=== PATIENT | female | born 1940 | race Caucasian/White ===

== ENCOUNTER 2020-01-03 09:51 | Emergency (ER) | payer BC ==
[2020-01-03 10:00] VITALS: RESP 18; TEMP 98.1
[2020-01-03] MEDS ORDERED: SODIUM CHLORIDE 0.9% 1,000 ML IV STA (10:23)
--- NOTE | 2020-01-03 10:31 | ED ---
General Adult HPI - General Chief complaint: Weakness Stated complaint: weakness Time Seen by Provider: 01/03/20 10:09 Source: patient, family, RN notes reviewed Mode of arrival: wheelchair Limitations: no limitations - History of Present Illness Initial comments: Patient is a pleasant 79-year-old female presenting to the emergency department generalized weakness. Onset of symptoms was 3 or 4 days ago. Patient has decreased appetite however no nausea or vomiting. No constipation or diarrhea. There is a mild unsettling in her stomach however. No significant pain. No isolated area of weakness. No confusion. Patient is able to do her general activities however is very fatigued. No urinary symptoms. No chest pain or dyspnea. - Related Data Allergies Allergy/AdvReac Type Severity Reaction Status Date / Time Penicillins Allergy Unknown Verified 01/03/20 10:01 Review of Systems ROS Statement: Those systems with pertinent positive or pertinent negative responses have been documented in the HPI. ROS Other: All systems not noted in ROS Statement are negative. Constitutional: Denies: fever, chills Eyes: Denies: eye pain ENT: Denies: ear pain Respiratory: Denies: cough Cardiovascular: Denies: chest pain Endocrine: Reports: fatigue Gastrointestinal: Denies: nausea, vomiting, diarrhea, constipation Genitourinary: Denies: dysuria Musculoskeletal: Denies: back pain Skin: Denies: rash Neurological: Denies: weakness Past Medical History Past Medical History: Diabetes Mellitus, Hypertension, Myocardial Infarction (CT) Additional Past Medical History / Comment(s): 1 functioning kidney Past Surgical History: Appendectomy, Heart Catheterization With Stent, T onsillectomy, Tubal Ligation Smoking Status: Never smoker Past Alcohol Use History: None Reported Past Drug Use History: None Reported General Exam Limitations: no limitations General appearance: alert, in no apparent distress Head exam: Present: normocephalic Eye exam: Present: normal appearance, PERRL, EOMI ENT exam: Present: normal oropharynx Neck exam: Present: normal inspection. Absent: tenderness, meningismus Respiratory exam: Present: normal lung sounds bilaterally Cardiovascular Exam: Present: regular rate, normal rhythm GI/Abdominal exam: Present: soft. Absent: tenderness Extremities exam: Present: normal inspection. Absent: pedal edema, calf tenderness Neurological exam: Present: alert, oriented X3, CN II-XII intact. Absent: motor sensory deficit Psychiatric exam: Present: normal affect, normal mood Skin exam: Present: normal color Course Vital Signs 01/03/20 09:57 Temperature 98.1 F Pulse Rate 69 Respiratory 18 Rate Blood Pressure 158/79 O2 Sat by Pulse 96 Oximetry EKG Findings - EKG Comments: EKG Findings:: Normal sinus rhythm 72. VT 176. QRS 86. QT 432. QTC 473. Normal axis. Normal QRS. Nonspecific T waves. Medical Decision Making - Medical Decision Making Patient reevaluated and resting comfortably in bed. Patient has no additional complaints at this time. Abdomen remained soft and nontender. Patient states she is still able to do activities of daily living. Patient and family updated on results. Patient and family are comfortable with discharge home. Advised to follow-up in emergency Department is symptoms worsen. Advised to follow-up with primary care physician this week. - Lab Data Result diagrams: 01/03/20 10:31 01/03/20 10:31 Lab Results 01/03/20 01/03/20 01/03/20 Range/Units 10:23 10:31 10:31 WBC 8.2 (3.8-10.6) k/uL RBC 4.61 (3.80-5.40) m/uL Hgb 13.9 (11.4-16.0) gm/dL Hct 42.4 (34.0-46.0) % MCV 92.0 (80.0-100.0) fL MCH 30.3 (25.0-35.0) pg MCHC 32.9 (31.0-37.0) g/dL RDW 12.7 (11.5-15.5) % Plt Count 272 (150-450) k/uL Neutrophils % 65 % Lymphocytes % 26 % Monocytes % 5 % Eosinophils % 2 % Basophils % 1 % Neutrophils # 5.4 (1.3-7.7) k/uL Lymphocytes # 2.2 (1.0-4.8) k/uL Monocytes # 0.4 (0-1.0) k/uL Eosinophils # 0.1 (0-0.7) k/uL Basophils # 0.1 (0-0.2) k/uL PT (9.0-12.0) sec INR (<1.2) APTT (22.0-30.0) sec Sodium 137 (137-145) mmol/L Potassium 4.4 (3.5-5.1) mmol/L Chloride 104 (98-107) mmol/L Carbon Dioxide 21 L (22-30) mmol/L Anion Gap 12 mmol/L BUN 16 (7-17) mg/dL Creatinine 1.10 H (0.52-1.04) mg/dL Est GFR (CKD-EPI)AfAm 54 (>60 ml/min/1.73 sqM) Est GFR (CKD-EPI)NonAf 47 (>60 ml/min/1.73 sqM) Glucose 145 H (74-99) mg/dL Calcium 9.5 (8.4-10.2) mg/dL Magnesium 1.9 (1.6-2.3) mg/dL Total Bilirubin 1.1 (0.2-1.3) mg/dL AST 22 (14-36) U/L ALT 17 (4-34) U/L Alkaline Phosphatase 84 (38-126) U/L Troponin I (0.000-0.034) ng/mL Total Protein 7.4 (6.3-8.2) g/dL Albumin 4.1 (3.5-5.0) g/dL TSH 3.580 (0.465-4.680) mIU/L Free T4 1.58 (0.78-2.19) ng/dL Free T3 pg/mL 3.6 (2.8-5.3) pg/ml Urine Color Yellow Urine Appearance Cloudy H (Clear) Urine pH 5.5 (5.0-8.0) Ur Specific Proctor 1.018 (1.001-1.035) Urine Protein 1+ H (Negative) Urine Glucose (UA) Negative (Negative) Urine Ketones Negative (Negative) Urine Blood Trace H (Negative) Urine Nitrite Negative (Negative) Urine Bilirubin Negative (Negative) Urine Urobilinogen <2.0 (<2.0) mg/dL Ur Leukocyte Esterase Negative (Negative) Urine RBC <1 (0-5) /hpf Urine WBC 3 (0-5) /hpf Ur Squamous Epith Cells 6 H (0-4) /hpf Urine Bacteria Few H (None) /hpf Urine Mucus Rare H (None) /hpf 01/03/20 01/03/20 Range/Units 10:31 10:31 WBC (3.8-10.6) k/uL RBC (3.80-5.40) m/uL Hgb (11.4-16.0) gm/dL Hct (34.0-46.0) % MCV (80.0-100.0) fL MCH (25.0-35.0) pg MCHC (31.0-37.0) g/dL RDW (11.5-15.5) % Plt Count (150-450) k/uL Neutrophils % % Lymphocytes % % Monocytes % % Eosinophils % % Basophils % % Neutrophils # (1.3-7.7) k/uL Lymphocytes # (1.0-4.8) k/uL Monocytes # (0-1.0) k/uL Eosinophils # (0-0.7) k/uL Basophils # (0-0.2) k/uL PT 9.8 (9.0-12.0) sec INR 0.9 (<1.2) APTT 21.7 L (22.0-30.0) sec Sodium (137-145) mmol/L Potassium (3.5-5.1) mmol/L Chloride (98-107) mmol/L Carbon Dioxide (22-30) mmol/L Anion Gap mmol/L BUN (7-17) mg/dL Creatinine (0.52-1.04) mg/dL Est GFR (CKD-EPI)AfAm (>60 ml/min/1.73 sqM) Est GFR (CKD-EPI)NonAf (>60 ml/min/1.73 sqM) Glucose (74-99) mg/dL Calcium (8.4-10.2) mg/dL Magnesium (1.6-2.3) mg/dL Total Bilirubin (0.2-1.3) mg/dL AST (14-36) U/L ALT (4-34) U/L Alkaline Phosphatase (38-126) U/L Troponin I <0.012 (0.000-0.034) ng/mL Total Protein (6.3-8.2) g/dL Albumin (3.5-5.0) g/dL TSH (0.465-4.680) mIU/L Free T4 (0.78-2.19) ng/dL Free T3 pg/mL (2.8-5.3) pg/ml Urine Color Urine Appearance (Clear) Urine pH (5.0-8.0) Ur Specific Proctor (1.001-1.035) Urine Protein (Negative) Urine Glucose (UA) (Negative) Urine Ketones (Negative) Urine Blood (Negative) Urine Nitrite (Negative) Urine Bilirubin (Negative) Urine Urobilinogen (<2.0) mg/dL Ur Leukocyte Esterase (Negative) Urine RBC (0-5) /hpf Urine WBC (0-5) /hpf Ur Squamous Epith Cells (0-4) /hpf Urine Bacteria (None) /hpf Urine Mucus (None) /hpf - Radiology Data Radiology results: image reviewed (Chest x-ray shows some calcification) Disposition Clinical Impression: Fatigue Disposition: HOME SELF-CARE Condition: Stable Instructions (If sedation given, give patient instructions): Fatigue (ED) Additional Instructions: Please follow-up with primary care physician in the next couple days for recheck. Return for increased weakness, abdominal pain, confusion, fevers, worsening symptoms or other concerns. Is patient prescribed a controlled substance at d/c from ED?: No Referrals: Thomas Lima MD [Primary Care Provider] - 1-2 days Time of Disposition: 12:11
[2020-01-03 10:43] LABS: Basophils # (A) 0.1 k/uL (0-0.2); Basophils % (A) 1 %; Eosinophils # (A) 0.1 k/uL (0-0.7); Eosinophils % (A) 2 %; HCT 42.4 % (34.0-46.0); HGB 13.9 gm/dL (11.4-16.0); Lymphocytes # (A) 2.2 k/uL (1.0-4.8); Lymphocytes % (A) 26 %; MCH 30.3 pg (25.0-35.0); MCHC 32.9 g/dL (31.0-37.0); Mean Platelet Volume 8.9; Monocytes # (A) 0.4 k/uL (0-1.0); Monocytes % (A) 5 %; Neutrophils # (A) 5.4 k/uL (1.3-7.7); Neutrophils % (A) 65 %; Platelet Count 272 k/uL (150-450); RBC 4.61 m/uL (3.80-5.40); RDW 12.7 % (11.5-15.5); WBC 8.2 k/uL (3.8-10.6)
[2020-01-03 10:52] LABS: Albumin 4.1 g/dL (3.5-5.0); Calcium 9.5 mg/dL (8.4-10.2); Magnesium 1.9 mg/dL (1.6-2.3); Potassium 4.4 mmol/L (3.5-5.1); Total Bilirubin 1.1 mg/dL (0.2-1.3); Total Protein 7.4 g/dL (6.3-8.2)
--- NOTE | 2020-01-03 10:54 | XR ---
EXAMINATION TYPE: XR chest 2V DATE OF EXAM: 01/03/2020 COMPARISON: NONE HISTORY: Weakness TECHNIQUE: Frontal and lateral views of the chest are obtained. FINDINGS: Patient is rotated. Aorta is dense. There is calcification present over the paratracheal re gion on the left towards the left lung apex, left upper lobe. Coronary artery calcifications present. Arthropathy present at the, clavicular joints. There is no focal air space opacity, pleural effusion , or pneumothorax seen. The cardiac silhouette size is within normal limits. The osseous structure s are intact. IMPRESSION: Calcification thought likely to be vascular overlying the left upper lobe. Coronary cristian ry disease.
[2020-01-03 10:58] LABS: INR 0.9 (<1.2); Prothrombin Time 9.8 sec (9.0-12.0)
[2020-01-03 11:03] LABS: Appearance,Urine Cloudy (Clear); Bacteria,Urine Few /hpf; Bilirubin,Urine Negative (Negative); Blood,Urine Trace (Negative); Color,Urine Yellow; Glucose,Urine (UA) Negative (Negative); Ketones,Urine Negative (Negative); Leukocyte Esterase,Urine Negative (Negative); Mucus,Urine Rare /hpf; Nitrite,Urine Negative (Negative); PH, Urine 5.5 (5.0-8.0); Protein,Urine 1+ (Negative); RBC,Urine <1 /hpf (0-5); Specific Gravity,Urine 1.018 (1.001-1.035); Squamous Epithelial Cell,Urine 6 /hpf (0-4); Urobilinogen,Urine <2.0 mg/dL (<2.0); WBC,Urine 3 /hpf (0-5)
[2020-01-03 11:07] LABS: Partial Thromboplastin Time 21.7 sec (22.0-30.0); T4, Free (Free Thyroxine) 1.58 ng/dL (0.78-2.19)
[2020-01-03] MEDS ORDERED: SODIUM CHLORIDE 0.9% 500 ML 500 ML IV ONE (12:00)
[2020-01-03] MEDS ORDERED: SODIUM CHLORIDE 0.9% 500 ML 500 ML IV STA (12:04)
[2020-01-03 12:50] VITALS: BP 146/62; PULSE 60
== END 2020-01-03 12:49 | disposition home or self-care (01) ==
LOC: EC 09:51
DX: R53.83 Other fatigue (principal); R53.1 Weakness; R63.0 Anorexia; I25.2 Old myocardial infarction; Z88.0 Allergy status to penicillin; Z95.5 Presence of coronary angioplasty implant and graft; Z53.8 Procedure and treatment not carried out for other reasons
CPT/HCPCS: 36415; 71046; 80053; 81001; 83735; 84439; 84443; 84481; 84484; 85025; 85610; 85730; 93005; 96360; 99285

== ENCOUNTER 2021-04-01 20:10 | Emergency (ER) | payer BC ==
[2021-04-01 20:38] VITALS: TEMP 99.1
[2021-04-01] MEDS ORDERED: SODIUM CHLORIDE 0.9% 1,000 ML IV STA (21:23)
--- NOTE | 2021-04-01 21:24 | ED ---
Weakness HPI - General Chief complaint: Upper Respiratory Infection Stated complaint: not eating or drinking Time Seen by Provider: 04/01/21 21:21 Source: patient, family, RN notes reviewed, old records reviewed Mode of arrival: wheelchair Limitations: no limitations - History of Present Illness Initial comments: This is an 78-year-old female DF for evaluation she complains weakness and cough. Cough for the point where she can't touch her breath and difficulty sleeping. Patient feels anxious. She also complains of significant weakness but her main complaint is inability to sleep. She has a fevers no nausea vomiting or diarrhea decreased appetite diminished appetite activity level over the last 2-3 days patient has diabetes high blood pressure and does have positive coronavirus vaccine 2 MD Complaint: generalized weakness -: days(s) (3) Severity: moderate Severity scale (1-10): 4 Quality: aching Consistency: constant Improves with: none Worsens with: none Context: history of similar Associated Symptoms: nausea/vomiting, shortness of breath - Related Data Home Medications Medication Instructions Recorded Confirmed Aspirin EC [Ecotrin Low Dose] 81 mg PO DAILY 01/03/20 04/01/21 Atorvastatin [Lipitor] 20 mg PO HS 01/03/20 04/01/21 Cholecalciferol [Vitamin D3 (25 2,000 unit PO DAILY 01/03/20 04/01/21 Mcg = 1000 Iu)] Gabapentin [Neurontin] 300 mg PO HS 01/03/20 04/01/21 Glimepiride [Amaryl] 2 mg PO [id number] 01/03/20 04/01/21 amLODIPine BES/OLMESARTAN MED 1 tab PO DAILY 01/03/20 04/01/21 [amLODIPine BES/OLMESARTAN MED 10-40 mg] metFORMIN HCL [Glucophage] 500 mg PO DAILY 01/03/20 04/01/21 Allergies Allergy/AdvReac Type Severity Reaction Status Date / Time Penicillins Allergy Unknown Verified 01/03/20 12:32 Review of Systems ROS Statement: Those systems with pertinent positive or pertinent negative responses have been documented in the HPI. ROS Other: All systems not noted in ROS Statement are negative. Past Medical History Past Medical History: Diabetes Mellitus, Hypertension, Myocardial Infarction ([place]) Additional Past Medical History / Comment(s): 1 functioning kidney Past Surgical History: Appendectomy, Heart Catheterization With Stent, Tonsillectomy, Tubal Ligation Smoking Status: Former smoker Past Alcohol Use History: None Reported Past Drug Use History: None Reported General Exam Limitations: no limitations General appearance: alert, in no apparent distress Head exam: Present: atraumatic, normocephalic, normal inspection Eye exam: Present: normal appearance, PERRL, EOMI. Absent: scleral icterus, conjunctival injection, periorbital swelling ENT exam: Present: normal exam, mucous membranes moist Neck exam: Present: normal inspection. Absent: tenderness, meningismus, lymphadenopathy Respiratory exam: Present: normal lung sounds bilaterally. Absent: respiratory distress, wheezes, rales, rhonchi, stridor Cardiovascular Exam: Present: regular rate, normal rhythm, normal heart sounds. Absent: systolic murmur, diastolic murmur, rubs, gallop, clicks GI/Abdominal exam: Present: soft, normal bowel sounds. Absent: distended, tenderness, guarding, rebound, rigid Extremities exam: Present: normal inspection, full ROM, normal capillary refill. Absent: tenderness, pedal edema, joint swelling, calf tenderness Back exam: Present: normal inspection Neurological exam: Present: alert, oriented X3, CN II-XII intact Psychiatric exam: Present: normal affect, normal mood Skin exam: Present: warm, dry, intact, normal color. Absent: rash Course Vital Signs 04/01/21 04/01/21 04/01/21 20:32 21:26 23:05 Temperature 99.1 F 99.1 F Pulse Rate 62 65 65 Respiratory 20 18 18 Rate Blood Pressure 143/54 185/79 175/67 O2 Sat by Pulse 93 L 97 97 Oximetry 04/01/21 04/01/21 23:26 23:37 Temperature Pulse Rate 62 64 Respiratory 20 Rate Blood Pressure 171/65 O2 Sat by Pulse 100 Oximetry - Reevaluation(s) Reevaluation #1: 04/01/21 22:27 Medical records reviewed Reevaluation #2: 04/01/21 22:27 Symptoms improved EKG Findings - EKG Comments: EKG Findings:: EKG shows sinus rhythm 61, MT 164 QRS 118 QTC 487 Medical Decision Making - Medical Decision Making 78 female diminished appetite not eating or drinking well symptoms are improving here in the ER family feels comfortable with discharge home - Lab Data Result diagrams: 04/01/21 22:53 06/06/21 22:53 Lab Results 04/01/21 04/01/21 04/01/21 Range/Units 22:53 22:53 22:53 WBC 10.4 (3.8-10.6) k/uL RBC 4.35 (3.80-5.40) m/uL Hgb 13.7 (11.4-16.0) gm/dL Hct 39.5 (34.0-46.0) % MCV 90.8 (80.0-100.0) fL MCH 31.4 (25.0-35.0) pg MCHC 34.6 (31.0-37.0) g/dL RDW 12.8 (11.5-15.5) % Plt Count 203 (150-450) k/uL MPV 9.0 Neutrophils % 67 % Lymphocytes % 23 % Monocytes % 7 % Eosinophils % 1 % Basophils % 1 % Neutrophils # 6.9 (1.3-7.7) k/uL Lymphocytes # 2.3 (1.0-4.8) k/uL Monocytes # 0.7 (0-1.0) k/uL Eosinophils # 0.1 (0-0.7) k/uL Basophils # 0.1 (0-0.2) k/uL PT 9.9 (9.0-12.0) sec INR 0.9 (<1.2) APTT 22.3 (22.0-30.0) sec Sodium 137 (137-145) mmol/L Potassium 4.0 (3.5-5.1) mmol/L Chloride 103 (98-107) mmol/L Carbon Dioxide 24 (22-30) mmol/L Anion Gap 10 mmol/L BUN 21 H (7-17) mg/dL Creatinine 1.05 H (0.52-1.04) mg/dL Est GFR (CKD-EPI)AfAm 57 (>60 ml/min/1.73 sqM) Est GFR (CKD-EPI)NonAf 50 (>60 ml/min/1.73 sqM) Glucose 92 (74-99) mg/dL Plasma Lactic Acid João (0.7-2.0) mmol/L Calcium 8.9 (8.4-10.2) mg/dL Phosphorus 3.1 (2.5-4.5) mg/dL Magnesium 2.1 (1.6-2.3) mg/dL Total Bilirubin 0.5 (0.2-1.3) mg/dL AST 26 (14-36) U/L ALT 14 (4-34) U/L Alkaline Phosphatase 74 (38-126) U/L Creatine Kinase 145 H (30-135) U/L Troponin I (0.000-0.034) ng/mL NT-Pro-B Natriuret Pep pg/mL Total Protein 6.8 (6.3-8.2) g/dL Albumin 3.7 (3.5-5.0) g/dL Coronavirus (PCR) (Not Detectd) 04/01/21 04/01/21 04/01/21 Range/Units 22:53 22:53 22:53 WBC (3.8-10.6) k/uL RBC (3.80-5.40) m/uL Hgb (11.4-16.0) gm/dL Hct (34.0-46.0) % MCV (80.0-100.0) fL MCH (25.0-35.0) pg MCHC (31.0-37.0) g/dL RDW (11.5-15.5) % Plt Count (150-450) k/uL MPV Neutrophils % % Lymphocytes % % Monocytes % % Eosinophils % % Basophils % % Neutrophils # (1.3-7.7) k/uL Lymphocytes # (1.0-4.8) k/uL Monocytes # (0-1.0) k/uL Eosinophils # (0-0.7) k/uL Basophils # (0-0.2) k/uL PT (9.0-12.0) sec INR (<1.2) APTT (22.0-30.0) sec Sodium (137-145) mmol/L Potassium (3.5-5.1) mmol/L Chloride (98-107) mmol/L Carbon Dioxide (22-30) mmol/L Anion Gap mmol/L BUN (7-17) mg/dL Creatinine (0.52-1.04) mg/dL Est GFR (CKD-EPI)AfAm (>60 ml/min/1.73 sqM) Est GFR (CKD-EPI)NonAf (>60 ml/min/1.73 sqM) Glucose (74-99) mg/dL Plasma Lactic Acid João 2.0 (0.7-2.0) mmol/L Calcium (8.4-10.2) mg/dL Phosphorus (2.5-4.5) mg/dL Magnesium (1.6-2.3) mg/dL Total Bilirubin (0.2-1.3) mg/dL AST (14-36) U/L ALT (4-34) U/L Alkaline Phosphatase (38-126) U/L Creatine Kinase (30-135) U/L Troponin I <0.012 (0.000-0.034) ng/mL NT-Pro-B Natriuret Pep 1650 pg/mL Total Protein (6.3-8.2) g/dL Albumin (3.5-5.0) g/dL Coronavirus (PCR) (Not Detectd) 04/01/21 Range/Units 23:41 WBC (3.8-10.6) k/uL RBC (3.80-5.40) m/uL Hgb (11.4-16.0) gm/dL Hct (34.0-46.0) % MCV (80.0-100.0) fL MCH (25.0-35.0) pg MCHC (31.0-37.0) g/dL RDW (11.5-15.5) % Plt Count (150-450) k/uL MPV Neutrophils % % Lymphocytes % % Monocytes % % Eosinophils % % Basophils % % Neutrophils # (1.3-7.7) k/uL Lymphocytes # (1.0-4.8) k/uL Monocytes # (0-1.0) k/uL Eosinophils # (0-0.7) k/uL Basophils # (0-0.2) k/uL PT (9.0-12.0) sec INR (<1.2) APTT (22.0-30.0) sec Sodium (137-145) mmol/L Potassium (3.5-5.1) mmol/L Chloride (98-107) mmol/L Carbon Dioxide (22-30) mmol/L Anion Gap mmol/L BUN (7-17) mg/dL Creatinine (0.52-1.04) mg/dL Est GFR (CKD-EPI)AfAm (>60 ml/min/1.73 sqM) Est GFR (CKD-EPI)NonAf (>60 ml/min/1.73 sqM) Glucose (74-99) mg/dL Plasma Lactic Acid João (0.7-2.0) mmol/L Calcium (8.4-10.2) mg/dL Phosphorus (2.5-4.5) mg/dL Magnesium (1.6-2.3) mg/dL Total Bilirubin (0.2-1.3) mg/dL AST (14-36) U/L ALT (4-34) U/L Alkaline Phosphatase (38-126) U/L Creatine Kinase (30-135) U/L Troponin I (0.000-0.034) ng/mL NT-Pro-B Natriuret Pep pg/mL Total Protein (6.3-8.2) g/dL Albumin (3.5-5.0) g/dL Coronavirus (PCR) Not Detected (Not Detectd) - Radiology Data Radiology results: report reviewed (Chest x-rays negative for acute disease), image reviewed Disposition Clinical Impression: Weakness Disposition: HOME SELF-CARE Condition: Good Instructions (If sedation given, give patient instructions): Weakness (ED) Is patient prescribed a controlled substance at d/c from ED?: No Referrals: Thomas Lima MD [Primary Care Provider] - 1-2 days
--- NOTE | 2021-04-01 22:04 | XR ---
EXAMINATION TYPE: XR chest 2V DATE OF EXAM: 04/01/2021 COMPARISON: 01/03/2020 HISTORY: Weakness TECHNIQUE: FINDINGS: Heart and mediastinum are normal. Lungs are clear of infiltrate. There are chest leads. Bon y thorax is intact. Costophrenic angles are clear. IMPRESSION: No active cardiopulmonary disease. No change.
[2021-04-01] MEDS ORDERED: IPRATROPIUM-ALBUTEROL 3 ML NEB INHALATION STA (22:27)
[2021-04-01] MEDS ORDERED: SODIUM CHLORIDE 0.9% 500 ML 500 ML IV STA (22:27)
[2021-04-01] MEDS ORDERED: DIAZEPAM 5 MG/ML 2 ML INJ IVP STA (22:27)
[2021-04-01] MEDS ORDERED: DEXAMETHASONE SOD PHOSPHATE 10 MG/ML 1 ML VIAL IV STA (22:27)
[2021-04-01 23:14] LABS: Basophils # (A) 0.1 k/uL (0-0.2); Basophils % (A) 1 %; Eosinophils # (A) 0.1 k/uL (0-0.7); Eosinophils % (A) 1 %; HCT 39.5 % (34.0-46.0); HGB 13.7 gm/dL (11.4-16.0); Lymphocytes # (A) 2.3 k/uL (1.0-4.8); Lymphocytes % (A) 23 %; MCH 31.4 pg (25.0-35.0); MCHC 34.6 g/dL (31.0-37.0); MCV 90.8 fL (80.0-100.0); Monocytes # (A) 0.7 k/uL (0-1.0); Monocytes % (A) 7 %; Neutrophils # (A) 6.9 k/uL (1.3-7.7); Neutrophils % (A) 67 %; Platelet Count 203 k/uL (150-450); RBC 4.35 m/uL (3.80-5.40); RDW 12.8 % (11.5-15.5); WBC 10.4 k/uL (3.8-10.6)
[2021-04-01 23:31] LABS: Albumin 3.7 g/dL (3.5-5.0); Calcium 8.9 mg/dL (8.4-10.2); Magnesium 2.1 mg/dL (1.6-2.3); Phosphorus 3.1 mg/dL (2.5-4.5); Total Bilirubin 0.5 mg/dL (0.2-1.3); Total Protein 6.8 g/dL (6.3-8.2)
[2021-04-01 23:35] LABS: INR 0.9 (<1.2); Partial Thromboplastin Time 22.3 sec (22.0-30.0); Prothrombin Time 9.9 sec (9.0-12.0)
[2021-04-01 23:40] VITALS: BP 171/65; PULSE 64; RESP 20
== END 2021-04-02 00:15 | disposition home or self-care (01) ==
LOC: EC 20:10
DX: R53.1 Weakness (principal); E11.9 Type 2 diabetes mellitus without complications; I10 Essential (primary) hypertension; I25.2 Old myocardial infarction; Z90.89 Acquired absence of other organs; Z95.5 Presence of coronary angioplasty implant and graft; Z90.09 Acquired absence of other part of head and neck; Z98.51 Tubal ligation status; Z87.891 Personal history of nicotine dependence
CPT/HCPCS: 94640; 93005; 83880; 80053; 82550; 83605; 83735; 84100; 84484; 85025; 85610; 85730; 87635; 71046; 99285; 96374; 96375; 96361; J1100; J3360

== ENCOUNTER 2022-11-13 19:28 | Emergency (ER) | payer BC ==
--- NOTE | 2022-11-13 20:09 | ED ---
General Adult HPI - General Source: patient, family, RN notes reviewed, old records reviewed Mode of arrival: EMS Limitations: no limitations <Rogeilo Spangler - Last Filed: 11/13/22 21:08> <Yon Tirado - Last Filed: 11/13/22 23:10> - General Chief complaint: Syncope Stated complaint: Near Syncope Time Seen by Provider: 11/13/22 19:28 - History of Present Illness Initial comments: This is an 81-year-old female presents emergency department after having had a syncopal episode. Patient was at [facility] she wasn't feeling well little bit nauseated and then she passed out for approximately 30 seconds according to bystanders. Patient denies any fever chills per patient denies any chest pain palpitations difficulty breathing shortness of breath per patient denies any vomiting however she still nauseous patient patient denies any diarrhea. Patient denies any abdominal pain. Patient states she ate and drank as much as she normally did today. Patient states she still doesn't feel quite right but she can't really describe how she feels off. Patient denies any pain currently. (Rogelio Spangler) - Related Data Home Medications Medication Instructions Recorded Confirmed Aspirin EC [Ecotrin Low Dose] 81 mg PO DAILY 01/03/20 04/01/21 Atorvastatin [Lipitor] 20 mg PO HS 01/03/20 04/01/21 Cholecalciferol [Vitamin D3 (25 2,000 unit PO DAILY 01/03/20 04/01/21 Mcg = 1000 Iu)] Gabapentin [Neurontin] 300 mg PO HS 01/03/20 04/01/21 Glimepiride [Amaryl] 2 mg PO AC-BRKFST 01/03/20 04/01/21 amLODIPine BES/OLMESARTAN MED 1 tab PO DAILY 01/03/20 04/01/21 [amLODIPine BES/OLMESARTAN MED 10-40 mg] metFORMIN HCL [Glucophage] 500 mg PO DAILY 01/03/20 04/01/21 Previous Rx's Medication Instructions Recorded Sulfamethox-Tmp 800-160Mg [Bactrim 1 tab PO Q12HR 7 Days #14 tab 11/13/22 DS 800-160 mg] Allergies Allergy/AdvReac Type Severity Reaction Status Date / Time Penicillins Allergy Unknown Verified 01/03/20 12:32 Review of Systems ROS Other: All systems not noted in ROS Statement are negative. <Rogelio Spangler - Last Filed: 11/13/22 21:08> ROS Other: All systems not noted in ROS Statement are negative. <Yon Tirado - Last Filed: 11/13/22 23:10> ROS Statement: Those systems with pertinent positive or pertinent negative responses have been documented in the HPI. Past Medical History Past Medical History: Diabetes Mellitus, Hypertension, Myocardial Infarction (SD) Additional Past Medical History / Comment(s): 1 functioning kidney Past Surgical History: Appendectomy, Heart Catheterization With Stent, Tonsillectomy, Tubal Ligation Smoking Status: Former smoker Past Alcohol Use History: None Reported Past Drug Use History: None Reported <Rogelio Spangler - Last Filed: 11/13/22 21:08> General Exam Limitations: no limitations <Rogelio Spangler - Last Filed: 11/13/22 21:08> - General Exam Comments Initial Comments: GENERAL: Patient is well-developed and well-nourished. Patient is nontoxic and well- hydrated and is in mild distress. ENT: Neck is soft and supple. No significant lymphadenopathy is noted. Oropharynx is clear. Moist mucous membranes. Neck has full range of motion without eliciting any pain. EYES: The sclera were anicteric and conjunctiva were pink and moist. Extraocular movements were intact and pupils were equal round and reactive to light. Eyelids were unremarkable. PULMONARY: Unlabored respirations. Good breath sounds bilaterally. No audible rales rhonchi or wheezing was noted. CARDIOVASCULAR: There is a regular rate and rhythm without any murmurs gallops or rubs. ABDOMEN: Soft and nontender with normal bowel sounds. SKIN: Skin is clear with no lesions or rashes and otherwise unremarkable. NEUROLOGIC: Patient is alert and oriented x3. Cranial nerves II through XII are grossly intact. Motor and sensory are also intact. Normal speech, volume and content. Symmetrical smile. MUSCULOSKELETAL: Normal extremities with adequate strength and full range of motion. LYMPHATICS: No significant lymphadenopathy is noted PSYCHIATRIC: Normal psychiatric evaluation. (Rogelio Spangler) Course Vital Signs 11/13/22 11/13/22 19:39 19:59 Temperature 98 F Pulse Rate 66 60 Respiratory 16 16 Rate Blood Pressure 130/55 155/55 O2 Sat by Pulse 94 L 96 Oximetry Medical Decision Making - Lab Data Result diagrams: 11/13/22 19:49 11/13/22 19:49 <Rogelio Spangler - Last Filed: 11/13/22 21:08> - Lab Data Result diagrams: 11/13/22 19:49 11/13/22 19:49 <Yon Tirado - Last Filed: 11/13/22 23:10> - Medical Decision Making EKG was interpreted by myself. EKG shows sinus rhythm at 63 bpm NC interval is 183 QRS is 130 QT interval 500 QTC is 507 per patient's EKG shows no ST segment elevation or depression. Patient has a right bundle branch block Was pt. sent in by a medical professional or institution (, PA, PARTS CATALOGUER, urgent care, hospital, or detention...) When possible be specific @ -[No] Did you speak to anyone other than the patient for history (EMS, parent, family, police, friend...)? What history was obtained from this source @ -EMS and family gave the history since the patient was passed out and unable to remember passing out Did you review nursing and triage notes (agree or disagree)? Why? @ -[I reviewed and agree with nursing and triage notes] Were old charts reviewed (outside hosp., previous admission, EMS record, old EKG, old radiological studies, urgent care reports/EKG's, detention records)? Report findings @ -I compared to old EKGs and labs current labs and EKGs Differential Diagnosis (chest pain, altered mental status, abdominal pain women, abdominal pain men, vaginal bleeding, weakness, fever, dyspnea, syncope, headache, dizziness, GI bleed, back pain, seizure, CVA, palpatations, mental health)? @ -Differential Syncope: Valvular disease, hypertrophic cardiomyopathy, pulmonary embolism, tamponade, tachycardia, bradycardia, SD, hypovolemia, hemorrhage, dissection, anemia, intracranial hemorrhage, seizure, hypoglycemia, carbon monoxide poisoning, this is not meant to be an all-inclusive list. EKG interpreted by me (3pts min.). @ -[As above] X-rays interpreted by me (1pt min.). @ -Chest x-ray shows no acute abnormality. CT interpreted by me (1pt min.). @ -[None done] U/S interpreted by me (1pt. min.). @ -[None done] What testing was considered but not performed or refused? (CT, X-rays, U/S, labs)? Why? @ -[None] What meds were considered but not given or refused? Why? @ -[None] Did you discuss the management of the patient with other professionals (professionals i.e. , PA, PARTS CATALOGUER, lab, RT, psych nurse, social media project manager, cpr ambulance driver, teacher, environmental health officer, case consultant)? Give summary @ -[No] Was smoking cessation discussed for >3mins.? @ -[No] Was critical care preformed (if so, how long)? @ -[No] Were there social determinants of health that impacted care today? How? (Homelessness, low income, unemployed, alcoholism, drug addiction, transportation, low edu. Level, literacy, decrease access to med. care, fdc, rehab)? @ -[No] Was there de-escalation of care discussed even if they declined (Discuss DNR or withdrawal of care, Hospice)? DNR status @ -[No] What co-morbidities impacted this encounter? (DM, HTN, Smoking, COPD, CAD, Cancer, CVA, ARF, Chemo, Hep., AIDS, mental health diagnosis, sleep apnea, morbid obesity)? @ -[None] Was patient admitted / discharged? Hospital course, mention meds given and route, prescriptions, significant lab abnormalities, going to OR and other pertinent info. @ -Patient was orthostatic positive in the emergency department and received [address] Yon Tirado will be following up on this patient and taking over the care of 9 PM (Rogelio Spangler) Was patient admitted / discharged? Hospital course, mention meds given and route, prescriptions, significant lab abnormalities, going to OR and other pertinent info. @ -Patient was signed out to me pending results of urinalysis. Patient presents orthostatic positive for what appears to be a syncopal episode while she was [facility] a [facility]. She is feeling improved at this time. She states she cannot pee but will continue to try. Overall feels improved at this time. Laboratory studies and workup were unremarkable. Her, including just a slight leukocytosis of 11. Troponin undetectable. Covid, flu, RSV negative. Chest x- ray revealed no acute cardiopulmonary process. We are just awaiting the urinalysis. Patient was in agreement with waiting, and we'll continue to attempt. After long delay her finally able to send a urine sample. It is positive for UTI. Patient will be started on antibiotics, Bactrim twice a day and she'll receive a dose here in the department. I did the patient and her family members and they were in agreement with this plan. She'll be discharged home at this time. Strict return precautions were discussed. I will provide the patient with a prescription for Bactrim. I instructed the patient to follow up with their PCP in the next 1-3 days. I explained that the patient should return to the emergency department if they experience any worsening symptoms. Strict return precautions were discussed with the patient. The patient expressed understanding of these instructions. I answered all questions that the patient had. The patient was discharged home in good condition with their prescriptions and follow up information. Undiagnosed new problem with uncertain prognosis? @ -No Drug Therapy requiring intensive monitoring for toxicity (Heparin, Nitro, Insulin, Cardizem)? @ -No Were any procedures done? @ -No Diagnosis/symptom? @ -UTI Acute, or Chronic, or Acute on Chronic? @ -Acute Uncomplicated (without systemic symptoms) or Complicated (systemic symptoms)? @ -Complicated Side effects of treatment? @ -No Exacerbation, Progression, or Severe Exacerbation? @ -No Poses a threat to life or bodily function? How? (Chest pain, USA, SD, pneumonia, PE, COPD, DKA, ARF, appy, cholecystitis, CVA, Diverticulitis, Homicidal, Suicidal, threat to staff... and all critical care pts) @ -Yes if untreated can result in significant morbidity and mortality. Diagnosis/symptom? @ -Syncope Acute, or Chronic, or Acute on Chronic? @ -Acute Uncomplicated (without systemic symptoms) or Complicated (systemic symptoms)? @ -Uncomplicated Side effects of treatment? @ -none Exacerbation, Progression, or Severe Exacerbation] @ -no Poses a threat to life or bodily function? @ -no (Yon Tirado) - Lab Data Lab Results 11/13/22 11/13/22 11/13/22 Range/Units 19:49 19:49 19:49 WBC 11.0 H (3.8-10.6) k/uL RBC 4.10 (3.80-5.40) m/uL Hgb 12.6 (11.4-16.0) gm/dL Hct 38.4 (34.0-46.0) % MCV 93.5 (80.0-100.0) fL MCH 30.8 (25.0-35.0) pg MCHC 33.0 (31.0-37.0) g/dL RDW 13.1 (11.5-15.5) % Plt Count 221 (150-450) k/uL MPV 9.8 Neutrophils % 59 % Lymphocytes % 32 % Monocytes % 4 % Eosinophils % 3 % Basophils % 1 % Neutrophils # 6.4 (1.3-7.7) k/uL Lymphocytes # 3.5 (1.0-4.8) k/uL Monocytes # 0.5 (0-1.0) k/uL Eosinophils # 0.3 (0-0.7) k/uL Basophils # 0.1 (0-0.2) k/uL Sodium 138 (137-145) mmol/L Potassium 4.1 (3.5-5.1) mmol/L Chloride 108 H (98-107) mmol/L Carbon Dioxide 23 (22-30) mmol/L Anion Gap 7 mmol/L BUN 19 H (7-17) mg/dL Creatinine 0.93 (0.52-1.04) mg/dL Est GFR (CKD-EPI)AfAm 66 (>60 ml/min/1.73 sqM) Est GFR (CKD-EPI)NonAf 57 (>60 ml/min/1.73 sqM) Glucose 116 H (74-99) mg/dL Calcium 8.7 (8.4-10.2) mg/dL Magnesium 1.7 (1.6-2.3) mg/dL Total Bilirubin 0.7 (0.2-1.3) mg/dL AST 18 (14-36) U/L ALT 16 (4-34) U/L Alkaline Phosphatase 56 (38-126) U/L Troponin I <0.012 (0.000-0.034) ng/mL Total Protein 6.3 (6.3-8.2) g/dL Albumin 3.4 L (3.5-5.0) g/dL Urine Color Urine Appearance (Clear) Urine pH (5.0-8.0) Ur Specific [place] (1.001-1.035) Urine Protein (Negative) Urine Glucose (UA) (Negative) Urine Ketones (Negative) Urine Blood (Negative) Urine Nitrite (Negative) Urine Bilirubin (Negative) Urine Urobilinogen (<2.0) mg/dL Ur Leukocyte Esterase (Negative) Urine RBC (0-5) /hpf Urine WBC (0-5) /hpf Ur Squamous Epith Cells (0-4) /hpf Urine Bacteria (None) /hpf Hyaline Casts (0-2) /lpf Urine Mucus (None) /hpf Influenza Type A (PCR) (Not Detectd) Influenza Type B (PCR) (Not Detectd) RSV (PCR) (Not Detectd) SARS-CoV-2 (PCR) (Not Detectd) 11/13/22 11/13/22 Range/Units 19:49 22:09 WBC (3.8-10.6) k/uL RBC (3.80-5.40) m/uL Hgb (11.4-16.0) gm/dL Hct (34.0-46.0) % MCV (80.0-100.0) fL MCH (25.0-35.0) pg MCHC (31.0-37.0) g/dL RDW (11.5-15.5) % Plt Count (150-450) k/uL MPV Neutrophils % % Lymphocytes % % Monocytes % % Eosinophils % % Basophils % % Neutrophils # (1.3-7.7) k/uL Lymphocytes # (1.0-4.8) k/uL Monocytes # (0-1.0) k/uL Eosinophils # (0-0.7) k/uL Basophils # (0-0.2) k/uL Sodium (137-145) mmol/L Potassium (3.5-5.1) mmol/L Chloride (98-107) mmol/L Carbon Dioxide (22-30) mmol/L Anion Gap mmol/L BUN (7-17) mg/dL Creatinine (0.52-1.04) mg/dL Est GFR (CKD-EPI)AfAm (>60 ml/min/1.73 sqM) Est GFR (CKD-EPI)NonAf (>60 ml/min/1.73 sqM) Glucose (74-99) mg/dL Calcium (8.4-10.2) mg/dL Magnesium (1.6-2.3) mg/dL Total Bilirubin (0.2-1.3) mg/dL AST (14-36) U/L ALT (4-34) U/L Alkaline Phosphatase (38-126) U/L Troponin I (0.000-0.034) ng/mL Total Protein (6.3-8.2) g/dL Albumin (3.5-5.0) g/dL Urine Color Yellow Urine Appearance Cloudy H (Clear) Urine pH 5.0 (5.0-8.0) Ur Specific [place] 1.014 (1.001-1.035) Urine Protein Trace H (Negative) Urine Glucose (UA) Negative (Negative) Urine Ketones Negative (Negative) Urine Blood Negative (Negative) Urine Nitrite Positive H (Negative) Urine Bilirubin Negative (Negative) Urine Urobilinogen <2.0 (<2.0) mg/dL Ur Leukocyte Esterase Large H (Negative) Urine RBC 2 (0-5) /hpf Urine WBC 20 H (0-5) /hpf Ur Squamous Epith Cells 1 (0-4) /hpf Urine Bacteria Moderate H (None) /hpf Hyaline Casts 8 H (0-2) /lpf Urine Mucus Occasional H (None) /hpf Influenza Type A (PCR) Not Detected (Not Detectd) Influenza Type B (PCR) Not Detected (Not Detectd) RSV (PCR) Not Detected (Not Detectd) SARS-CoV-2 (PCR) Not Detected (Not Detectd) Disposition <Rogelio Spangler - Last Filed: 11/13/22 21:08> Is patient prescribed a controlled substance at d/c from ED?: No Time of Disposition: 22:50 <Yon Tirado - Last Filed: 11/13/22 23:10> Clinical Impression: Syncope, UTI (urinary tract infection) Disposition: HOME SELF-CARE Condition: Good Instructions (If sedation given, give patient instructions): Urinary Tract Infection in Women (ED) Prescriptions: Sulfamethox-Tmp 800-160Mg [Bactrim DS 800-160 mg] 1 tab PO Q12HR 7 Days #14 tab Referrals: Thomas Lima MD [Primary Care Provider] - 1-2 days
[2022-11-13 20:18] LABS: Basophils # (A) 0.1 k/uL (0-0.2); Basophils % (A) 1 %; Eosinophils # (A) 0.3 k/uL (0-0.7); Eosinophils % (A) 3 %; HCT 38.4 % (34.0-46.0); HGB 12.6 gm/dL (11.4-16.0); Lymphocytes # (A) 3.5 k/uL (1.0-4.8); Lymphocytes % (A) 32 %; MCH 30.8 pg (25.0-35.0); MCV 93.5 fL (80.0-100.0); Mean Platelet Volume 9.8; Monocytes # (A) 0.5 k/uL (0-1.0); Monocytes % (A) 4 %; Neutrophils # (A) 6.4 k/uL (1.3-7.7); Neutrophils % (A) 59 %; Platelet Count 221 k/uL (150-450); RDW 13.1 % (11.5-15.5)
[2022-11-13 20:28] LABS: Albumin 3.4 g/dL (3.5-5.0); Calcium 8.7 mg/dL (8.4-10.2); Magnesium 1.7 mg/dL (1.6-2.3); Potassium 4.1 mmol/L (3.5-5.1); Total Bilirubin 0.7 mg/dL (0.2-1.3); Total Protein 6.3 g/dL (6.3-8.2)
[2022-11-13] MEDS ORDERED: SODIUM CHLORIDE 0.9% 1,000 ML IV ONE (20:36)
--- NOTE | 2022-11-13 20:50 | XR ---
EXAMINATION TYPE: XR chest 2V DATE OF EXAM: 11/13/2022 8:46 PM COMPARISON: Chest radiographs from 04/01/2021 TECHNIQUE: XR chest 2V Frontal and lateral views of the chest. CLINICAL INDICATION:Female, 81 years old with history of Chest Pain; FINDINGS: Lungs/Pleura: There is no evidence of pleural effusion, focal consolidation, or pneumothorax. Hyperi nflation. Pulmonary vascularity: Unremarkable. Heart/mediastinum: Cardiomediastinal silhouette is unremarkable. Atherosclerotic calcifications are seen in the aorta. Musculoskeletal: No acute osseous pathology. IMPRESSION: 1. No acute cardiopulmonary disease/process. No significant change from prior examination. 2. COPD changes.
[2022-11-13 22:38] LABS: Appearance,Urine Cloudy (Clear); Bacteria,Urine Moderate /hpf; Bilirubin,Urine Negative (Negative); Blood,Urine Negative (Negative); Color,Urine Yellow; Glucose,Urine (UA) Negative (Negative); Hyaline Casts,Urine 8 /lpf (0-2); Ketones,Urine Negative (Negative); Leukocyte Esterase,Urine Large (Negative); Mucus,Urine Occasional /hpf; Nitrite,Urine Positive (Negative); Protein,Urine Trace (Negative); RBC,Urine 2 /hpf (0-5); Specific Gravity,Urine 1.014 (1.001-1.035); Squamous Epithelial Cell,Urine 1 /hpf (0-4); Urobilinogen,Urine <2.0 mg/dL (<2.0); WBC,Urine 20 /hpf (0-5)
[2022-11-13] MEDS ORDERED: SULFAMETHOX-TMP 800-160MG 1 EACH TAB PO STA ×2 (22:51→22:54)
[2022-11-13 23:46] VITALS: BP 132/87; PULSE 72; RESP 18; TEMP 98.2
== END 2022-11-13 23:46 | disposition home or self-care (01) ==
LOC: EC 19:28
DX: R55 Syncope and collapse (principal); N39.0 Urinary tract infection, site not specified; E11.9 Type 2 diabetes mellitus without complications; I10 Essential (primary) hypertension; I25.2 Old myocardial infarction; Z87.891 Personal history of nicotine dependence; Z88.0 Allergy status to penicillin; Z79.84 Long term (current) use of oral hypoglycemic drugs; Z79.899 Other long term (current) drug therapy; Z20.822 Contact with and (suspected) exposure to COVID-19; Z79.82 Long term (current) use of aspirin
CPT/HCPCS: 36415; 71046; 80053; 81001; 83735; 84484; 85025; 87077; 87086; 87186; 87636; 93005; 96360; 99285

== ENCOUNTER 2022-11-16 15:51 | Inpatient (IN) | payer BC ==
[2022-11-16] MEDS ORDERED: SODIUM CHLORIDE 0.9% 1,000 ML IV STA (16:05)
[2022-11-16] MEDS ORDERED: ONDANSETRON 4 MG/2 ML VIAL IVP STA (16:05)
[2022-11-16 16:11] LABS: Glucose,Whole Blood 55 mg/dL (70-110)
--- NOTE | 2022-11-16 16:12 | ED ---
Weakness HPI - General Chief complaint: Weakness Stated complaint: Weakness Time Seen by Provider: 11/16/22 15:59 Source: patient, family, EMS, RN notes reviewed Mode of arrival: EMS Limitations: no limitations - History of Present Illness Initial comments: This is an 81-year-old female who presents to the emergency department for weakness. States that this has been present for the last 3-4 days. She was evaluated here on 11/13 and diagnosed with UTI. She was given a prescription for Bactrim, however she feels like she has not gotten any better. States that she feels nauseous and queasy and has not been wanting to eat, subsequently causing her blood sugar to drop. She is a diabetic but does not use insulin. She has not had any medication changes recently. She had 2 falls today. This morning, she states that she woke up on the floor. She does not remember this fall and is unsure if she hit her head or sustained any injuries. Earlier this afternoon, when she was walking to the bathroom, she subsequently felt weak again, causing her to stumble and fall, landing on her bottom. She's not currently complaining of any pain. She takes a baby aspirin daily and is otherwise not on any blood thinners. Denies any chest pain or shortness of breath. Denies any fevers, chills, sore throat, cough, dyspnea, chest pain, palpitat ions, abdominal pain, vomiting, diarrhea, back pain, or headaches. MD Complaint: generalized weakness Onset/Timin -: days(s) - Related Data Home Medications Medication Instructions Recorded Confirmed Aspirin EC [Ecotrin Low Dose] 81 mg PO DAILY 01/03/20 11/16/22 Atorvastatin [Lipitor] 20 mg PO 01/03/20 11/16/22 Cholecalciferol [Vitamin D3 (25 50 mcg PO DAILY 01/03/20 11/16/22 Mcg = 1000 Iu)] Gabapentin [Neurontin] 300 mg PO 01/03/20 11/16/22 Glimepiride [Amaryl] 2 mg PO DAILY 01/03/20 11/16/22 metFORMIN HCL [Glucophage] 500 mg PO DAILY 01/03/20 11/16/22 Alendronate Sodium [Fosamax] 70 mg PO TU 11/16/22 11/16/22 Anastrozole [Arimidex] 1 mg PO DAILY 11/16/22 11/16/22 amLODIPine BESYLATE/BENAZEPRIL 1 cap PO DAILY 11/16/22 11/16/22 [amLODIPine BESYLATE/BENAZEPRIL 10-40 mg] hydrALAZINE HCL [Apresoline] 10 mg PO TID 11/16/22 11/16/22 hydroCHLOROthiazide [Hydrodiuril] 25 mg PO DAILY 11/16/22 11/16/22 Previous Rx's Medication Instructions Recorded Sulfamethox-Tmp 800-160Mg [Bactrim 1 tab PO Q12HR 7 Days #14 tab 11/13/22 DS 800-160 mg] Allergies Allergy/AdvReac Type Severity Reaction Status Date / Time Penicillins Allergy "Passes Verified 11/16/22 17:47 out" Review of Systems ROS Statement: Those systems with pertinent positive or pertinent negative responses have been documented in the HPI. ROS Other: All systems not noted in ROS Statement are negative. Past Medical History Past Medical History: Diabetes Mellitus, Hypertension, Myocardial Infarction (MA) Additional Past Medical History / Comment(s): 1 functioning kidney History of Any Multi-Drug Resistant Organisms: None Reported Past Surgical History: Appendectomy, Heart Catheterization With Stent, Tonsillectomy, Tubal Ligation Past Psychological History: No Psychological Hx Reported Smoking Status: Former smoker Past Alcohol Use History: None Reported Past Drug Use History: None Reported General Exam Limitations: no limitations General appearance: alert, in no apparent distress Head exam: Present: atraumatic, normocephalic, normal inspection Respiratory exam: Present: normal lung sounds bilaterally. Absent: respiratory distress, wheezes, rales, rhonchi, stridor Cardiovascular Exam: Present: regular rate, normal rhythm, normal heart sounds. Absent: systolic murmur, diastolic murmur, rubs, gallop, clicks GI/Abdominal exam: Present: soft, normal bowel sounds. Absent: distended, tenderness, guarding, rebound, rigid Neurological exam: Present: alert, oriented X3, CN II-XII intact Psychiatric exam: Present: normal affect, normal mood Skin exam: Present: warm, dry, intact, normal color. Absent: rash Course Vital Signs 11/16/22 11/16/22 11/16/22 15:52 19:00 20:17 Temperature 98.2 F Pulse Rate 75 77 74 Respiratory 18 16 Rate Blood Pressure 146/75 160/59 135/65 O2 Sat by Pulse 96 97 Oximetry Medical Decision Making - Medical Decision Making This is an 81-year-old female who presents to the emergency department for generalized weakness. Was pt. sent in by a medical professional or institution? @ -No Did you speak to anyone other than the patient for history? @ -EMS and family Did you review nursing and triage notes? @ -Agree, accurate with regards to the patient's symptoms. Were old charts reviewed? @ -Yes, urine culture from 11/13. Preliminary results show gram negative bacilli, however the bacteria and culture/sensitivity report are not back. CBC and CMP from 11/13 were also reviewed. Differential Diagnosis? @ -Differential Weakness: Hypoglycemia, shock, sepsis, hyponatremia, anemia, infection, MA, ETOH, adverse medicine reaction, overdose, stroke, this is not meant to be an all-inclusive list. EKG interpreted by me (3pts min.)? @ -Sinus rhythm. Ventricular rate 77 bpm, [place] interval 188 ms, QRS duration 126 ms, QTC 473 ms. X-rays interpreted by me (1pt min.)? @ -Chest x-ray obtained, my interpretation identifies no localized consolidations or infiltrates. X-ray of the lumbosacral spine obtained as well and my interpretation identifies no acute fractures. CT interpreted by me (1pt min.)? @ -Computed tomography scan of the brain and c-spine obtained. My interpretation identifies no evidence of an acute intracranial hemorrhage, skull fracture, or cervical spine fracture. What testing was considered but not performed? (CT, X-rays, U/S, labs)? Why? @ -None What meds were considered but not given? Why? @ -None Did you discuss the management of the patient with other professionals? @ -No Did you reconcile home meds? @ -No Was smoking cessation discussed for >3mins.? @ -No Was critical care preformed (if so, how long)? @ -No Were there social determinants of health that impacted care today? How? (Homelessness, low income, unemployed, alcoholism, drug addiction, transportation, low edu. Level, literacy, decrease access to med. care, nursing home, rehab)? @ -No Was there de-escalation of care discussed even if they declined? (Discuss DNR or withdrawal of care, Hospice)? @ -No What co-morbidities impacted this encounter? (DM, HTN, Smoking, COPD, CAD, Cancer, CVA, Hep., AIDS, mental health diagnosis, sleep apnea, morbid obesity)? @ -DM, HTN, obesity, CKD, hx of an MA. Was patient admitted / discharged? @ -Per EMS, her blood sugar was 62 and they subsequently gave her 15 mg of oral glucose. Recheck of blood sugar was found to be 55. She was subsequently given half of an ampule of dextrose. Repeat glucose was 99. Lab work reveals no evidence of leukocytosis, however she does have a lactic acid of 4.4. She was subsequently given a liter bolus of normal saline. Her kidney function has also worsened when compared with her lab work on 11/13. Given that she had a fall with unknown injury and possible loss of consciousness, computed tomography scan of the brain and c-spine was obtained. This revealed no acute findings. Additionally, x-ray of the chest and lumbosacral spine were obtained with no acute findings noted. She was given a dose of ceftriaxone with blood cultures obtained prior. Given the hypoglycemia, progressive weakness, SUSSY, falls, and elevated lactic acid, the patient was admitted to medicine for further management. I did hold her Amaryl and Metformin home medications due to the hypoglycemia. PT/OT consults placed as well. Undiagnosed new problem with uncertain prognosis? @ -Hypoglycemia, weakness Drug Therapy requiring intensive monitoring for toxicity (Heparin, Nitro, Insulin, Cardizem)? @ -None Were any procedures done? @ -None Diagnosis/symptom? @ -Hypoglycemia Acute, or Chronic, or Acute on Chronic? @ -Acute Uncomplicated (without systemic symptoms) or Complicated (systemic symptoms)? @ -Complicated Side effects of treatment? @ -None Exacerbation, Progression, or Severe Exacerbation] @ -Not applicable Poses a threat to life or bodily function? @ -Yes Diagnosis/symptom? @ -Weakness Acute, or Chronic, or Acute on Chronic? @ -Acute Uncomplicated (without systemic symptoms) or Complicated (systemic symptoms)? @ -Complicated Side effects of treatment? @ -None Exacerbation, Progression, or Severe Exacerbation] @ -Not applicable Poses a threat to life or bodily function? @ -Yes Diagnosis/symptom? @ -SUSSY Acute, or Chronic, or Acute on Chronic? @ -Acute Uncomplicated (without systemic symptoms) or Complicated (systemic symptoms)? @ -Complicated Side effects of treatment? @ -None Exacerbation, Progression, or Severe Exacerbation] @ -Exacerbation Poses a threat to life or bodily function? @ -Yes Diagnosis/symptom? @ -Frequent falls Acute, or Chronic, or Acute on Chronic? @ -Acute Uncomplicated (without systemic symptoms) or Complicated (systemic symptoms)? @ -Complicated Side effects of treatment? @ -None Exacerbation, Progression, or Severe Exacerbation] @ -Not applicable Poses a threat to life or bodily function? @ -Yes This case was discussed in detail with the attending ED physician, Dr. Ratliff. Presentation, findings, and treatment plan discussed in detail as well. - Lab Data Result diagrams: 11/16/22 16:14 11/16/22 16:14 Lab Results 11/16/22 11/16/22 11/16/22 Range/Units 16:09 16:14 16:14 WBC 9.2 (3.8-10.6) k/uL RBC 3.93 (3.80-5.40) m/uL Hgb 12.1 (11.4-16.0) gm/dL Hct 37.0 (34.0-46.0) % MCV 94.2 (80.0-100.0) fL MCH 30.9 (25.0-35.0) pg MCHC 32.8 (31.0-37.0) g/dL RDW 13.5 (11.5-15.5) % Plt Count 218 (150-450) k/uL MPV 9.6 Neutrophils % 80 % Lymphocytes % 12 % Monocytes % 5 % Eosinophils % 1 % Basophils % 1 % Neutrophils # 7.4 (1.3-7.7) k/uL Lymphocytes # 1.1 (1.0-4.8) k/uL Monocytes # 0.5 (0-1.0) k/uL Eosinophils # 0.1 (0-0.7) k/uL Basophils # 0.1 (0-0.2) k/uL PT 10.0 (9.0-12.0) sec INR 0.9 (<1.2) APTT 22.2 (22.0-30.0) sec Sodium (137-145) mmol/L Potassium (3.5-5.1) mmol/L Chloride (98-107) mmol/L Carbon Dioxide (22-30) mmol/L Anion Gap mmol/L BUN (7-17) mg/dL Creatinine (0.52-1.04) mg/dL Est GFR (CKD-EPI)AfAm (>60 ml/min/1.73 sqM) Est GFR (CKD-EPI)NonAf (>60 ml/min/1.73 sqM) Glucose (74-99) mg/dL POC Glucose (mg/dL) 55 L (70-110) mg/dL POC Glu Continuity Director ID Malgorzata Casey Lactic Ac Sepsis Rflx Plasma Lactic Acid João (0.7-2.0) mmol/L Calcium (8.4-10.2) mg/dL Magnesium (1.6-2.3) mg/dL Total Bilirubin (0.2-1.3) mg/dL AST (14-36) U/L ALT (4-34) U/L Alkaline Phosphatase (38-126) U/L Troponin I (0.000-0.034) ng/mL Total Protein (6.3-8.2) g/dL Albumin (3.5-5.0) g/dL Urine Color Urine Appearance (Clear) Urine pH (5.0-8.0) Ur Specific [place] (1.001-1.035) Urine Protein (Negative) Urine Glucose (UA) (Negative) Urine Ketones (Negative) Urine Blood (Negative) Urine Nitrite (Negative) Urine Bilirubin (Negative) Urine Urobilinogen (<2.0) mg/dL Ur Leukocyte Esterase (Negative) Urine WBC Clumps (None) /hpf Ur Squamous Epith Cells (0-4) /hpf Triple Phos Crystals (None) /hpf Urine Bacteria (None) /hpf Influenza Type A (PCR) (Not Detectd) Influenza Type B (PCR) (Not Detectd) RSV (PCR) (Not Detectd) SARS-CoV-2 (PCR) (Not Detectd) 11/16/22 11/16/22 11/16/22 Range/Units 16:14 16:14 16:14 WBC (3.8-10.6) k/uL RBC (3.80-5.40) m/uL Hgb (11.4-16.0) gm/dL Hct (34.0-46.0) % MCV (80.0-100.0) fL MCH (25.0-35.0) pg MCHC (31.0-37.0) g/dL RDW (11.5-15.5) % Plt Count (150-450) k/uL MPV Neutrophils % % Lymphocytes % % Monocytes % % Eosinophils % % Basophils % % Neutrophils # (1.3-7.7) k/uL Lymphocytes # (1.0-4.8) k/uL Monocytes # (0-1.0) k/uL Eosinophils # (0-0.7) k/uL Basophils # (0-0.2) k/uL PT (9.0-12.0) sec INR (<1.2) APTT (22.0-30.0) sec Sodium 135 L (137-145) mmol/L Potassium 4.1 (3.5-5.1) mmol/L Chloride 105 (98-107) mmol/L Carbon Dioxide 19 L (22-30) mmol/L Anion Gap 11 mmol/L BUN 14 (7-17) mg/dL Creatinine 1.11 H (0.52-1.04) mg/dL Est GFR (CKD-EPI)AfAm 53 (>60 ml/min/1.73 sqM) Est GFR (CKD-EPI)NonAf 46 (>60 ml/min/1.73 sqM) Glucose 56 L (74-99) mg/dL POC Glucose (mg/dL) (70-110) mg/dL POC Glu Continuity Director ID Lactic Ac Sepsis Rflx Plasma Lactic Acid João 4.4 H* (0.7-2.0) mmol/L Calcium 9.1 (8.4-10.2) mg/dL Magnesium 1.6 (1.6-2.3) mg/dL Total Bilirubin 0.6 (0.2-1.3) mg/dL AST 22 (14-36) U/L ALT 17 (4-34) U/L Alkaline Phosphatase 52 (38-126) U/L Troponin I <0.012 (0.000-0.034) ng/mL Total Protein 6.4 (6.3-8.2) g/dL Albumin 3.5 (3.5-5.0) g/dL Urine Color Urine Appearance (Clear) Urine pH (5.0-8.0) Ur Specific [place] (1.001-1.035) Urine Protein (Negative) Urine Glucose (UA) (Negative) Urine Ketones (Negative) Urine Blood (Negative) Urine Nitrite (Negative) Urine Bilirubin (Negative) Urine Urobilinogen (<2.0) mg/dL Ur Leukocyte Esterase (Negative) Urine WBC Clumps (None) /hpf Ur Squamous Epith Cells (0-4) /hpf Triple Phos Crystals (None) /hpf Urine Bacteria (None) /hpf Influenza Type A (PCR) (Not Detectd) Influenza Type B (PCR) (Not Detectd) RSV (PCR) (Not Detectd) SARS-CoV-2 (PCR) (Not Detectd) 11/16/22 11/16/22 11/16/22 Range/Units 16:25 16:25 17:07 WBC (3.8-10.6) k/uL RBC (3.80-5.40) m/uL Hgb (11.4-16.0) gm/dL Hct (34.0-46.0) % MCV (80.0-100.0) fL MCH (25.0-35.0) pg MCHC (31.0-37.0) g/dL RDW (11.5-15.5) % Plt Count (150-450) k/uL MPV Neutrophils % % Lymphocytes % % Monocytes % % Eosinophils % % Basophils % % Neutrophils # (1.3-7.7) k/uL Lymphocytes # (1.0-4.8) k/uL Monocytes # (0-1.0) k/uL Eosinophils # (0-0.7) k/uL Basophils # (0-0.2) k/uL PT (9.0-12.0) sec INR (<1.2) APTT (22.0-30.0) sec Sodium (137-145) mmol/L Potassium (3.5-5.1) mmol/L Chloride (98-107) mmol/L Carbon Dioxide (22-30) mmol/L Anion Gap mmol/L BUN (7-17) mg/dL Creatinine (0.52-1.04) mg/dL Est GFR (CKD-EPI)AfAm (>60 ml/min/1.73 sqM) Est GFR (CKD-EPI)NonAf (>60 ml/min/1.73 sqM) Glucose (74-99) mg/dL POC Glucose (mg/dL) (70-110) mg/dL POC Glu Continuity Director ID Lactic Ac Sepsis Rflx Y Plasma Lactic Acid João (0.7-2.0) mmol/L Calcium (8.4-10.2) mg/dL Magnesium (1.6-2.3) mg/dL Total Bilirubin (0.2-1.3) mg/dL AST (14-36) U/L ALT (4-34) U/L Alkaline Phosphatase (38-126) U/L Troponin I (0.000-0.034) ng/mL Total Protein (6.3-8.2) g/dL Albumin (3.5-5.0) g/dL Urine Color Yellow Urine Appearance Turbid H (Clear) Urine pH 5.5 (5.0-8.0) Ur Specific [place] 1.014 (1.001-1.035) Urine Protein Negative (Negative) Urine Glucose (UA) Negative (Negative) Urine Ketones Negative (Negative) Urine Blood Negative (Negative) Urine Nitrite Negative (Negative) Urine Bilirubin Negative (Negative) Urine Urobilinogen <2.0 (<2.0) mg/dL Ur Leukocyte Esterase Negative (Negative) Urine WBC Clumps Moderate H (None) /hpf Ur Squamous Epith Cells 1 (0-4) /hpf Triple Phos Crystals Many H (None) /hpf Urine Bacteria Rare H (None) /hpf Influenza Type A (PCR) Not Detected (Not Detectd) Influenza Type B (PCR) Not Detected (Not Detectd) RSV (PCR) Not Detected (Not Detectd) SARS-CoV-2 (PCR) Not Detected (Not Detectd) 11/16/22 Range/Units 17:29 WBC (3.8-10.6) k/uL RBC (3.80-5.40) m/uL Hgb (11.4-16.0) gm/dL Hct (34.0-46.0) % MCV (80.0-100.0) fL MCH (25.0-35.0) pg MCHC (31.0-37.0) g/dL RDW (11.5-15.5) % Plt Count (150-450) k/uL MPV Neutrophils % % Lymphocytes % % Monocytes % % Eosinophils % % Basophils % % Neutrophils # (1.3-7.7) k/uL Lymphocytes # (1.0-4.8) k/uL Monocytes # (0-1.0) k/uL Eosinophils # (0-0.7) k/uL Basophils # (0-0.2) k/uL PT (9.0-12.0) sec INR (<1.2) APTT (22.0-30.0) sec Sodium (137-145) mmol/L Potassium (3.5-5.1) mmol/L Chloride (98-107) mmol/L Carbon Dioxide (22-30) mmol/L Anion Gap mmol/L BUN (7-17) mg/dL Creatinine (0.52-1.04) mg/dL Est GFR (CKD-EPI)AfAm (>60 ml/min/1.73 sqM) Est GFR (CKD-EPI)NonAf (>60 ml/min/1.73 sqM) Glucose (74-99) mg/dL POC Glucose (mg/dL) 99 (70-110) mg/dL POC Glu Continuity Director ID Malgorzata Casey Lactic Ac Sepsis Rflx Plasma Lactic Acid João (0.7-2.0) mmol/L Calcium (8.4-10.2) mg/dL Magnesium (1.6-2.3) mg/dL Total Bilirubin (0.2-1.3) mg/dL AST (14-36) U/L ALT (4-34) U/L Alkaline Phosphatase (38-126) U/L Troponin I (0.000-0.034) ng/mL Total Protein (6.3-8.2) g/dL Albumin (3.5-5.0) g/dL Urine Color Urine Appearance (Clear) Urine pH (5.0-8.0) Ur Specific [place] (1.001-1.035) Urine Protein (Negative) Urine Glucose (UA) (Negative) Urine Ketones (Negative) Urine Blood (Negative) Urine Nitrite (Negative) Urine Bilirubin (Negative) Urine Urobilinogen (<2.0) mg/dL Ur Leukocyte Esterase (Negative) Urine WBC Clumps (None) /hpf Ur Squamous Epith Cells (0-4) /hpf Triple Phos Crystals (None) /hpf Urine Bacteria (None) /hpf Influenza Type A (PCR) (Not Detectd) Influenza Type B (PCR) (Not Detectd) RSV (PCR) (Not Detectd) SARS-CoV-2 (PCR) (Not Detectd) - Radiology Data Radiology results: report reviewed, image reviewed Disposition Clinical Impression: Weakness, Hypoglycemia, SUSSY (acute kidney injury), Frequent falls Disposition: ADMITTED IP TO THIS HOSP
[2022-11-16] MEDS ORDERED: DEXTROSE 50% SYRINGE 50 ML IVP STA (16:17)
[2022-11-16 16:46] LABS: Basophils # (A) 0.1 k/uL (0-0.2); Basophils % (A) 1 %; Eosinophils # (A) 0.1 k/uL (0-0.7); Eosinophils % (A) 1 %; HGB 12.1 gm/dL (11.4-16.0); Lymphocytes # (A) 1.1 k/uL (1.0-4.8); Lymphocytes % (A) 12 %; MCH 30.9 pg (25.0-35.0); MCHC 32.8 g/dL (31.0-37.0); MCV 94.2 fL (80.0-100.0); Mean Platelet Volume 9.6; Monocytes # (A) 0.5 k/uL (0-1.0); Monocytes % (A) 5 %; Neutrophils # (A) 7.4 k/uL (1.3-7.7); Neutrophils % (A) 80 %; Platelet Count 218 k/uL (150-450); RBC 3.93 m/uL (3.80-5.40); RDW 13.5 % (11.5-15.5); WBC 9.2 k/uL (3.8-10.6)
[2022-11-16 17:00] LABS: INR 0.9 (<1.2); Partial Thromboplastin Time 22.2 sec (22.0-30.0)
--- NOTE | 2022-11-16 17:03 | CT ---
EXAMINATION TYPE: CT brain kirit reddy DATE OF EXAM: 11/16/2022 COMPARISON: None HISTORY: weakness, fall CT DLP: 1300.3 mGycm Automated exposure control for dose reduction was used. Images obtained of the brain and cervical spine with no contrast. There is cerebral cortical atrophy. There is no mass effect or midline shift. No sign of intracranial hemorrhage. The calvarium is intact. No evidence of cerebral edema. The cervical vertebra have normal alignment. There is degenerative disc space narrowing at C4-5 and C 5-6 with spurring of the endplates. There is multilevel hypertrophic cervical facet arthropathy. Ther e is anterior and posterior osteophyte formation of the endplates at C4-5 and C5-6. No compression fr acture. No subluxation. IMPRESSION: Moderate spondylosis in the lower cervical spine. No fracture. Moderate facet arthropathy at C1-C2 level. Cerebral atrophy. No acute intracranial abnormality.
[2022-11-16 17:04] LABS: Albumin 3.5 g/dL (3.5-5.0); Calcium 9.1 mg/dL (8.4-10.2); Total Bilirubin 0.6 mg/dL (0.2-1.3); Total Protein 6.4 g/dL (6.3-8.2)
--- NOTE | 2022-11-16 17:05 | XR ---
EXAMINATION TYPE: XR chest 2V DATE OF EXAM: 11/16/2022 COMPARISON: 11/13/2022 HISTORY: Weakness TECHNIQUE: 2 views FINDINGS: Heart is normal. Lungs are clear. Diaphragm is normal. Bony thorax is intact. Thoracic aort a is atheromatous. IMPRESSION: No active cardiopulmonary disease. Normal heart. No change.
--- NOTE | 2022-11-16 17:06 | XR ---
EXAMINATION TYPE: XR lumbosacral spine min 4V DATE OF EXAM: 11/16/2022 COMPARISON: NONE HISTORY: Pain TECHNIQUE: 5 views FINDINGS: The lumbar vertebrae have fairly normal alignment. There is minor spurring of the endplates . No significant disc space narrowing. Sacroiliac joints are normal. No significant compression defor mity. Abdominal aorta is atheromatous. IMPRESSION: Mild spondylotic changes. No fracture.
[2022-11-16 17:08] LABS: Magnesium 1.6 mg/dL (1.6-2.3); Potassium 4.1 mmol/L (3.5-5.1)
[2022-11-16 17:31] LABS: Glucose,Whole Blood 99 mg/dL (70-110)
[2022-11-16 18:17] LABS: Appearance,Urine Turbid (Clear); Bacteria,Urine Rare /hpf; Bilirubin,Urine Negative (Negative); Blood,Urine Negative (Negative); Color,Urine Yellow; Glucose,Urine (UA) Negative (Negative); Ketones,Urine Negative (Negative); Leukocyte Esterase,Urine Negative (Negative); Nitrite,Urine Negative (Negative); PH, Urine 5.5 (5.0-8.0); Protein,Urine Negative (Negative); Specific Gravity,Urine 1.014 (1.001-1.035); Squamous Epithelial Cell,Urine 1 /hpf (0-4); Triple Phosphate Crystal,Urine Many /hpf; Urobilinogen,Urine <2.0 mg/dL (<2.0)
[2022-11-16] MEDS ORDERED: ACETAMINOPHEN TAB 325 MG TAB PO PRN (18:41)
[2022-11-16] MEDS ORDERED: HYDROcodone/APAP 5-325MG 1 EACH TAB PO PRN (18:41)
[2022-11-16] MEDS ORDERED: ONDANSETRON 4 MG/2 ML VIAL IVP PRN (18:41)
[2022-11-16] MEDS ORDERED: NALOXONE 0.4 MG/ML 1 ML VIAL IV PRN (18:41)
[2022-11-16] MEDS ORDERED: cefTRIAXone IN SWFI 1,000 MG/10 ML SYRINGE IVP STA (18:45)
[2022-11-16] MEDS: GABAPENTIN 300 MG CAP PO SCH (20:15)
[2022-11-16] MEDS: ATORVASTATIN 20 MG TAB PO SCH (20:15)
[2022-11-16] MEDS: SODIUM CHLORIDE 0.9% 1,000 ML IV SCH (20:32)
[2022-11-16] MEDS: hydrALAZINE HCL 10 MG TAB PO SCH (20:49)
[2022-11-17] MEDS: PANTOPRAZOLE 40 MG/10 ML VIAL IVP SCH ×3 (00:24→21:26)
[2022-11-17 06:03] LABS: Glucose,Whole Blood 60 mg/dL (70-110)
[2022-11-17 06:23] LABS: Glucose,Whole Blood 70 mg/dL (70-110)
[2022-11-17] MEDS ORDERED: PANTOPRAZOLE 40 MG/10 ML VIAL IV SCH (09:00)
[2022-11-17] MEDS: ASPIRIN 81 MG PO SCH (09:19)
[2022-11-17] MEDS: CHOLECALCIFEROL 25 MCG (1000 IU) TABLET PO SCH (09:19)
[2022-11-17] MEDS: amLODIPine 10 MG TAB PO SCH (09:20)
[2022-11-17] MEDS: lisinopriL 20 MG TAB PO SCH (09:20)
[2022-11-17] MEDS: ANASTROZOLE 1 MG TAB PO SCH (09:20)
[2022-11-17] MEDS: hydrALAZINE HCL 10 MG TAB PO SCH ×3 (09:20→20:29)
[2022-11-17] MEDS: hydroCHLOROthiazide 25 MG TAB PO SCH (09:20)
[2022-11-17 11:42] LABS: Glucose,Whole Blood 68 mg/dL (70-110)
--- NOTE | 2022-11-17 16:16 | P.HPIM ---
History of Present Illness H&P Date: 11/17/22 Chief Complaint: Weakness 81-year-old female with history of hypertension, diabetes mellitus, CAD, who presents to the emergency department for weakness. States that this has been present for the last 3-4 days. She was evaluated here on 11/13 and diagnosed with UTI. She was given a prescription for Bactrim, however she feels like she has not gotten any better. States that she feels nauseous and queasy and has not been wanting to eat, subsequently causing her blood sugar to drop. She is a diabetic but does not use insulin. She has not had any medication changes re cently. She had 2 falls today. This morning, she states that she woke up on the floor. She does not remember this fall and is unsure if she hit her head or sustained any injuries. Earlier this afternoon, when she was walking to the bathroom, she subsequently felt weak again, causing her to stumble and fall, landing on her bottom. She's not currently complaining of any pain. She takes a baby aspirin daily and is otherwise not on any blood thinners. Denies any chest pain or shortness of breath. EKG completed in ED reveals sinus rhythm with ventricular rate of [address] or T-wave changes Chest x-ray is negative for any consolidations or infiltrates; x-ray of LS-spine does not reveal any fractures CT of the brain and C-spine was completed which did not reveal any acute intracr anial hemorrhage or any signs of skull fractures or cervical spine fractures Per EMS, her blood sugar was 62 and they subsequently gave her 15 mg of oral glucose. Recheck of blood sugar was found to be 55. She was subsequently given half of an ampule of dextrose. Repeat glucose was 99. Lab work reveals no evidence of leukocytosis, however she does have a lactic acid of 4.4. She was subsequently given a liter bolus of normal saline. Her kidney function has also worsened when compared with her lab work on 11/13. Given that she had a fall with unknown injury and possible loss of consciousness, computed tomography scan of the brain and c-spine was obtained. This revealed no acute findings. Additionally, x-ray of the chest and lumbosacral spine were obtained with no acute findings noted. She was given a dose of ceftriaxone with blood cultures obtained prior. Given the hypoglycemia, progressive weakness, SUSSY, falls, and elevated lactic acid, the patient was admitted to medicine for further management. PT/OT consults placed as well. Review of Systems REVIEW OF SYSTEMS: CONSTITUTIONAL: No fever, no malaise, no fatigue. HEENT: No recent visual problems or hearing problems. Denied any sore throat. CARDIOVASCULAR: No chest pain, orthopnea, PND, no palpitations, no syncope. PULMONARY: No shortness of breath, no cough, no hemoptysis. GASTROINTESTINAL: No diarrhea, no nausea, no vomiting, no abdominal pain. NEUROLOGICAL: No headaches, no weakness, no numbness. HEMATOLOGICAL: Denies any bleeding or petechiae. GENITOURINARY: Denies any burning micturition, frequency, or urgency. MUSCULOSKELETAL/RHEUMATOLOGICAL: Denies any joint pain, swelling, or any muscle pain. ENDOCRINE: Denies any polyuria or polydipsia. The rest of the 14-point review of systems is negative. Past Medical History Past Medical History: Diabetes Mellitus, Hypertension, Myocardial Infarction ( [place]) Additional Past Medical History / Comment(s): 1 functioning kidney Last Myocardial Infarction Date:: 1989 History of Any Multi-Drug Resistant Organisms: None Reported Past Surgical History: Appendectomy, Heart Catheterization With Stent, Tonsillectomy, Tubal Ligation Past Anesthesia/Blood Transfusion Reactions: No Reported Reaction Date of Last Stent Placement:: 1989 Past Psychological History: No Psychological Hx Reported Smoking Status: Former smoker Past Alcohol Use History: None Reported Past Drug Use History: None Reported - Past Family History Mother Family Medical History: Diabetes Mellitus, Myocardial Infarction (MS) Father Family Medical History: Diabetes Mellitus, Myocardial Infarction (MS) Medications and Allergies Home Medications Medication Instructions Recorded Confirmed Type Aspirin EC [Ecotrin Low Dose] 81 mg PO DAILY 01/03/20 11/16/22 History Atorvastatin [Lipitor] 20 mg PO HS 01/03/20 11/16/22 History Cholecalciferol [Vitamin D3 (25 50 mcg PO DAILY 01/03/20 11/16/22 History Mcg = 1000 Iu)] Gabapentin [Neurontin] 300 mg PO HS 01/03/20 11/16/22 History Glimepiride [Amaryl] 2 mg PO DAILY 01/03/20 11/16/22 History metFORMIN HCL [Glucophage] 500 mg PO DAILY 01/03/20 11/16/22 History Sulfamethox-Tmp 800-160Mg [Bactrim 1 tab PO Q12HR 7 Days #14 tab 11/13/22 Rx DS 800-160 mg] Alendronate Sodium [Fosamax] 70 mg PO TU 11/16/22 11/16/22 History Anastrozole [Arimidex] 1 mg PO DAILY 11/16/22 11/16/22 History amLODIPine BESYLATE/BENAZEPRIL 1 cap PO DAILY 11/16/22 11/16/22 History [amLODIPine BESYLATE/BENAZEPRIL 10-40 mg] hydrALAZINE HCL [Apresoline] 10 mg PO TID 11/16/22 11/16/22 History hydroCHLOROthiazide [Hydrodiuril] 25 mg PO DAILY 11/16/22 11/16/22 History Allergies Allergy/AdvReac Type Severity Reaction Status Date / Time Penicillins Allergy "Passes Verified 11/16/22 17:47 out" Physical Exam Vitals: Vital Signs Temp Pulse Pulse Resp BP BP Pulse Ox 11/17/22 03:18 98 F 71 16 163/64 92 L 11/16/22 23:25 98.3 F 69 18 147/60 93 L 11/16/22 20:40 97.8 F 86 18 166/54 94 L 11/16/22 20:17 74 16 135/65 97 11/16/22 19:00 77 160/59 11/16/22 15:52 98.2 F 75 18 146/75 96 Intake and Output 11/16/22 11/17/22 11/17/22 22:59 06:59 14:59 Other: # Voids 1 1 Weight 78.018 kg PHYSICAL EXAMINATION: GENERAL: The patient is alert and oriented x3, not in any acute distress. Well developed, well nourished. HEENT: Pupils are round and equally reacting to light. EOMI. No scleral icterus. No conjunctival pallor. Normocephalic, atraumatic. No pharyngeal erythema. No thyromegaly. CARDIOVASCULAR: S1 and S2 present. No murmurs, rubs, or gallops. PULMONARY: Chest is clear to auscultation, no wheezing or crackles. ABDOMEN: Soft, nontender, nondistended, normoactive bowel sounds. No palpable organomegaly. MUSCULOSKELETAL: No joint swelling or deformity. EXTREMITIES: No cyanosis, clubbing, or pedal edema. NEUROLOGICAL: Gross neurological examination did not reveal any focal deficits. SKIN: No rashes. Results CBC & Chem 7: 11/16/22 16:14 11/16/22 16:14 Labs: Abnormal Lab Results - Last 24 Hours (Table) 11/16/22 11/16/22 11/16/22 Range/Units 16:09 16:14 16:14 Sodium 135 L (137-145) mmol/L Carbon Dioxide 19 L (22-30) mmol/L Creatinine 1.11 H (0.52-1.04) mg/dL Glucose 56 L (74-99) mg/dL POC Glucose (mg/dL) 55 L (70-110) mg/dL Plasma Lactic Acid João 4.4 H* (0.7-2.0) mmol/L Urine Appearance (Clear) Urine WBC Clumps (None) /hpf Triple Phos Crystals (None) /hpf Urine Bacteria (None) /hpf 11/16/22 11/16/22 11/16/22 Range/Units 16:25 19:40 23:04 Sodium (137-145) mmol/L Carbon Dioxide (22-30) mmol/L Creatinine (0.52-1.04) mg/dL Glucose (74-99) mg/dL POC Glucose (mg/dL) (70-110) mg/dL Plasma Lactic Acid João 3.7 H* 2.2 H* (0.7-2.0) mmol/L Urine Appearance Turbid H (Clear) Urine WBC Clumps Moderate H (None) /hpf Triple Phos Crystals Many H (None) /hpf Urine Bacteria Rare H (None) /hpf 11/17/22 Range/Units 06:02 Sodium (137-145) mmol/L Carbon Dioxide (22-30) mmol/L Creatinine (0.52-1.04) mg/dL Glucose (74-99) mg/dL POC Glucose (mg/dL) 60 L (70-110) mg/dL Plasma Lactic Acid Jooã (0.7-2.0) mmol/L Urine Appearance (Clear) Urine WBC Clumps (None) /hpf Triple Phos Crystals (None) /hpf Urine Bacteria (None) /hpf Thrombosis Risk Factor Assmnt - Choose All That Apply Any of the Below Risk Factors Present?: Yes Each Factor Represents 1 point: Medical pt on bed rest, Obesity (BMI >25) Other Risk Factors: No Each Risk Factor Represents 3 Points: Age 75 years or older Other congenital or acquired thrombophilia - If yes, enter type in comment: No Thrombosis Risk Factor Assessment Total Risk Factor Score: 5 Thrombosis Risk Factor Assessment Level: High Risk Assessment and Plan Assessment: 1. Severe persistent hypoglycemia - Patient was discussed with family at bedside; patient lives at home with son 2. Mild acute renal injury; patient has been placed on IV fluids in form of normal saline at a rate of 1 30 mL an hour; monitor strict GARTH's, daily weights, renal function and electrolytes; avoid nephrotoxins and hypotension; patient has been placed back on hydrochlorothiazide and lisinopril; we will plan to hold if renal function deteriorates 3. UTI; patient is placed on Rocephin 1 g IV daily; await blood and urine cultures with plans to adjust antibiotics as needed 4. Lactic acidosis; likely related to UTI although white blood count remains within normal limit; patient did receive IV fluids in ED and remains on maintenance IV fluids in form of normal saline at a rate of 1 30 mL an hour 5. Weakness/debility/falls; PT/OT is consulted; patient might benefit from short-term rehab 6. Hypertension; continue with home dose of amlodipine 10 mg daily, hydralazine 10 mg by mouth 3 times a day, lisinopril 40 mg daily and hydrochlorothiazide 25 mg daily 7. Hyperlipidemia; Lipitor 20 mg by mouth daily at bedtime 8. Gastro-esophageal reflux disease; Protonix 40 mg IV twice a day
[2022-11-17 16:55] LABS: Glucose,Whole Blood 98 mg/dL (70-110)
[2022-11-17] MEDS: SODIUM CHLORIDE 0.9% 1,000 ML IV SCH ×2 (17:35)
[2022-11-17 20:13] LABS: Glucose,Whole Blood 162 mg/dL (70-110)
[2022-11-17] MEDS: GABAPENTIN 300 MG CAP PO SCH (20:29)
[2022-11-17] MEDS: ATORVASTATIN 20 MG TAB PO SCH (20:30)
[2022-11-18] MEDS: SODIUM CHLORIDE 0.9% 1,000 ML IV SCH ×3 (00:59→19:01)
[2022-11-18 06:09] LABS: Glucose,Whole Blood 99 mg/dL (70-110)
[2022-11-18] MEDS: CHOLECALCIFEROL 25 MCG (1000 IU) TABLET PO SCH (09:06)
[2022-11-18] MEDS: ASPIRIN 81 MG PO SCH (09:06)
[2022-11-18] MEDS: hydroCHLOROthiazide 25 MG TAB PO SCH (09:06)
[2022-11-18] MEDS: hydrALAZINE HCL 10 MG TAB PO SCH ×3 (09:06→21:12)
[2022-11-18] MEDS: lisinopriL 20 MG TAB PO SCH (09:07)
[2022-11-18] MEDS: amLODIPine 10 MG TAB PO SCH (09:07)
[2022-11-18] MEDS: ANASTROZOLE 1 MG TAB PO SCH (09:07)
[2022-11-18] MEDS: PANTOPRAZOLE 40 MG/10 ML VIAL IVP SCH ×2 (09:07→21:12)
[2022-11-18] MEDS: metFORMIN 500 MG TAB PO SCH ×2 (09:09→17:30)
[2022-11-18 09:59] LABS: Potassium 3.9 mmol/L (3.5-5.1)
[2022-11-18 10:40] LABS: Basophils # (A) 0.1 k/uL (0-0.2); Basophils % (A) 2 %; Eosinophils # (A) 0.4 k/uL (0-0.7); Eosinophils % (A) 6 %; HCT 33.3 % (34.0-46.0); HGB 10.9 gm/dL (11.4-16.0); Lymphocytes # (A) 2.1 k/uL (1.0-4.8); Lymphocytes % (A) 33 %; MCH 31.3 pg (25.0-35.0); MCHC 32.7 g/dL (31.0-37.0); MCV 95.8 fL (80.0-100.0); Mean Platelet Volume 9.9; Monocytes # (A) 0.5 k/uL (0-1.0); Monocytes % (A) 8 %; Neutrophils # (A) 3.2 k/uL (1.3-7.7); Neutrophils % (A) 50 %; Platelet Count 162 k/uL (150-450); RBC 3.47 m/uL (3.80-5.40); RDW 13.3 % (11.5-15.5); WBC 6.4 k/uL (3.8-10.6)
--- NOTE | 2022-11-18 11:12 | P.PN ---
Subjective 81-year-old female with history of hypertension, diabetes mellitus, CAD, who presents to the emergency department for weakness. States that this has been present for the last 3-4 days. She was evaluated here on 11/13 and diagnosed with UTI. She was given a prescription for Bactrim, however she feels like she has not gotten any better. States that she feels nauseous and queasy and has not been wanting to eat, subsequently causing her blood sugar to drop. She is a diabetic but does not use insulin. She has not had any medication changes r ecently. She had 2 falls today. This morning, she states that she woke up on the floor. She does not remember this fall and is unsure if she hit her head or sustained any injuries. Earlier this afternoon, when she was walking to the bathroom, she subsequently felt weak again, causing her to stumble and fall, landing on her bottom. She's not currently complaining of any pain. She takes a baby aspirin daily and is otherwise not on any blood thinners. Denies any chest pain or shortness of breath. EKG completed in ED reveals sinus rhythm with ventricular rate of [address] or T-wave changes Chest x-ray is negative for any consolidations or infiltrates; x-ray of LS-spine does not reveal any fractures CT of the brain and C-spine was completed which did not reveal any acute intrac ranial hemorrhage or any signs of skull fractures or cervical spine fractures Per EMS, her blood sugar was 62 and they subsequently gave her 15 mg of oral glucose. Recheck of blood sugar was found to be 55. She was subsequently given half of an ampule of dextrose. Repeat glucose was 99. Lab work reveals no evidence of leukocytosis, however she does have a lactic acid of 4.4. She was subsequently given a liter bolus of normal saline. Her kidney function has also worsened when compared with her lab work on 11/13. Given that she had a fall with unknown injury and possible loss of consciousness, computed tomography scan of the brain and c-spine was obtained. This revealed no acute findings. Additionally, x-ray of the chest and lumbosacral spine were obtained with no acute findings noted. She was given a dose of ceftriaxone with blood cultures obtained prior. Given the hypoglycemia, progressive weakness, SUSSY, falls, and elevated lactic acid, the patient was admitted to medicine for further management. PT/OT consults placed as well. 11/18/2022 This is a pleasant 81 years old female who presents with fall secondary with hyperglycemia, present on admission, her Amaryl 2 mg on metformin 500 mg by mouth daily were held on admission and currently his sugar is improved and she started to eat therefore we put her on metformin to 250 mg twice daily. Also patient on ceftriaxone for possible UTI, no urine culture sent, we'll check repeat urinalysis however patient denies any urinary symptoms to me this morning, no suprapubic tenderness Janet her normal saline with 130 mL/h down to 50 mL/h. Possible discharge in 24-48 hours if she keeps improvement Objective - Vital Signs Vital signs: Vital Signs Temp 98.5 F 11/18/22 03:47 Pulse 59 L 11/18/22 03:47 Resp 16 11/18/22 03:47 BP 127/65 11/18/22 03:47 Pulse Ox 93 L 11/18/22 03:47 FiO2 Intake & Output 11/17/22 11/18/22 11/18/22 18:59 06:59 18:59 Intake Total 600 1560 180 Balance 600 1560 180 Intake: Intake, IV Titration 1560 Amount Sodium Chloride 0.9% 1, 1560 000 ml @ 50 mls/hr IV . [facility] Rx#:[id number] Oral 600 180 Other: Voiding Method Toilet # Voids 2 5 3 # Bowel Movements 0 - Exam GENERAL: The patient is alert and oriented x3, not in any acute distress. Well developed, well nourished. HEENT: Pupils are round and equally reacting to light. EOMI. No scleral icterus. No conjunctival pallor. Normocephalic, atraumatic. No pharyngeal erythema. No thyromegaly. CARDIOVASCULAR: S1 and S2 present. No murmurs, rubs, or gallops. PULMONARY: Chest is clear to auscultation, no wheezing or crackles. ABDOMEN: Soft, nontender, nondistended, normoactive bowel sounds. No palpable organomegaly. MUSCULOSKELETAL: No joint swelling or deformity. EXTREMITIES: No cyanosis, clubbing, or pedal edema. NEUROLOGICAL: Gross neurological examination did not reveal any focal deficits. SKIN: No rashes. no petechiae. - Labs CBC & Chem 7: 11/18/22 09:57 11/18/22 07:51 Labs: Abnormal Lab Results - Last 24 Hours (Table) 11/17/22 11/17/22 11/18/22 Range/Units 11:41 20:12 07:51 RBC (3.80-5.40) m/uL Hgb (11.4-16.0) gm/dL Hct (34.0-46.0) % Sodium 136 L (137-145) mmol/L Chloride 112 H (98-107) mmol/L POC Glucose (mg/dL) 68 L 162 H (70-110) mg/dL Calcium 8.0 L (8.4-10.2) mg/dL 11/18/22 Range/Units 09:57 RBC 3.47 L (3.80-5.40) m/uL Hgb 10.9 L (11.4-16.0) gm/dL Hct 33.3 L (34.0-46.0) % Sodium (137-145) mmol/L Chloride (98-107) mmol/L POC Glucose (mg/dL) (70-110) mg/dL Calcium (8.4-10.2) mg/dL Microbiology - Last 24 Hours (Table) 11/16/22 16:25 Blood Culture - Preliminary Blood No Growth after 24 hours 11/16/22 16:25 Blood Culture - Preliminary Blood No Growth after 24 hours Assessment and Plan Assessment: 1. Diabetes mellitus with hypoglycemia, present on admission - Discontinue Amaryl and lower the dose of metformin 500 mg and to 250 mg twice daily with close monitoring of glucose 2. Mild acute renal injury; resolved 3. UTI; patient is placed on Rocephin 1 g IV daily; await blood and urine cultures with plans to adjust antibiotics as needed. Currently The patient with no urinary symptoms 4. Lactic acidosis;resolved 5. Weakness/debility/falls; PT/OT is consulted 6. Hypertension; continue with home dose of amlodipine 10 mg daily, hydralazine 10 mg by mouth 3 times a day, lisinopril 40 mg daily and hydrochlorothiazide 25 mg daily 7. Hyperlipidemia; Lipitor 20 mg by mouth daily at bedtime 8. Gastro-esophageal reflux disease; Protonix 40 mg IV twice a day DVT prophylaxis: Heparin GI prophylaxis Pepcid PT/OT: Pending
[2022-11-18 11:38] LABS: Appearance,Urine Clear (Clear); Bilirubin,Urine Negative (Negative); Blood,Urine Negative (Negative); Color,Urine Light Yellow; Glucose,Urine (UA) Negative (Negative); Ketones,Urine Negative (Negative); Leukocyte Esterase,Urine Negative (Negative); Nitrite,Urine Negative (Negative); Protein,Urine Negative (Negative); Specific Gravity,Urine 1.009 (1.001-1.035); Urobilinogen,Urine <2.0 mg/dL (<2.0)
[2022-11-18 19:33] VITALS: RESP 16
[2022-11-18 20:04] LABS: Glucose,Whole Blood 157 mg/dL (70-110)
[2022-11-18] MEDS: ATORVASTATIN 20 MG TAB PO SCH (21:12)
[2022-11-18] MEDS: GABAPENTIN 300 MG CAP PO SCH (21:12)
[2022-11-18] MEDS: HEPARIN SODIUM,PORCINE/PF 5,000 UNIT/0.5 ML SYRINGE SQ SCH (21:13)
[2022-11-19 06:02] LABS: Glucose,Whole Blood 97 mg/dL (70-110)
[2022-11-19] MEDS: metFORMIN 500 MG TAB PO SCH (06:23)
[2022-11-19 07:45] VITALS: BP 166/63; PULSE 67; TEMP 97.7
[2022-11-19] MEDS: PANTOPRAZOLE 40 MG/10 ML VIAL IVP SCH (08:07)
[2022-11-19] MEDS: ASPIRIN 81 MG PO SCH (08:07)
[2022-11-19] MEDS: hydroCHLOROthiazide 25 MG TAB PO SCH (08:07)
[2022-11-19] MEDS: lisinopriL 20 MG TAB PO SCH (08:07)
[2022-11-19] MEDS: hydrALAZINE HCL 10 MG TAB PO SCH (08:08)
[2022-11-19] MEDS: CHOLECALCIFEROL 25 MCG (1000 IU) TABLET PO SCH (08:08)
[2022-11-19] MEDS: amLODIPine 10 MG TAB PO SCH (08:08)
[2022-11-19] MEDS: HEPARIN SODIUM,PORCINE/PF 5,000 UNIT/0.5 ML SYRINGE SQ SCH (08:08)
[2022-11-19] MEDS: ANASTROZOLE 1 MG TAB PO SCH (08:08)
[2022-11-19] MEDS ORDERED: NON FORMULARY DRUG (Alendronate Sodium [Fosamax] 70 MG Tablet) PO SCH (18:43)
--- NOTE | 2022-11-19 22:06 | P.DS ---
Providers Date of admission: 11/16/22 18:43 Attending physician: Jigna Rabago Primary care physician: Thomas Lima Hospital Course: Diagnoses: 1. Diabetes mellitus with hypoglycemia, present on admission - Discontinue Amaryl and lower the dose of metformin 500 mg and to 250 mg daily with close monitoring of glucose. Patient is cleared for discharge 2. Mild acute renal injury; resolved 3. UTI; adequately treated 4. Lactic acidosis;resolved 5. Weakness/debility/falls; improved 6. Hypertension; 7. Hyperlipidemia; 8. Gastro-esophageal reflux disease; Hospital course: This is a pleasant 81 years old female who presents with fall secondary with hyp erglycemia, present on admission, her Amaryl 2 mg on metformin 500 mg by mouth daily were held on admission and currently his sugar is improved and she started to eat therefore we put her on metformin to 250 mg daily, her sugar remains controlled, hemoglobin A1c 5.9. Patient today is back to baseline and she is willing to go home. She denies any specific symptoms. No chest pain or dyspnea. No abdominal or urinary complaints. No vomiting or diarrhea. She tolerates diet. She had UTI on admission that's been adequately treated, currently she does not have any urinary symptoms, repeat urine analysis is normal. Patient is afebrile with no leukocytosis and antibiotics can be safely discontinued. Patient informed to stop femoral and/or dose of metformin 250 by mouth daily and she agreeable. Also she was instructed to monitor her glucose, see discharge instructions. Patient verbalized understanding and acceptance Patient denies any other new symptoms. Problems and management plan were discussed with the patient and he verbalized understanding and acceptance Patient was found stable and can be discharged home in guarded prognosis however he needs follow-up as an outpatient. Patient was instructed to follow up with PCP Dr. Lima within one week and patient agrees Physical exam Gen: patient is a AAOx3, no distress CVS: S1-S2, RRR, no murmur Lungs: B/L CTA, no wheezing Abdomen: soft, no distention, no tenderness, positive bowel sounds Extremity: no leg edema or induration Time spent more than 35 minutes Plan - Discharge Summary Discharge Rx Participant: No New Discharge Prescriptions: Continue Gabapentin [Neurontin] 300 mg PO HS Cholecalciferol [Vitamin D3 (25 Mcg = 1000 Iu)] 50 mcg PO DAILY Atorvastatin [Lipitor] 20 mg PO HS Aspirin EC [Ecotrin Low Dose] 81 mg PO DAILY amLODIPine BESYLATE/BENAZEPRIL [amLODIPine BESYLATE/BENAZEPRIL 10-40 mg] 1 cap PO DAILY Anastrozole [Arimidex] 1 mg PO DAILY Alendronate Sodium [Fosamax] 70 mg PO TU hydrALAZINE HCL [Apresoline] 10 mg PO TID hydroCHLOROthiazide [Hydrodiuril] 25 mg PO DAILY Changed metFORMIN HCL [Glucophage] 250 mg PO DAILY #15 tab Discontinued Glimepiride [Amaryl] 2 mg PO DAILY Sulfamethox-Tmp 800-160Mg [Bactrim DS 800-160 mg] 1 tab PO Q12HR 7 Days #14 tab Discharge Medication List Aspirin EC [Ecotrin Low Dose] 81 mg PO DAILY 01/03/20 [History] Atorvastatin [Lipitor] 20 mg PO HS 01/03/20 [History] Cholecalciferol [Vitamin D3 (25 Mcg = 1000 Iu)] 50 mcg PO DAILY 01/03/20 [History] Gabapentin [Neurontin] 300 mg PO HS 01/03/20 [History] Alendronate Sodium [Fosamax] 70 mg PO TU 11/16/22 [History] Anastrozole [Arimidex] 1 mg PO DAILY 11/16/22 [History] amLODIPine BESYLATE/BENAZEPRIL [amLODIPine BESYLATE/BENAZEPRIL 10-40 mg] 1 cap PO DAILY 11/16/22 [History] hydrALAZINE HCL [Apresoline] 10 mg PO TID 11/16/22 [History] hydroCHLOROthiazide [Hydrodiuril] 25 mg PO DAILY 11/16/22 [History] metFORMIN HCL [Glucophage] 250 mg PO DAILY #15 tab 11/19/22 [Rx] Follow up Appointment(s)/Referral(s): Thomas Lima MD [Primary Care Provider] - 1-2 days Patient Instructions/Handouts: Metformin (By mouth), Heart Healthy Diet (DC), Hypoglycemia in a Person with Diabetes (DC), Fall Prevention for Older Adults (DC), Basic Carbohydrate Counting (DC), Weakness (DC), What to Do if Your Blood Sugar is Low (DC) Activity/Diet/Wound Care/Special Instructions: Heart healthy diet, low carbohydrate diet 1600 kcal per day activity is restricted until you see your doctor We recommend to check your glucose 4 times a day, before each meal and at bedtime, keep the results in a log book and bring it to your doctor on your appointment date; if he GLUCOSE less than 70 or more than 400 then call 911 and come to emergency room Discharge Disposition: HOME SELF-CARE
== END 2022-11-19 10:19 | disposition home or self-care (01) | DRG 638 ==
LOC: EC 15:51 → 3SCARD 18:43
PROVIDERS: ADMIT Hospitalist; ATTEND Hospitalist
DX: E11.649 Type 2 diabetes mellitus with hypoglycemia without coma (principal); E87.1 Hypo-osmolality and hyponatremia; E87.20 Acidosis, unspecified; N39.0 Urinary tract infection, site not specified; Z79.84 Long term (current) use of oral hypoglycemic drugs; E78.5 Hyperlipidemia, unspecified; I10 Essential (primary) hypertension; I25.10 Atherosclerotic heart disease of native coronary artery without angina pectoris; I25.2 Old myocardial infarction; K21.9 Gastro-esophageal reflux disease without esophagitis; R29.6 Repeated falls; N17.9 Acute kidney failure, unspecified; E66.9 Obesity, unspecified; Z68.30 Body mass index [BMI] 30.0-30.9, adult; R53.81 Other malaise; Z91.81 History of falling; Z79.811 Long term (current) use of aromatase inhibitors; Z79.82 Long term (current) use of aspirin; Z79.83 Long term (current) use of bisphosphonates; Z79.899 Other long term (current) drug therapy; Z82.49 Family history of ischemic heart disease and other diseases of the circulatory system; Z83.3 Family history of diabetes mellitus; Z87.891 Personal history of nicotine dependence; Z88.0 Allergy status to penicillin
CPT/HCPCS: 36415; 70450; 71046; 72110; 72125; 80048; 80053; 81001; 81003; 83036; 83605; 83735; 84145; 84484; 85025; 85610; 85730; 87040; 87636; 93005; 96361; 96374; 96375; 99285

== ENCOUNTER 2023-06-09 14:09 | Emergency (ER) | payer BC ==
[2023-06-09 14:25] VITALS: RESP 18
[2023-06-09] MEDS ORDERED: hydrALAZINE HCL 20 MG/ML 1 ML VIAL IVP STA ×2 (16:04→18:33)
--- NOTE | 2023-06-09 16:05 | ED ---
General Adult HPI - General Chief complaint: Recheck/Abnormal Lab/Rx Stated complaint: hypertension Source: patient, EMS, RN notes reviewed Mode of arrival: EMS Limitations: no limitations - History of Present Illness Initial comments: This is a pleasant 82-year-old female with a history of hypertension, previously was on triple therapy. Sounds like the patient had an illness and was seen at [facility] in the spring. At that point patient was pull off all of her medications because she had been running low on her blood pressure. Patient was sent home on no blood pressure medicines. Patient has had subsequent follow-ups with specialist and her blood pressure is been running high. Patient eventually admitted to her primary care appointment today. Systolic blood pressure was in excess of 220. Patient was sent here for evaluation. Patient is asymptomatic. No headache. No vision or hearing changes. No slurred speech. No neurologic deficits. No chest pain. No rebound urination. No abdominal pain. No headache, no fever or chills, no changes in vision or hearing, no sore throat or difficulty with speech, no neck pain, no chest pain or shortness of breath, no abdominal pain, no nausea or vomiting, no changes in urination or bowel movements, no numbness or tingling, no extremity pain, no skin rashes or lesions. Past medical, surgical, social, and family history reviewed. - Related Data Home Medications Medication Instructions Recorded Confirmed Aspirin EC [Ecotrin Low Dose] 81 mg PO DAILY 01/03/20 12/04/22 Atorvastatin [Lipitor] 20 mg PO HS 01/03/20 12/04/22 Cholecalciferol [Vitamin D3 (25 50 mcg PO DAILY 01/03/20 12/04/22 Mcg = 1000 Iu)] Gabapentin [Neurontin] 300 mg PO HS 01/03/20 12/04/22 Alendronate Sodium [Fosamax] 70 mg PO TU 11/16/22 12/04/22 Anastrozole [Arimidex] 1 mg PO DAILY 11/16/22 12/04/22 amLODIPine BESYLATE/BENAZEPRIL 1 cap PO DAILY 11/16/22 12/04/22 [amLODIPine BESYLATE/BENAZEPRIL 10-40 mg] hydrALAZINE HCL [Apresoline] 10 mg PO TID 11/16/22 12/04/22 hydroCHLOROthiazide [Hydrodiuril] 25 mg PO DAILY 11/16/22 12/04/22 Cyanocobalamin [Vitamin B-12] 500 mcg PO DAILY 12/04/22 12/04/22 metFORMIN HCL [Glucophage] 250 mg PO BID 12/04/22 12/04/22 Previous Rx's Medication Instructions Recorded Ondansetron Odt [Zofran ODT] 4 mg PO Q8HR PRN #10 tab 12/03/22 metroNIDAZOLE [Flagyl] 500 mg PO TID #21 tab 12/03/22 Acetaminophen Tab [Tylenol] 650 mg PO Q6HR PRN tab 12/05/22 Pantoprazole Sodium [Protonix] 40 mg PO 14 #14 tab 12/05/22 cefUROXime axetiL [Ceftin] 500 mg PO BID 7 Days #14 tab 12/05/22 hydrALAZINE HCL [Apresoline] 10 mg PO TID #45 tablet 06/09/23 hydroCHLOROthiazide 12.5 mg PO DAILY #15 cap 06/09/23 Allergies Allergy/AdvReac Type Severity Reaction Status Date / Time Penicillins Allergy "Passes Verified 06/09/23 14:25 out" Review of Systems ROS Statement: Those systems with pertinent positive or pertinent negative responses have been documented in the HPI. ROS Other: All systems not noted in ROS Statement are negative. Past Medical History Past Medical History: Diabetes Mellitus, Hypertension, Myocardial Infarction ([place]) Additional Past Medical History / Comment(s): 1 functioning kidney Last Myocardial Infarction Date:: 1989 History of Any Multi-Drug Resistant Organisms: None Reported Past Surgical History: Appendectomy, Heart Catheterization With Stent, Tonsillectomy, Tubal Ligation Past Anesthesia/Blood Transfusion Reactions: No Reported Reaction Date of Last Stent Placement:: 1989 Past Psychological History: No Psychological Hx Reported Smoking Status: Former smoker Past Alcohol Use History: None Reported Past Drug Use History: None Reported - Past Family History Mother Family Medical History: Diabetes Mellitus, Myocardial Infarction ([place]) Father Family Medical History: Diabetes Mellitus, Myocardial Infarction ([place]) General Exam - General Exam Comments Initial Comments: She does not appear to be ill or toxic. Cranial nerves II through XII grossly intact. Blood pressure is noted to be elevated with a systolic blood pressure in excess of 220. Alert and oriented 4. Limitations: no limitations General appearance: alert, in no apparent distress Head exam: Present: atraumatic, normocephalic, normal inspection Eye exam: Present: normal appearance, PERRL, EOMI. Absent: scleral icterus, conjunctival injection, periorbital swelling, periorbital tenderness ENT exam: Present: normal exam, normal oropharynx, mucous membranes moist, normal external ear exam Neck exam: Present: normal inspection. Absent: tenderness, meningismus, lymphadenopathy Respiratory exam: Present: normal lung sounds bilaterally. Absent: respiratory distress, wheezes, rales, rhonchi, stridor Cardiovascular Exam: Present: regular rate, normal rhythm, normal heart sounds. Absent: systolic murmur, diastolic murmur, rubs, gallop, clicks GI/Abdominal exam: Present: soft, normal bowel sounds. Absent: distended, tenderness, guarding, rebound, rigid Extremities exam: Present: normal inspection, full ROM, normal capillary refill. Absent: tenderness, pedal edema, joint swelling, calf tenderness Back exam: Present: normal inspection Neurological exam: Present: alert, oriented X3, CN II-XII intact Psychiatric exam: Present: normal affect, normal mood Skin exam: Present: warm, dry, intact, normal color. Absent: rash Course Vital Signs 06/09/23 06/09/23 06/09/23 14:23 15:25 16:59 Temperature 97.2 F L Pulse Rate 69 68 61 Respiratory 18 18 18 Rate Blood Pressure 220/71 229/79 217/72 O2 Sat by Pulse 99 Oximetry EKG Findings - EKG Comments: EKG Findings:: EKG independently interpreted by me at 1525 and reviewed by the ED attending physician reveals sinus rhythm with a rate of 65, nonspecific T- wave abnormalities, left axis deviation. RSR in V1 and V2. Minimally poor R- wave aggression. When compared to the previous study from 11/17/2022 there is no significant change. Patient's intervals are normal. Medical Decision Making - Medical Decision Making Was pt. sent in by a medical professional or institution? @ -Yes, sent in by primary care physician, Dr. Lima Did you speak to anyone other than the patient for history? @ -Family member, daughter Did you review nursing and triage notes? @ -Agree Were old charts reviewed? @ -Previous charts reviewed. Differential Diagnosis? @ -Differential diagnosis includes but not limited to: Uncontrolled hypertension, asymptomatic hypertension, accelerated hypertension, does not appear to be consistent with hypertensive emergency. No evidence of end organ damage. EKG interpreted by me (3pts min.)? @ -see interpretation, independently interpreted by me. X-rays interpreted by me (1pt min.)? @ -[none] CT interpreted by me (1pt min.)? @ -[none] U/S interpreted by me (1pt. min.)? @ -[none] What testing was considered but not performed? (CT, X-rays, U/S, labs)? Why? @Chest x-ray was considered, however, I did not feel this would change disposition or treatment of this patient. What meds were considered but not given? Why? @ -Amlodipine was considered. However after consideration this was held in favor of hydralazine. Did you discuss the management of the patient with other professionals? @ -The case was discussed in detail with ED attending physician. Presentation, findings, treatment plan discussed in detail. Did you reconcile home meds? @ -Reviewed Was smoking cessation discussed for >3mins.? @ -[none] Was critical care preformed (if so, how long)? @ -[none] Were there social determinants of health that impacted care today? How? (Homelessness, low income, unemployed, alcoholism, drug addiction, transportation, low edu. Level, literacy, decrease access to med. care, penitentiary, rehab)? @ -None noted Was there de-escalation of care discussed even if they declined? (Discuss DNR or withdrawal of care, Hospice)? @ -[Discuss DNR or withdrawal of care, Hospice?] What co-morbidities impacted this encounter? (DM, HTN, Smoking, COPD, CAD, Cancer, CVA, Hep., AIDS, mental health diagnosis, sleep apnea, morbid obesity)? @ -Hypertension Was patient admitted / discharged? @ -Discharge, stable Undiagnosed new problem with uncertain prognosis? @ -[none] Drug Therapy requiring intensive monitoring for toxicity (Heparin, Nitro, Insulin, Cardizem)? @ -[none] Were any procedures done? @ -[none] Diagnosis/symptom? @ -Uncontrolled chronic hypertension Acute, or Chronic, or Acute on Chronic? @ -Chronic Uncomplicated (without systemic symptoms) or Complicated (systemic symptoms)? @ -Uncomplicated, asymptomatic Side effects of treatment? @ -[none] Exacerbation, Progression, or Severe Exacerbation] @ -[no] Poses a threat to life or bodily function? @ -In the long-term could pose threat Patient given hydralazine 10 mg IV push. We'll likely need to restart the patient on blood pressure medication as she previously was on triple therapy. Patient previously was on hydrochlorothiazide, hydralazine, and amlodipine. We will restart the patient on hydralazine 10 mg 3 times a day and low-dose hydrochlorothiazide at 12.5 mg daily. We'll have the patient follow-up with the primary care physician within the next 1-2 days. Patient and family voiced understanding. Patient was told to return to the ER for any signs or symptoms worsen. Told to return immediately if any other problems arise. All questions answered. Treatment plan discussed. Patient in agreement Every effort has been made to ensure accuracy of this dictation. However, due to the limitations of electronic medical records and dictation devices, errors in charting still occur. - Lab Data Result diagrams: 06/09/23 16:50 06/09/23 16:50 Lab Results 06/09/23 06/09/23 06/09/23 Range/Units 16:50 16:50 16:50 WBC 8.7 (3.8-10.6) k/uL RBC 3.68 L (3.80-5.40) m/uL Hgb 12.1 (11.4-16.0) gm/dL Hct 36.0 (34.0-46.0) % MCV 97.9 (80.0-100.0) fL MCH 32.8 (25.0-35.0) pg MCHC 33.5 (31.0-37.0) g/dL RDW 12.7 (11.5-15.5) % Plt Count 140 L (150-450) k/uL MPV 9.8 Neutrophils % 67 % Lymphocytes % 26 % Monocytes % 4 % Eosinophils % 2 % Basophils % 1 % Neutrophils # 5.8 (1.3-7.7) k/uL Lymphocytes # 2.2 (1.0-4.8) k/uL Monocytes # 0.4 (0-1.0) k/uL Eosinophils # 0.2 (0-0.7) k/uL Basophils # 0.1 (0-0.2) k/uL Sodium (137-145) mmol/L Potassium (3.5-5.1) mmol/L Chloride (98-107) mmol/L Carbon Dioxide (22-30) mmol/L Anion Gap mmol/L BUN (7-17) mg/dL Creatinine (0.52-1.04) mg/dL Est GFR (CKD-EPI)AfAm (>60 ml/min/1.73 sqM) Est GFR (CKD-EPI)NonAf (>60 ml/min/1.73 sqM) Glucose (74-99) mg/dL Calcium (8.4-10.2) mg/dL Magnesium 1.8 (1.6-2.3) mg/dL Troponin I <0.012 (0.000-0.034) ng/mL 06/09/23 Range/Units 16:50 WBC (3.8-10.6) k/uL RBC (3.80-5.40) m/uL Hgb (11.4-16.0) gm/dL Hct (34.0-46.0) % MCV (80.0-100.0) fL MCH (25.0-35.0) pg MCHC (31.0-37.0) g/dL RDW (11.5-15.5) % Plt Count (150-450) k/uL MPV Neutrophils % % Lymphocytes % % Monocytes % % Eosinophils % % Basophils % % Neutrophils # (1.3-7.7) k/uL Lymphocytes # (1.0-4.8) k/uL Monocytes # (0-1.0) k/uL Eosinophils # (0-0.7) k/uL Basophils # (0-0.2) k/uL Sodium 137 (137-145) mmol/L Potassium 4.2 (3.5-5.1) mmol/L Chloride 106 (98-107) mmol/L Carbon Dioxide 23 (22-30) mmol/L Anion Gap 8 mmol/L BUN 20 H (7-17) mg/dL Creatinine 0.86 (0.52-1.04) mg/dL Est GFR (CKD-EPI)AfAm 72 (>60 ml/min/1.73 sqM) Est GFR (CKD-EPI)NonAf 63 (>60 ml/min/1.73 sqM) Glucose 157 H (74-99) mg/dL Calcium 8.7 (8.4-10.2) mg/dL Magnesium (1.6-2.3) mg/dL Troponin I (0.000-0.034) ng/mL Disposition Clinical Impression: Hypertension, poor control Disposition: HOME SELF-CARE Condition: Good Instructions (If sedation given, give patient instructions): Hypertension (ED) Additional Instructions: Call your regular physician tomorrow to schedule follow-up appointment within the next 1-2 days. Take the blood pressure medications as directed. Limit salt in your diet. Follow-up with your regular physician as directed. Return to the ER immediately if any symptoms worsen, new symptoms arise, or any other problems develop. Prescriptions: hydrALAZINE HCL [Apresoline] 10 mg PO TID #45 tablet hydroCHLOROthiazide 12.5 mg PO DAILY #15 cap Is patient prescribed a controlled substance at d/c from ED?: No When asked, does pt state using other controlled substances?: No Referrals: Thomas Lima MD [Primary Care Provider] - 1-2 days Time of Disposition: 18:36
[2023-06-09 17:14] LABS: Basophils # (A) 0.1 k/uL (0-0.2); Basophils % (A) 1 %; Eosinophils # (A) 0.2 k/uL (0-0.7); Eosinophils % (A) 2 %; HGB 12.1 gm/dL (11.4-16.0); Lymphocytes # (A) 2.2 k/uL (1.0-4.8); Lymphocytes % (A) 26 %; MCH 32.8 pg (25.0-35.0); MCHC 33.5 g/dL (31.0-37.0); MCV 97.9 fL (80.0-100.0); Mean Platelet Volume 9.8; Monocytes # (A) 0.4 k/uL (0-1.0); Monocytes % (A) 4 %; Neutrophils # (A) 5.8 k/uL (1.3-7.7); Neutrophils % (A) 67 %; Platelet Count 140 k/uL (150-450); RBC 3.68 m/uL (3.80-5.40); RDW 12.7 % (11.5-15.5); WBC 8.7 k/uL (3.8-10.6)
[2023-06-09 18:22] LABS: African American GFR (CKD) 72 (>60 ml/min/1.73 sqM); Anion Gap 8 mmol/L; Blood Urea Nitrogen 20 mg/dL (7-17); Calcium 8.7 mg/dL (8.4-10.2); Carbon Dioxide 23 mmol/L (22-30); Chloride 106 mmol/L (98-107); Glucose 157 mg/dL (74-99); Non-African American GFR(CKD) 63 (>60 ml/min/1.73 sqM); Potassium 4.2 mmol/L (3.5-5.1); Sodium 137 mmol/L (137-145)
[2023-06-09 19:52] VITALS: BP 178/62; PULSE 88; TEMP 98.4
== END 2023-06-09 20:02 | disposition home or self-care (01) ==
LOC: EC 14:09
DX: I10 Essential (primary) hypertension (principal); E11.9 Type 2 diabetes mellitus without complications; I25.2 Old myocardial infarction; Z87.891 Personal history of nicotine dependence; Z88.0 Allergy status to penicillin; Z79.82 Long term (current) use of aspirin; Z79.84 Long term (current) use of oral hypoglycemic drugs; Z79.899 Other long term (current) drug therapy
CPT/HCPCS: 36415; 93005; 80048; 83735; 84484; 85025; 99285; 96374; 96376; J0360

== ENCOUNTER 2023-09-08 15:29 | Emergency (ER) | payer BC ==
--- NOTE | 2023-09-08 17:12 | ED ---
General Adult HPI - General Chief complaint: Wound/Laceration Stated complaint: right big toe pain Time Seen by Provider: 09/08/23 16:10 Source: patient, RN notes reviewed Mode of arrival: wheelchair Limitations: no limitations - History of Present Illness Initial comments: 82-year-old female presents emergency department chief complaint of right first toe wound. She states that his been there for around 2 weeks. She was evaluated at urgent care on Friday and was started on antibiotics and topical treatment. She states the wound seems to be getting worse. She does report improvement in the pain. Denies fever, chills. Past medical history includes diabetes, hypertension. - Related Data Home Medications Medication Instructions Recorded Confirmed Aspirin EC [Ecotrin Low Dose] 81 mg PO DAILY 01/03/20 12/04/22 Atorvastatin [Lipitor] 20 mg PO HS 01/03/20 12/04/22 Cholecalciferol [Vitamin D3 (25 50 mcg PO DAILY 01/03/20 12/04/22 Mcg = 1000 Iu)] Gabapentin [Neurontin] 300 mg PO HS 01/03/20 12/04/22 Alendronate Sodium [Fosamax] 70 mg PO TU 11/16/22 12/04/22 Anastrozole [Arimidex] 1 mg PO DAILY 11/16/22 12/04/22 amLODIPine BESYLATE/BENAZEPRIL 1 cap PO DAILY 11/16/22 12/04/22 [amLODIPine BESYLATE/BENAZEPRIL 10-40 mg] hydrALAZINE HCL [Apresoline] 10 mg PO TID 11/16/22 12/04/22 hydroCHLOROthiazide [Hydrodiuril] 25 mg PO DAILY 11/16/22 12/04/22 Cyanocobalamin [Vitamin B-12] 500 mcg PO DAILY 12/04/22 12/04/22 metFORMIN HCL [Glucophage] 250 mg PO BID 12/04/22 12/04/22 Previous Rx's Medication Instructions Recorded Ondansetron Odt [Zofran ODT] 4 mg PO Q8HR PRN #10 tab 12/03/22 metroNIDAZOLE [Flagyl] 500 mg PO TID #21 tab 12/03/22 Acetaminophen Tab [Tylenol] 650 mg PO Q6HR PRN tab 12/05/22 Pantoprazole Sodium [Protonix] 40 mg PO 14 #14 tab 12/05/22 cefUROXime axetiL [Ceftin] 500 mg PO BID 7 Days #14 tab 12/05/22 hydrALAZINE HCL [Apresoline] 10 mg PO TID #45 tablet 06/09/23 hydroCHLOROthiazide 12.5 mg PO DAILY #15 cap 06/09/23 Allergies Allergy/AdvReac Type Severity Reaction Status Date / Time Penicillins Allergy "Passes Verified 09/08/23 15:52 out" Review of Systems ROS Statement: Those systems with pertinent positive or pertinent negative responses have been documented in the HPI. ROS Other: All systems not noted in ROS Statement are negative. Past Medical History Past Medical History: Diabetes Mellitus, Hypertension, Myocardial Infarction ([place]) Additional Past Medical History / Comment(s): 1 functioning kidney Last Myocardial Infarction Date:: 1989 History of Any Multi-Drug Resistant Organisms: None Reported Past Surgical History: Appendectomy, Heart Catheterization With Stent, Tonsillectomy, Tubal Ligation Past Anesthesia/Blood Transfusion Reactions: No Reported Reaction Date of Last Stent Placement:: 1989 Past Psychological History: No Psychological Hx Reported Smoking Status: Former smoker Past Alcohol Use History: None Reported Past Drug Use History: None Reported - Past Family History Mother Family Medical History: Diabetes Mellitus, Myocardial Infarction ([place]) Father Family Medical History: Diabetes Mellitus, Myocardial Infarction ([place]) General Exam Limitations: no limitations General appearance: alert, in no apparent distress Head exam: Present: atraumatic, normocephalic, normal inspection Eye exam: Present: normal appearance, PERRL, EOMI. Absent: scleral icterus, conjunctival injection, periorbital swelling Respiratory exam: Present: normal lung sounds bilaterally. Absent: respiratory distress, wheezes, rales, rhonchi, stridor Cardiovascular Exam: Present: regular rate, normal rhythm, normal heart sounds. Absent: systolic murmur, diastolic murmur, rubs, gallop, clicks GI/Abdominal exam: Present: soft, normal bowel sounds. Absent: distended, tenderness, guarding, rebound, rigid Extremities exam: Present: full ROM, tenderness (Right first toe), other (DP and PT pulses 1+, equal bilaterally) Neurological exam: Present: alert, oriented X3 Psychiatric exam: Present: normal affect, normal mood Skin exam: Present: warm, dry, normal color, other (Ulcer to right first toe, dorsal aspect). Absent: intact, rash Course Vital Signs 09/08/23 09/08/23 15:49 19:03 Temperature 98.3 F 98.9 F Pulse Rate 59 L 70 Respiratory 18 16 Rate Blood Pressure 112/69 115/71 O2 Sat by Pulse 97 97 Oximetry Medical Decision Making - Medical Decision Making Was pt. sent in by a medical professional or institution (, MARÍA, STUDENT MINISTRIES DIRECTOR, urgent care, hospital, or [facility]...) When possible be specific @ -No Did you speak to anyone other than the patient for history (EMS, parent, family, police, friend...)? What history was obtained from this source @ -No Did you review nursing and triage notes (agree or disagree)? Why? @ -I reviewed and agree with nursing and triage notes Were old charts reviewed (outside hosp., previous admission, EMS record, old EKG, old radiological studies, urgent care reports/EKG's, [facility] records)? Report findings @ -No old charts were reviewed Differential Diagnosis (chest pain, altered mental status, abdominal pain women, abdominal pain men, vaginal bleeding, weakness, fever, dyspnea, syncope, headache, dizziness, GI bleed, back pain, seizure, CVA, palpatations, mental health, musculoskeletal)? @ -Differential Musculoskeletal Muscular strain, contusion, ligament sprain, fracture, arthritis, septic arthritis, bursitis, cellulitis, muscle spasm, nerve compression, DVT, arterial occlusion, herpes zoster, electrolyte abnormality, tumor.... This is not meant to be in all inclusive list EKG interpreted by me (3pts min.). @ -None X-rays interpreted by me (1pt min.). @ -X-ray toes shows no evidence of acute fracture or osteomyelitis CT interpreted by me (1pt min.). @ -None done U/S interpreted by me (1pt. min.). @ -None done What testing was considered but not performed or refused? (CT, X-rays, U/S, labs)? Why? @ -None What meds were considered but not given or refused? Why? @ -None Did you discuss the management of the patient with other professionals (professionals i.e. MARÍA Freeman, STUDENT MINISTRIES DIRECTOR, lab, RT, psych nurse, social insurance analyst, rag sorter, teacher, sea air land officer, case resource manager)? Give summary @ -No Was smoking cessation discussed for >3mins.? @ -No Was critical care preformed (if so, how long)? @ -No Were there social determinants of health that impacted care today? How? (Homelessness, low income, unemployed, alcoholism, drug addiction, transportation, low edu. Level, literacy, decrease access to med. care, residential, rehab)? @ -No Was there de-escalation of care discussed even if they declined (Discuss DNR or withdrawal of care, Hospice)? DNR status @ -No What co-morbidities impacted this encounter? (DM, HTN, Smoking, COPD, CAD, Cancer, CVA, ARF, Chemo, Hep., AIDS, mental health diagnosis, sleep apnea, morbid obesity)? @ -None Was patient admitted / discharged? Hospital course, mention meds given and route, prescriptions, significant lab abnormalities, going to OR and other pertinent info. @ -Discharged. Patient presented to emergency department chief complaint of toe ulcer 2 weeks. Patient has been on antibiotics for this. She has an appointment with podiatry in around 2 weeks. Patient states that she feels that the toe pain is improving but the ulcer is not. This wound appears chronic and vascular in nature. There does not appear to be signs of acute infection including erythema, drainage. X-ray obtained shows no evidence of osteomyelitis. She'll be discharged home with wound care follow-up and podiatry appointment as scheduled. Patient agreeable and understanding. Patient stable at time of discharge. Case discussed with Dr. Swenson. Undiagnosed new problem with uncertain prognosis? @ -No Drug Therapy requiring intensive monitoring for toxicity (Heparin, Nitro, Insulin, Cardizem)? @ -No Were any procedures done? @ -No Diagnosis/symptom? @ -Ulcer first toe Acute, or Chronic, or Acute on Chronic? @ -Acute on chronic Uncomplicated (without systemic symptoms) or Complicated (systemic symptoms)? @ -Uncomplicated Side effects of treatment? @ -No Exacerbation, Progression, or Severe Exacerbation? @ -No Poses a threat to life or bodily function? How? (Chest pain, [place], [place], pneumonia, PE, COPD, DKA, ARF, appy, cholecystitis, CVA, Diverticulitis, Homicidal, Suicidal, threat to staff... and all critical care pts) @ -No Disposition Clinical Impression: Foot ulcer Disposition: HOME SELF-CARE Condition: Stable Instructions (If sedation given, give patient instructions): Chronic Wound Care (ED) Additional Instructions: Continue taking antibiotics as prescribed. Follow up with your primary care provider and wound care. Return to the emergency department for new or worsening symptoms. Is patient prescribed a controlled substance at d/c from ED?: No Referrals: Thomas Lima MD [Primary Care Provider] - 1-2 days [facility] [NON-STAFF] - 1-2 days Lázaro Preciado DO [Doctor of Osteopathic Medicine] - 1-2 days
--- NOTE | 2023-09-08 17:45 | XR ---
EXAMINATION TYPE: XR toes RT DATE OF EXAM: 09/08/2023 5:37 PM CLINICAL INDICATION:Female, 82 years old with history of ulcer; [facility] COMPARISON: None TECHNIQUE: XR toes RT examined in the AP, oblique, and lateral projections. FINDINGS: No evidence of any acute osseous pathology. No evidence of soft tissue swelling. Joints are preserve d. No evidence for osseous erosion. Soft tissue swelling around the great toe. IMPRESSION: Soft tissue swelling of the first digit without evidence of fracture or osteomyelitis.
[2023-09-08 19:08] VITALS: BP 115/71; PULSE 70; RESP 16; TEMP 98.9
== END 2023-09-08 19:14 | disposition home or self-care (01) ==
LOC: EC 15:29
DX: L97.519 Non-pressure chronic ulcer of other part of right foot with unspecified severity (principal); I10 Essential (primary) hypertension; I25.2 Old myocardial infarction; E11.621 Type 2 diabetes mellitus with foot ulcer; Z87.891 Personal history of nicotine dependence; Z88.0 Allergy status to penicillin; Z79.82 Long term (current) use of aspirin; Z79.84 Long term (current) use of oral hypoglycemic drugs; Z79.899 Other long term (current) drug therapy
CPT/HCPCS: 99283

== ENCOUNTER → 2023-09-24 | Outpatient (CLI) | payer BC ==
[2023-09-24 13:51] LABS: African American GFR (CKD) 49 (>60 ml/min/1.73 sqM); Blood Urea Nitrogen 27 mg/dL (7-17); Non-African American GFR(CKD) 43 (>60 ml/min/1.73 sqM)
== END | disposition home or self-care (01) ==
LOC: RADCTMAIN 12:46
PROVIDERS: ATTEND Surgery
DX: I77.1 Stricture of artery (principal); I70.92 Chronic total occlusion of artery of the extremities; Z53.09 Procedure and treatment not carried out because of other contraindication
CPT/HCPCS: 82565; 84520

== ENCOUNTER 2023-10-02 11:36 | Inpatient (IN) | payer BC ==
--- NOTE | 2023-10-02 11:58 | ED ---
Recheck HPI - General Source: patient, family, RN notes reviewed Mode of arrival: wheelchair Limitations: no limitations <Darío Rodriguez - Last Filed: 10/02/23 11:57> <Rogelio Spangler - Last Filed: 10/02/23 16:48> - General Chief Complaint: Recheck/Abnormal Lab/Rx Stated Complaint: High BP Time Seen by Provider: 10/02/23 11:57 - History of Present Illness Initial Comments: 82-year-old female presents emergency Department from wound care for evaluation of hypertension. Patient was sent down to [facility] from because her blood pressure was over 200 systolic. Patient denies any current symptoms. Patient does have a history of hypertension. (Darío Rodriguez) This is an 82-year-old female presents emergency department from the wound center. According to the physician upstairs Dr. castañeda wanted the patient admitted and have a consult for vascular surgery. He also wanted a CT angiogram of the extremities. Patient states she has no symptoms other than the foot wound she is not complaining of any chest pain difficulty breathing first breath per patient had no recent fever chills or cough. Patient has no abdominal pain is been no nausea vomiting. Patient denies headache patient denies numbness weakness. (Rogelio Spangler) - Related Data Home Medications Medication Instructions Recorded Confirmed Aspirin EC [Ecotrin Low Dose] 81 mg PO DAILY 01/03/20 12/04/22 Atorvastatin [Lipitor] 20 mg PO HS 01/03/20 12/04/22 Cholecalciferol [Vitamin D3 (25 50 mcg PO DAILY 01/03/20 12/04/22 Mcg = 1000 Iu)] Gabapentin [Neurontin] 300 mg PO HS 01/03/20 12/04/22 Alendronate Sodium [Fosamax] 70 mg PO TU 11/16/22 12/04/22 Anastrozole [Arimidex] 1 mg PO DAILY 11/16/22 12/04/22 amLODIPine BESYLATE/BENAZEPRIL 1 cap PO DAILY 11/16/22 12/04/22 [amLODIPine BESYLATE/BENAZEPRIL 10-40 mg] hydrALAZINE HCL [Apresoline] 10 mg PO TID 11/16/22 12/04/22 hydroCHLOROthiazide [Hydrodiuril] 25 mg PO DAILY 11/16/22 12/04/22 Cyanocobalamin [Vitamin B-12] 500 mcg PO DAILY 12/04/22 12/04/22 metFORMIN HCL [Glucophage] 250 mg PO BID 12/04/22 12/04/22 Previous Rx's Medication Instructions Recorded Ondansetron Odt [Zofran ODT] 4 mg PO Q8HR PRN #10 tab 12/03/22 metroNIDAZOLE [Flagyl] 500 mg PO TID #21 tab 12/03/22 Acetaminophen Tab [Tylenol] 650 mg PO Q6HR PRN tab 12/05/22 Pantoprazole Sodium [Protonix] 40 mg PO 14 #14 tab 12/05/22 cefUROXime axetiL [Ceftin] 500 mg PO BID 7 Days #14 tab 12/05/22 hydrALAZINE HCL [Apresoline] 10 mg PO TID #45 tablet 06/09/23 hydroCHLOROthiazide 12.5 mg PO DAILY #15 cap 06/09/23 Allergies Allergy/AdvReac Type Severity Reaction Status Date / Time Penicillins Allergy "Passes Verified 10/02/23 11:43 out" Review of Systems ROS Other: All systems not noted in ROS Statement are negative. <Darío Rodriguez - Last Filed: 10/02/23 11:57> ROS Other: All systems not noted in ROS Statement are negative. <Rogelio Spangler - Last Filed: 10/02/23 16:48> ROS Statement: Those systems with pertinent positive or pertinent negative responses have been documented in the HPI. Past Medical History Past Medical History: Diabetes Mellitus, Hypertension, Myocardial Infarction (OR) Additional Past Medical History / Comment(s): 1 functioning kidney Last Myocardial Infarction Date:: 1989 History of Any Multi-Drug Resistant Organisms: None Reported Past Surgical History: Appendectomy, Heart Catheterization With Stent, Tonsillectomy, Tubal Ligation Past Anesthesia/Blood Transfusion Reactions: No Reported Reaction Date of Last Stent Placement:: 1989 Past Psychological History: No Psychological Hx Reported Smoking Status: Former smoker Past Alcohol Use History: None Reported Past Drug Use History: None Reported - Past Family History Mother Family Medical History: Diabetes Mellitus, Myocardial Infarction (OR) Father Family Medical History: Diabetes Mellitus, Myocardial Infarction (OR) <Darío Rodriguez - Last Filed: 10/02/23 11:57> General Exam Limitations: no limitations <Darío Rodriguez - Last Filed: 10/02/23 11:57> <Rogelio Spangler - Last Filed: 10/02/23 16:48> - General Exam Comments Initial Comments: Visual Physical Exam Vital signs reviewed General: Well-appearing, nontoxic, no acute distress. Head: Normocephalic, atraumatic Eyes: PERRLA, EOMI ENT: Airway patent Chest: Nonlabored breathing Skin: No visual rash, normal skin tone Neuro: Alert and oriented 3 Musculoskeletal: No gross abnormalities (Darío Rodriguez) GENERAL: Patient is well-developed and well-nourished. Patient is nontoxic and well- hydrated and is in no acute distress. ENT: Neck is soft and supple. No significant lymphadenopathy is noted. Oropharynx is clear. Moist mucous membranes. Neck has full range of motion without eliciting any pain. EYES: The sclera were anicteric and conjunctiva were pink and moist. Extraocular movements were intact and pupils were equal round and reactive to light. Eyelids were unremarkable. PULMONARY: Unlabored respirations. Good breath sounds bilaterally. No audible rales rhonchi or wheezing was noted. CARDIOVASCULAR: There is a regular rate and rhythm without any murmurs gallops or rubs. ABDOMEN: Soft and nontender with normal bowel sounds. SKIN: Skin is clear with no lesions or rashes and otherwise unremarkable. NEUROLOGIC: Patient is alert and oriented x3. Cranial nerves II through XII are grossly intact. Motor and sensory are also intact. Normal speech, volume and content. Symmetrical smile. MUSCULOSKELETAL: Normal extremities with adequate strength and full range of motion. Patient's right big toe has an area of necrosis on the medial aspect in the bases very erythematous. Patient first toe is extremely tender LYMPHATICS: No significant lymphadenopathy is noted PSYCHIATRIC: Normal psychiatric evaluation. (Rogelio Spangler) Course Vital Signs 10/02/23 10/02/23 10/02/23 11:43 13:50 14:45 Temperature 98.4 F Pulse Rate 68 62 60 Respiratory 18 18 18 Rate Blood Pressure 179/65 180/64 155/51 O2 Sat by Pulse 98 97 96 Oximetry Medical Decision Making <Darío Rodriguez - Last Filed: 10/02/23 11:57> - Lab Data Result diagrams: 10/02/23 14:29 10/02/23 14:29 <Rogelio Spangler - Last Filed: 10/02/23 16:48> - Medical Decision Making I completed the quick note portion of this chart signed Darío Rodriguez PA-C (Darío Rodriguez) Was pt. sent in by a medical professional or institution (MARÍA Freeman, TOUR DRIVER, urgent care, hospital, or shelter...) When possible be specific @ -Dr. castañeda sent the patient into the emergency department Did you speak to anyone other than the patient for history (EMS, parent, family, police, friend...)? What history was obtained from this source @ -I spoke with Dr. Castañeda and he gave most of the history Did you review nursing and triage notes (agree or disagree)? Why? @ -Yes I reviewed nursing and triage notes Were old charts reviewed (outside hosp., previous admission, EMS record, old EKG, old radiological studies, urgent care reports/EKG's, shelter records)? Report findings @ -I reviewed prior labs prior charts on this patient Differential Diagnosis (chest pain, altered mental status, abdominal pain women, abdominal pain men, vaginal bleeding, weakness, fever, dyspnea, syncope, headache, dizziness, GI bleed, back pain, seizure, CVA, palpatations, mental health, musculoskeletal)? @ -Peripheral vascular disease, hypertension, and toes, this is not all inclusive list EKG interpreted by me (3pts min.). @ -As above X-rays interpreted by me (1pt min.). @ -X-ray of the foot shows no acute abnormality CT interpreted by me (1pt min.). @ -None done U/S interpreted by me (1pt. min.). @ -None done What testing was considered but not performed or refused? (CT, X-rays, U/S, labs)? Why? @ -None What meds were considered but not given or refused? Why? @ -None Did you discuss the management of the patient with other professionals (professionals i.e. MARÍA Freeman, TOUR DRIVER, lab, RT, psych nurse, social services manager, workforce investment act career manager, teacher, sanitation officer, rifle case repairer)? Give summary @ -I spoke with a prescription hospice agreed to admit the patient minute the patient I consulted vascular surgery Was smoking cessation discussed for >3mins.? @ -No Was critical care preformed (if so, how long)? @ -No Were there social determinants of health that impacted care today? How? (Homelessness, low income, unemployed, alcoholism, drug addiction, transportatio n, low edu. Level, literacy, decrease access to med. care, fpc, rehab)? @ -No Was there de-escalation of care discussed even if they declined (Discuss DNR or withdrawal of care, Hospice)? DNR status @ -No What co-morbidities impacted this encounter? (DM, HTN, Smoking, COPD, CAD, Cancer, CVA, ARF, Chemo, Hep., AIDS, mental health diagnosis, sleep apnea, morbid obesity)? @ -None Was patient admitted / discharged? Hospital course, mention meds given and route, prescriptions, significant lab abnormalities, going to OR and other pertinent info. @ -I spoke with the [facility] hospitalist and they agreed to admit the patient. I consulted vascular surgery. I got a CT of the extremities. Undiagnosed new problem with uncertain prognosis? @ -No Drug Therapy requiring intensive monitoring for toxicity (Heparin, Nitro, Insulin, Cardizem)? @ -No Were any procedures done? @ -No Diagnosis/symptom? @ -Hypertensive urgency Acute, or Chronic, or Acute on Chronic? @ -Acute Uncomplicated (without systemic symptoms) or Complicated (systemic symptoms)? @ -Uncomplicated Side effects of treatment? @ -No Exacerbation, Progression, or Severe Exacerbation? @ -No Poses a threat to life or bodily function? How? (Chest pain, USA, OR, pneumonia, PE, COPD, DKA, ARF, appy, cholecystitis, CVA, Diverticulitis, Homicidal, Suicidal, threat to staff... and all critical care pts) @ -No Diagnosis/symptom? @ -Necrotic toe Acute, or Chronic, or Acute on Chronic? @ -Acute Uncomplicated (without systemic symptoms) or Complicated (systemic symptoms)? @ -Complicated Side effects of treatment? @ -none Exacerbation, Progression, or Severe Exacerbation] @ -no Poses a threat to life or bodily function? @ -no Diagnosis/symptom? @ -Peripheral artery disease Acute, or Chronic, or Acute on Chronic? @ -Acute Uncomplicated (without systemic symptoms) or Complicated (systemic symptoms)? @ -Complicated Side effects of treatment? @ -none Exacerbation, Progression, or Severe Exacerbation] @ -no Poses a threat to life or bodily function? @ -no (Rogelio Spangler) - Lab Data Lab Results 10/02/23 10/02/23 10/02/23 Range/Units 13:45 14:29 14:29 WBC 11.9 H (3.8-10.6) k/uL RBC 3.39 L (3.80-5.40) m/uL Hgb 11.0 L (11.4-16.0) gm/dL Hct 32.7 L (34.0-46.0) % MCV 96.4 (80.0-100.0) fL MCH 32.5 (25.0-35.0) pg MCHC 33.7 (31.0-37.0) g/dL RDW 12.9 (11.5-15.5) % Plt Count 252 (150-450) k/uL MPV 8.6 Neutrophils % 74 % Lymphocytes % 21 % Monocytes % 3 % Eosinophils % 1 % Basophils % 1 % Neutrophils # 8.7 H (1.3-7.7) k/uL Lymphocytes # 2.4 (1.0-4.8) k/uL Monocytes # 0.4 (0-1.0) k/uL Eosinophils # 0.1 (0-0.7) k/uL Basophils # 0.1 (0-0.2) k/uL Sodium 138 (137-145) mmol/L Potassium 4.7 (3.5-5.1) mmol/L Chloride 102 (98-107) mmol/L Carbon Dioxide 22 (22-30) mmol/L Anion Gap 14 mmol/L BUN 25 H (7-17) mg/dL Creatinine 0.94 (0.52-1.04) mg/dL Est GFR (CKD-EPI)AfAm 65 (>60 ml/min/1.73 sqM) Est GFR (CKD-EPI)NonAf 56 (>60 ml/min/1.73 sqM) Glucose 154 H (74-99) mg/dL Plasma Lactic Acid João 1.6 (0.7-2.0) mmol/L Calcium 9.2 (8.4-10.2) mg/dL Total Bilirubin 0.7 (0.2-1.3) mg/dL AST 24 (14-36) U/L ALT 12 (4-34) U/L Alkaline Phosphatase 54 (38-126) U/L Total Protein 6.5 (6.3-8.2) g/dL Albumin 3.3 L (3.5-5.0) g/dL Disposition <Darío Rodriguez - Last Filed: 10/02/23 11:57> Time of Disposition: 16:48 <Rogelio Spangler - Last Filed: 10/02/23 16:48> Clinical Impression: Necrotic toes, Peripheral artery disease, Hypertensive urgency Disposition: ADMITTED IP TO THIS HOSP Referrals: Thomas Lima MD [Primary Care Provider] - 1-2 days
--- NOTE | 2023-10-02 14:00 | XR ---
EXAMINATION TYPE: XR foot complete RT DATE OF EXAM: 10/02/2023 COMPARISON: NONE HISTORY: Pain TECHNIQUE: Three views are submitted. FINDINGS: The osseous structures are intact. There is no acute fracture or dislocation. Severe osteopenia. T here is mild to moderate arthropathy first MTP. Vascular calcifications noted. Moderate sized plantar calcaneal spur. Hammertoe deformities noted. Soft tissue edema noted. IMPRESSION: 1. No diagnostic evidence of osteomyelitis.. 2. Diffuse osteopenia with the arthropathy first MTP joint. No erosive changes 3. Hammertoe deformities.
[2023-10-02] MEDS ORDERED: hydrALAZINE HCL 25 MG TAB PO STA ×2 (14:14→14:50)
[2023-10-02] MEDS ORDERED: hydroCHLOROthiazide 12.5 MG CAP PO ONE (14:30)
[2023-10-02 14:53] LABS: Basophils # (A) 0.1 k/uL (0-0.2); Basophils % (A) 1 %; Eosinophils # (A) 0.1 k/uL (0-0.7); Eosinophils % (A) 1 %; HCT 32.7 % (34.0-46.0); Lymphocytes # (A) 2.4 k/uL (1.0-4.8); Lymphocytes % (A) 21 %; MCH 32.5 pg (25.0-35.0); MCHC 33.7 g/dL (31.0-37.0); MCV 96.4 fL (80.0-100.0); Mean Platelet Volume 8.6; Monocytes # (A) 0.4 k/uL (0-1.0); Monocytes % (A) 3 %; Neutrophils # (A) 8.7 k/uL (1.3-7.7); Neutrophils % (A) 74 %; Platelet Count 252 k/uL (150-450); RBC 3.39 m/uL (3.80-5.40); RDW 12.9 % (11.5-15.5); WBC 11.9 k/uL (3.8-10.6)
[2023-10-02 15:04] LABS: ALT 12 U/L (4-34); African American GFR (CKD) 65 (>60 ml/min/1.73 sqM); Anion Gap 14 mmol/L; Blood Urea Nitrogen 25 mg/dL (7-17); Calcium 9.2 mg/dL (8.4-10.2); Carbon Dioxide 22 mmol/L (22-30); Chloride 102 mmol/L (98-107); Glucose 154 mg/dL (74-99); Non-African American GFR(CKD) 56 (>60 ml/min/1.73 sqM); Sodium 138 mmol/L (137-145); Total Bilirubin 0.7 mg/dL (0.2-1.3)
[2023-10-02 15:08] LABS: AST 24 U/L (14-36); Albumin 3.3 g/dL (3.5-5.0); Alkaline Phosphatase 54 U/L (38-126); Potassium 4.7 mmol/L (3.5-5.1); Total Protein 6.5 g/dL (6.3-8.2)
[2023-10-02] MEDS ORDERED: SODIUM CHLORIDE 0.9% 1,000 ML IV ONE (16:52)
[2023-10-02] MEDS ORDERED: ONDANSETRON 4 MG/2 ML VIAL IVP PRN (18:10)
[2023-10-02] MEDS ORDERED: NALOXONE 0.4 MG/ML 1 ML VIAL IV PRN (18:10)
[2023-10-02] MEDS ORDERED: DEXTROSE 50% SYRINGE 50 ML IVP PRN ×2 (18:12)
--- NOTE | 2023-10-02 18:16 | CT ---
EXAMINATION: CT angio lower extremity BILAT with contrast and with 3-D reconstruction renderings at a n independent workstation DATE OF EXAM: 10/02/2023 HISTORY: Necrotic toes, hypertension. TECHNIQUE: Departmental CTA protocol with automated exposure control for dose reduction. CT DLP: 1081.6 mGycm CONTRAST: 100 ml mL Isovue 370. COMPARISON: 12/03/2022 FINDINGS: Imaging obtained from the superior iliac crest to client is here the feet. ARTERIAL VASCULATURE Imaging was obtained from a level just cephalad to the JORGE origin. No visualized infrarenal abdominal aortic aneurysm, and the JORGE is patent. Aortoiliac inflow is patent bilaterally. RIGHT LOWER EXTREMITY Right common iliac shows a calcified short-segment stenosis which appears hemodynamically significant . Distally the common iliac is patent as is the right external and internal iliac arteries. Origin of the right SWEATBAND SEPARATOR shows calcified short-segment stenosis which appears hemodynamically significant. Dist al SWEATBAND SEPARATOR shows calcified short segment stenosis which appears hemodynamically significant. Profunda fem oral is patent. SFA and popliteal artery are patent but show multifocal significant appearing stenose s throughout their course. There is a 3 vessel runoff and opacification of the anterior tibial/dorsal is pedis and posterior tibial artery on into the foot. LEFT LOWER EXTREMITY Left common iliac, external and internal iliac are widely patent. Proximal SWEATBAND SEPARATOR shows calcified short segment stenosis which appears hemodynamically significant. Remainder the SWEATBAND SEPARATOR is patent as is the pro tonja femoral. The SFA and popliteal arteries are patent but show multifocal significant appearing st enoses throughout their course. There is a 3 vessel runoff, but the posterior tibial is not well opac ified throughout the leg and it is the peroneal which opacifies the popliteal artery just above the a nkle which then courses on into the foot. Anterior tibial artery opacifies on into the foot with dors amanda pedis patent. PELVIS STRUCTURES No acute soft tissue or skeletal process. SKELETAL STRUCTURES No aggressive lesion. Limitation: CTA imaging has limited sensitivity for focal visceral lesions, intraluminal filling defects, and sherrill ous pathology. IMPRESSION: CT angio lower extremity BILAT
[2023-10-02 20:39] LABS: Glucose,Whole Blood 128 mg/dL (70-110)
[2023-10-02] MEDS: INSULIN ASPART (NovoLOG) 100 UNIT/ML VIAL SQ SCH (20:40)
[2023-10-02] MEDS ORDERED: NON FORMULARY DRUG (Cefuroxime Axetil [Ceftin] 500 MG Tablet) PO SCH (21:00)
[2023-10-03] MEDS: ACETAMINOPHEN TAB 325 MG TAB PO PRN ×2 (00:39→17:11)
[2023-10-03] MEDS ORDERED: MORPHINE ORAL SOLN 10 MG/5 ML CUP PO PRN (06:14)
[2023-10-03 06:30] LABS: Glucose,Whole Blood 132 mg/dL (70-110)
[2023-10-03] MEDS: INSULIN ASPART (NovoLOG) 100 UNIT/ML VIAL SQ SCH ×4 (07:04→20:52)
[2023-10-03] MEDS ORDERED: hydrALAZINE HCL 20 MG/ML 1 ML VIAL IVP PRN (08:37)
[2023-10-03] MEDS ORDERED: PANTOPRAZOLE 40 MG TABLET PO SCH (09:00)
[2023-10-03] MEDS: ANASTROZOLE 1 MG TAB PO SCH (09:33)
[2023-10-03] MEDS: CLOPIDOGREL 75 MG TAB PO SCH (09:33)
[2023-10-03] MEDS: amLODIPine 2.5 MG TAB PO SCH (09:34)
[2023-10-03] MEDS: hydroCHLOROthiazide 12.5 MG CAP PO SCH (09:34)
[2023-10-03] MEDS: hydrALAZINE HCL 25 MG TAB PO SCH ×2 (09:34→20:59)
[2023-10-03] MEDS: PANTOPRAZOLE 40 MG TABLET PO SCH ×2 (09:34→20:59)
[2023-10-03] MEDS: PREGABALIN 50 MG CAP PO SCH ×2 (09:34→20:59)
[2023-10-03] MEDS: CYANOCOBALAMIN 500 MCG TAB PO SCH (09:34)
[2023-10-03] MEDS: CHOLECALCIFEROL 25 MCG (1000 IU) TABLET PO SCH (09:34)
[2023-10-03] MEDS: ENOXAPARIN 40 MG/0.4 ML SYRINGE SQ SCH (09:34)
[2023-10-03 11:25] LABS: Glucose,Whole Blood 153 mg/dL (70-110)
[2023-10-03 11:32] LABS: BUN/Creat Ratio 18.27 Ratio (12.00-20.00); Blood Urea Nitrogen 20.1 mg/dL (9.0-27.0); Calcium 9.1 mg/dL (8.7-10.3); Chloride 104 mmol/L (96-109); Glucose 126 mg/dL (70-110); Magnesium 1.9 mg/dL (1.5-2.4); Potassium 3.9 mmol/L (3.5-5.5); Sodium 140 mmol/L (135-145)
[2023-10-03 11:33] LABS: Eosinophils # (A) 0.31 X 10*3/uL (0.04-0.35); HCT 31.4 % (37.2-46.3); HGB 10.4 g/dL (12.0-15.0); Lymphocytes # (A) 3.56 X 10*3/uL (0.90-5.00); Lymphocytes % (A) 34.1 %; MCH 31.7 pg (27.0-32.0); MCHC 33.1 g/dL (32.0-37.0); MCV 95.7 FL (80.0-97.0); Mean Platelet Volume 11.4 FL (9.5-12.2); Monocytes # (A) 0.73 X 10*3/uL (0.20-1.00); NRBC Per 100 WBC 0 X 10*3/uL (0.00-0.01); Neutrophils # (A) 5.66 X 10*3/uL (1.80-7.70); Neutrophils % (A) 54.1 %; Platelet Count 272 X 10*3/uL (140-440); RBC 3.28 X 10*6/uL (4.10-5.20); RDW 13.1 % (11.5-14.5); WBC 10.44 X 10*3/uL (4.50-10.00)
--- NOTE | 2023-10-03 11:49 | P.HPIM ---
History of Present Illness H&P Date: 10/03/23 Chief Complaint: Wound wound healing, peripheral arterial disease * 82-year-old patient with past medical history significant for hypertension, diabetes mellitus, coronary artery disease, history of breast cancer status post radiation on oral treatment, presents to the emergency department sent in for Wound Center for evaluation of lower extremity and vascular surgery consu lt. * At the time of presentation in ED initial workup included CBC which showed WBC count of 11.9 hemoglobin 11 platelet count of 252, serum chemistry showed sodium 138 potassium 4.7B and 25 creatinine 0.94 blood glucose 154 * X-ray of right foot was obtained which was negative for osteomyelitis, diffuse osteopenia with Arthopathy was noted * CT angiography was requested by wound care clinic ordered which showed right common iliac calcified stenosis, calcification in the right BONE GRINDER, constipation and distal BONE GRINDER. Diffuse calcification was noted please see CT report for details * At the time of initial presentation patient was noted to be hypertensive in ED she was given 1 dose of hydralazine and a home dose of hydrochlorothiazide. Follow blood pressure improved * Patient does complain of wound healing of right foot with discomfort * Patient was admitted to medical floor with consultation from vascular surgery for further evaluation REVIEW OF SYSTEMS: Right foot pain and distal digit necrosis CONSTITUTIONAL: No fever, no malaise, no fatigue. HEENT: No recent visual problems or hearing problems. Denied any sore throat. CARDIOVASCULAR: No chest pain, orthopnea, PND, no palpitations, no syncope. PULMONARY: No shortness of breath, no cough, no hemoptysis. GASTROINTESTINAL: No diarrhea, no nausea, no vomiting, no abdominal pain. NEUROLOGICAL: No headaches, no weakness, no numbness. HEMATOLOGICAL: Denies any bleeding or petechiae. GENITOURINARY: Denies any burning micturition, frequency, or urgency. MUSCULOSKELETAL/RHEUMATOLOGICAL: Denies any joint pain, swelling, or any muscle pain. ENDOCRINE: Denies any polyuria or polydipsia. PHYSICAL EXAMINATION: GENERAL: The patient is alert and oriented x3, not in any acute distress. Well developed, well nourished. HEENT: Pupils are round and equally reacting to light. EOMI. CARDIOVASCULAR: S1 and S2 present. No murmurs, rubs, or gallops. PULMONARY: Chest is clear to auscultation, no wheezing or crackles. ABDOMEN: Soft, nontender, nondistended, normoactive bowel sounds. No palpable organomegaly. MUSCULOSKELETAL: Erythema noted EXTREMITIES: distal digit discoloration right foot NEUROLOGICAL: Gross neurological examination did not reveal any focal deficits. SKIN: Right lower extremity foot wound Past Medical History Past Medical History: Diabetes Mellitus, Hypertension, Myocardial Infarction (SD) Additional Past Medical History / Comment(s): 1 functioning kidney Last Myocardial Infarction Date:: 1989 History of Any Multi-Drug Resistant Organisms: None Reported Past Surgical History: Appendectomy, Heart Catheterization With Stent, T onsillectomy, Tubal Ligation Past Anesthesia/Blood Transfusion Reactions: No Reported Reaction Date of Last Stent Placement:: 1989 Past Psychological History: No Psychological Hx Reported Smoking Status: Former smoker Past Alcohol Use History: None Reported Past Drug Use History: None Reported - Past Family History Mother Family Medical History: Diabetes Mellitus, Myocardial Infarction (SD) Father Family Medical History: Diabetes Mellitus, Myocardial Infarction (SD) Medications and Allergies Home Medications Medication Instructions Recorded Confirmed Type Atorvastatin [Lipitor] 20 mg PO HS 01/03/20 10/02/23 History Alendronate Sodium [Fosamax] 70 mg PO MO 11/16/22 10/02/23 History Anastrozole [Arimidex] 1 mg PO DAILY 11/16/22 10/02/23 History Ondansetron Odt [Zofran ODT] 4 mg PO Q8HR PRN #10 tab 12/03/22 10/02/23 Rx Cyanocobalamin [Vitamin B-12] 500 mcg PO DAILY 12/04/22 10/02/23 History hydroCHLOROthiazide 12.5 mg PO DAILY #15 cap 06/09/23 10/02/23 Rx Cholecalciferol [Vitamin D3 (25 50 mcg PO DAILY 10/02/23 10/02/23 History Mcg = 1000 Iu)] Clopidogrel [Plavix] 75 mg PO DAILY 10/02/23 10/02/23 History Morphine Sulfate [Morphine Sulfate 5 mg PO Q6H PRN 10/02/23 10/02/23 History 10 MG/5 ML] Omeprazole 40 mg PO BID 10/02/23 10/02/23 History Pantoprazole Sodium [Protonix] 40 mg PO BID 10/02/23 10/02/23 History Pregabalin [Lyrica] 50 mg PO BID 10/02/23 10/02/23 History amLODIPine [Norvasc] 2.5 mg PO DAILY 10/02/23 10/02/23 History hydrALAZINE HCL [Apresoline] 25 mg PO BID 10/02/23 10/02/23 History polyethylene glycoL 3350 [Miralax] 17 gm PO DAILY PRN 10/02/23 10/02/23 History Allergies Allergy/AdvReac Type Severity Reaction Status Date / Time Penicillins Allergy "Passes Verified 10/02/23 18:14 out" Physical Exam Vitals: Vital Signs Temp Pulse Pulse Resp BP BP Pulse Ox 10/03/23 07:54 99.7 F H 68 16 178/71 98 10/03/23 06:00 55 L 16 154/52 96 10/03/23 02:00 53 L 16 157/58 92 L 10/02/23 23:30 60 18 179/51 95 10/02/23 19:00 62 18 154/68 96 10/02/23 14:45 60 18 155/51 96 10/02/23 13:50 62 18 180/64 97 10/02/23 11:43 98.4 F 68 18 179/65 98 Results CBC & Chem 7: 10/03/23 07:15 10/03/23 07:15 Labs: Abnormal Lab Results - Last 24 Hours (Table) 10/02/23 10/02/23 10/02/23 Range/Units 14:29 14:29 20:35 WBC 11.9 H (3.8-10.6) k/uL RBC 3.39 L (3.80-5.40) m/uL Hgb 11.0 L (11.4-16.0) gm/dL Hct 32.7 L (34.0-46.0) % Neutrophils # 8.7 H (1.3-7.7) k/uL BUN 25 H (7-17) mg/dL Glucose 154 H (74-99) mg/dL POC Glucose (mg/dL) 128 H (70-110) mg/dL Albumin 3.3 L (3.5-5.0) g/dL 10/03/23 Range/Units 06:28 WBC (3.8-10.6) k/uL RBC (3.80-5.40) m/uL Hgb (11.4-16.0) gm/dL Hct (34.0-46.0) % Neutrophils # (1.3-7.7) k/uL BUN (7-17) mg/dL Glucose (74-99) mg/dL POC Glucose (mg/dL) 132 H (70-110) mg/dL Albumin (3.5-5.0) g/dL Assessment and Plan Assessment: Assessment and plan * Peripheral arterial disease with right lower extremity wound * Right foot cellulitis * Hypertensive urgency * History of breast cancer status post treatment * Hyperlipidemia * Diabetes mellitus type 2, HbA1c 7. Aug * Neuropathic pain * In regards to peripheral arterial disease, patient had CT angiography lower extremity completed, vascular surgery consulted continue current medical management including Plavix, Lipitor, on Lovenox for DVT prophylaxis * In regards to right foot cellulitis continue IV Rocephin, infectious disease consulted * In regards to hypertension continue home regimen including hydrochlorothiazide, hydralazine, amlodipine. When necessary IV hydralazine ordered * In regards to history of breast cancer continue home regimen including anastrozole * In regards to diabetes mellitus, Accu-Cheks before meals at bedtime continue correctional insulin while inpatient, will need follow-up with PCP * In regards to neuropathic pain continue patient on Lyrica * CODE STATUS is full code Time with Patient: Greater than 30
[2023-10-03 16:40] LABS: Glucose,Whole Blood 240 mg/dL (70-110)
--- NOTE | 2023-10-03 18:44 | P.GSCN ---
History of Present Illness Consult date: 10/03/23 Reason for Consult: Peripheral arterial disease Requesting physician: Rogelio Spangler History of present illness: A pleasant 82-year-old female who presented to the emergency department as directed by wound care clinic. They wanted patient evaluated for dry gangrene of the right great toe. Her past medical history includes diabetes, peripheral artery disease, hypertension and coronary artery disease status post stenting. 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 Waite in the office. She was supposed to get a CT angiogram of the lower extremities with runoff however they were unable to get an IV. She had this done while she was here in the hospital. CTA shows bilateral stenosis with significant stenosis on the right common iliac and right common femoral artery with significant stenosis. She states she s pain in bilateral feet and with right great toe pain. She has a wound to her right great toe. Xray shows no evidence of osteomyelitis. She currently denies any shortness of breath, chest pain, abdominal pain, nausea or vomiting. Review of Systems - Constitutional Reports as per HPI Past Medical History Past Medical History: Diabetes Mellitus, Hypertension, Myocardial Infarction ([place]) Additional Past Medical History / Comment(s): 1 functioning kidney Last Myocardial Infarction Date:: 1989 History of Any Multi-Drug Resistant Organisms: None Reported Past Surgical History: Appendectomy, Heart Catheterization With Stent, Tonsillectomy, Tubal Ligation Past Anesthesia/Blood Transfusion Reactions: No Reported Reaction Date of Last Stent Placement:: 1989 Past Psychological History: No Psychological Hx Reported Smoking Status: Former smoker Past Alcohol Use History: None Reported Past Drug Use History: None Reported - Past Family History Mother Family Medical History: Diabetes Mellitus, Myocardial Infarction ([place]) Father Family Medical History: Diabetes Mellitus, Myocardial Infarction ([place]) Medications and Allergies Home Medications Medication Instructions Recorded Confirmed Type Atorvastatin [Lipitor] 20 mg PO HS 01/03/20 10/02/23 History Alendronate Sodium [Fosamax] 70 mg PO MO 11/16/22 10/02/23 History Anastrozole [Arimidex] 1 mg PO DAILY 11/16/22 10/02/23 History Ondansetron Odt [Zofran ODT] 4 mg PO Q8HR PRN #10 tab 12/03/22 10/02/23 Rx Cyanocobalamin [Vitamin B-12] 500 mcg PO DAILY 12/04/22 10/02/23 History hydroCHLOROthiazide 12.5 mg PO DAILY #15 cap 06/09/23 10/02/23 Rx Cholecalciferol [Vitamin D3 (25 50 mcg PO DAILY 10/02/23 10/02/23 History Mcg = 1000 Iu)] Clopidogrel [Plavix] 75 mg PO DAILY 10/02/23 10/02/23 History Morphine Sulfate [Morphine Sulfate 5 mg PO Q6H PRN 10/02/23 10/02/23 History 10 MG/5 ML] Omeprazole 40 mg PO BID 10/02/23 10/02/23 History Pantoprazole Sodium [Protonix] 40 mg PO BID 10/02/23 10/02/23 History Pregabalin [Lyrica] 50 mg PO BID 10/02/23 10/02/23 History amLODIPine [Norvasc] 2.5 mg PO DAILY 10/02/23 10/02/23 History hydrALAZINE HCL [Apresoline] 25 mg PO BID 10/02/23 10/02/23 History polyethylene glycoL 3350 [Miralax] 17 gm PO DAILY PRN 10/02/23 10/02/23 History Allergies Allergy/AdvReac Type Severity Reaction Status Date / Time Penicillins Allergy "Passes Verified 10/02/23 18:14 out" Surgical - Exam Vital Signs Temp Pulse Resp BP Pulse Ox 98.4 F 68 18 179/65 98 10/02/23 11:43 10/02/23 11:43 10/02/23 11:43 10/02/23 11:43 10/02/23 11:43 GENERAL: The patient is alert and oriented x3, not in any acute distress. Well developed, well nourished. HEENT: Pupils are round and equally reacting to light. EOMI. CARDIOVASCULAR: S1 and S2 present. No murmurs, rubs, or gallops. PULMONARY: Chest is clear to auscultation, no wheezing or crackles. ABDOMEN: Soft, nontender, nondistended, normoactive bowel sounds. No palpable organomegaly. MUSCULOSKELETAL: Erythema noted EXTREMITIES: distal digit discoloration right foot NEUROLOGICAL: Gross neurological examination did not reveal any focal deficits. SKIN: Right great toe with dry gangrene Results - Labs 10/03/23 07:15 10/03/23 07:15 Abnormal Lab Results - Last 24 Hours (Table) 10/02/23 10/02/23 10/02/23 Range/Units 14:29 14:29 20:35 WBC 11.9 H (3.8-10.6) k/uL RBC 3.39 L (3.80-5.40) m/uL Hgb 11.0 L (11.4-16.0) gm/dL Hct 32.7 L (34.0-46.0) % Neutrophils # 8.7 H (1.3-7.7) k/uL BUN 25 H (7-17) mg/dL Glucose 154 H (74-99) mg/dL POC Glucose (mg/dL) 128 H (70-110) mg/dL Albumin 3.3 L (3.5-5.0) g/dL 10/03/23 Range/Units 06:28 WBC (3.8-10.6) k/uL RBC (3.80-5.40) m/uL Hgb (11.4-16.0) gm/dL Hct (34.0-46.0) % Neutrophils # (1.3-7.7) k/uL BUN (7-17) mg/dL Glucose (74-99) mg/dL POC Glucose (mg/dL) 132 H (70-110) mg/dL Albumin (3.5-5.0) g/dL Diabetes panel 10/02/23 Range/Units 14:29 Sodium 138 (137-145) mmol/L Potassium 4.7 (3.5-5.1) mmol/L Chloride 102 (98-107) mmol/L Carbon Dioxide 22 (22-30) mmol/L BUN 25 H (7-17) mg/dL Creatinine 0.94 (0.52-1.04) mg/dL Glucose 154 H (74-99) mg/dL Calcium 9.2 (8.4-10.2) mg/dL AST 24 (14-36) U/L ALT 12 (4-34) U/L Alkaline Phosphatase 54 (38-126) U/L Total Protein 6.5 (6.3-8.2) g/dL Albumin 3.3 L (3.5-5.0) g/dL Calcium panel 10/02/23 Range/Units 14:29 Calcium 9.2 (8.4-10.2) mg/dL Albumin 3.3 L (3.5-5.0) g/dL Pituitary panel 10/02/23 Range/Units 14:29 Sodium 138 (137-145) mmol/L Potassium 4.7 (3.5-5.1) mmol/L Chloride 102 (98-107) mmol/L Carbon Dioxide 22 (22-30) mmol/L BUN 25 H (7-17) mg/dL Creatinine 0.94 (0.52-1.04) mg/dL Glucose 154 H (74-99) mg/dL Calcium 9.2 (8.4-10.2) mg/dL Adrenal panel 10/02/23 Range/Units 14:29 Sodium 138 (137-145) mmol/L Potassium 4.7 (3.5-5.1) mmol/L Chloride 102 (98-107) mmol/L Carbon Dioxide 22 (22-30) mmol/L BUN 25 H (7-17) mg/dL Creatinine 0.94 (0.52-1.04) mg/dL Glucose 154 H (74-99) mg/dL Calcium 9.2 (8.4-10.2) mg/dL Total Bilirubin 0.7 (0.2-1.3) mg/dL AST 24 (14-36) U/L ALT 12 (4-34) U/L Alkaline Phosphatase 54 (38-126) U/L Total Protein 6.5 (6.3-8.2) g/dL Albumin 3.3 L (3.5-5.0) g/dL Assessment and Plan Assessment: 1. Right great toe with dry gangrene 2. Peripheral artery disease 3. Diabetes 4. Coronary artery disease 5. Possible SMA ischemia status post revascularization Plan: Patient will likely need right femoral endarterectomy. There is no urgency to this. Timing to be determined and further recommendations forthcoming per vascular surgeon. The impression and plan of care has been dictated as directed. I performed a history and examination of this patient, discussed the same with the dictator. I agree with the dictator's note ,documented as a scribe. Any additional findings or plans will be noted.
[2023-10-03 20:27] LABS: Glucose,Whole Blood 120 mg/dL (70-110)
[2023-10-03] MEDS: ATORVASTATIN 20 MG TAB PO SCH (20:59)
--- NOTE | 2023-10-04 00:17 | P.CONS ---
History of Present Illness - Reason for Consult Consult date: 10/03/23 - History of Present Illness Patient is a 82-year-old female with a past medical history significant for diabetes mellitus hypertension [place] apparently did have a nonhealing wound with some discoloration to the right big toe patient mention her symptom has been getting worse over the last few weeks and apparently p atient did have previous SMA stenosis requiring revascularization patient was evaluated at the wound care center and concern for possible gangrene of the right big toe patient was advised to go to the hospital patient denies any history of any trauma has been complaining of pain to the right big toe during more of a throbbing in nature moderate intensity without any radiation with associated swelling and minimal redness did not have any open wound or any drainage denies high-grade fever or any chills, patient on presentation to the hospital did have a 1 low-grade fever this morning of 99.7 patient was not tachycardic or hypertensive white count mild elevated 11.9 with a left shift creatinine was normal liver exams are normal patient did have x-ray of the foot no diagnostic evidence of osteomyelitis diffuse osteopenia with orthopedic force MTP joint patient did have lower extremity CTA and is being managed by vascular surgery with concern for cellulitis patient was started on Rocephin infectious disease was consulted for further management of antibiotic therapy Past Medical History Past Medical History: Diabetes Mellitus, Hypertension, Myocardial Infarction ([place]) Additional Past Medical History / Comment(s): 1 functioning kidney Last Myocardial Infarction Date:: 1989 History of Any Multi-Drug Resistant Organisms: None Reported Past Surgical History: Appendectomy, Heart Catheterization With Stent, Tonsillectomy, Tubal Ligation Additional Past Surgical History / Comment(s): 2 stents 2007, peripheral stent- Visi-Pro Past Anesthesia/Blood Transfusion Reactions: No Reported Reaction Date of Last Stent Placement:: 1989 Past Psychological History: No Psychological Hx Reported Smoking Status: Former smoker Past Alcohol Use History: None Reported Past Drug Use History: None Reported - Past Family History Mother Family Medical History: Diabetes Mellitus, Myocardial Infarction ([place]) Father Family Medical History: Diabetes Mellitus, Myocardial Infarction ([place]) Medications and Allergies Home Medications Medication Instructions Recorded Confirmed Type Atorvastatin [Lipitor] 20 mg PO HS 01/03/20 10/02/23 History Alendronate Sodium [Fosamax] 70 mg PO MO 11/16/22 10/02/23 History Anastrozole [Arimidex] 1 mg PO DAILY 11/16/22 10/02/23 History Ondansetron Odt [Zofran ODT] 4 mg PO Q8HR PRN #10 tab 12/03/22 10/02/23 Rx Cyanocobalamin [Vitamin B-12] 500 mcg PO DAILY 12/04/22 10/02/23 History hydroCHLOROthiazide 12.5 mg PO DAILY #15 cap 06/09/23 10/02/23 Rx Cholecalciferol [Vitamin D3 (25 50 mcg PO DAILY 10/02/23 10/02/23 History Mcg = 1000 Iu)] Clopidogrel [Plavix] 75 mg PO DAILY 10/02/23 10/02/23 History Morphine Sulfate [Morphine Sulfate 5 mg PO Q6H PRN 10/02/23 10/02/23 History 10 MG/5 ML] Omeprazole 40 mg PO BID 10/02/23 10/02/23 History Pantoprazole Sodium [Protonix] 40 mg PO BID 10/02/23 10/02/23 History Pregabalin [Lyrica] 50 mg PO BID 10/02/23 10/02/23 History amLODIPine [Norvasc] 2.5 mg PO DAILY 10/02/23 10/02/23 History hydrALAZINE HCL [Apresoline] 25 mg PO BID 10/02/23 10/02/23 History polyethylene glycoL 3350 [Miralax] 17 gm PO DAILY PRN 10/02/23 10/02/23 History Allergies Allergy/AdvReac Type Severity Reaction Status Date / Time Penicillins Allergy "Passes Verified 10/02/23 18:14 out" Physical Exam Vitals: Vital Signs Temp Pulse Pulse Resp BP BP Pulse Ox 10/03/23 10:52 68 16 10/03/23 07:54 99.7 F H 68 16 178/71 98 10/03/23 06:00 55 L 16 154/52 96 10/03/23 02:00 53 L 16 157/58 92 L 10/02/23 23:30 60 18 179/51 95 10/02/23 19:00 62 18 154/68 96 10/02/23 14:45 60 18 155/51 96 10/02/23 13:50 62 18 180/64 97 Intake and Output 10/02/23 10/03/23 10/03/23 22:59 06:59 14:59 Other: Voiding Method Toilet Weight 68.039 kg Results CBC & Chem 7: 10/03/23 07:15 10/03/23 07:15 Labs: Abnormal Lab Results - Last 24 Hours (Table) 10/02/23 10/02/23 10/02/23 Range/Units 14:29 14:29 20:35 WBC 11.9 H (3.8-10.6) k/uL RBC 3.39 L (3.80-5.40) m/uL Hgb 11.0 L (11.4-16.0) gm/dL Hct 32.7 L (34.0-46.0) % Immature Gran # (0.00-0.04) X 10*3/uL Neutrophils # 8.7 H (1.3-7.7) k/uL Anion Gap (4.00-12.00) mmol/L BUN 25 H (7-17) mg/dL Est GFR (CKD-EPI) (>=60) Glucose 154 H (74-99) mg/dL POC Glucose (mg/dL) 128 H (70-110) mg/dL Hemoglobin A1c (<=6.0) % Albumin 3.3 L (3.5-5.0) g/dL 10/03/23 10/03/23 10/03/23 Range/Units 06:28 07:15 07:15 WBC 10.44 H (3.8-10.6) k/uL RBC 3.28 L (3.80-5.40) m/uL Hgb 10.4 L (11.4-16.0) gm/dL Hct 31.4 L (34.0-46.0) % Immature Gran # 0.08 H (0.00-0.04) X 10*3/uL Neutrophils # (1.3-7.7) k/uL Anion Gap (4.00-12.00) mmol/L BUN (7-17) mg/dL Est GFR (CKD-EPI) (>=60) Glucose (74-99) mg/dL POC Glucose (mg/dL) 132 H (70-110) mg/dL Hemoglobin A1c 8.0 H (<=6.0) % Albumin (3.5-5.0) g/dL 10/03/23 10/03/23 Range/Units 07:15 11:23 WBC (3.8-10.6) k/uL RBC (3.80-5.40) m/uL Hgb (11.4-16.0) gm/dL Hct (34.0-46.0) % Immature Gran # (0.00-0.04) X 10*3/uL Neutrophils # (1.3-7.7) k/uL Anion Gap 13.00 H (4.00-12.00) mmol/L BUN (7-17) mg/dL Est GFR (CKD-EPI) 50 L (>=60) Glucose 126 H (74-99) mg/dL POC Glucose (mg/dL) 153 H (70-110) mg/dL Hemoglobin A1c (<=6.0) % Albumin (3.5-5.0) g/dL Assessment and Plan Plan: 1patient presented to hospital with gangrene to the right big toe and did have mild erythema in addition to low-grade fever and mild elevated white count concern for possible component of secondary cellulitis likely from gram-positive skin moy 2-patient with a penicillin allergy that will limit the number of antibiotics safe to use 3-discontinue Rocephin 4-start the patient cefazolin 2 g every 8 hours We will follow on clinical condition and cultures to further adjust medication if needed Thank you for this consultation we will follow the patient along with you Dictation was produced using [employer] dictation software. please excuse any grammatical, word or spelling errors. Time with Patient: Greater than 30
[2023-10-04 05:53] LABS: Glucose,Whole Blood 144 mg/dL (70-110)
[2023-10-04] MEDS: INSULIN ASPART (NovoLOG) 100 UNIT/ML VIAL SQ SCH ×4 (06:32→20:53)
[2023-10-04] MEDS: PREGABALIN 50 MG CAP PO SCH ×2 (08:28→20:27)
[2023-10-04] MEDS: hydroCHLOROthiazide 12.5 MG CAP PO SCH (08:28)
[2023-10-04] MEDS: CLOPIDOGREL 75 MG TAB PO SCH (08:28)
[2023-10-04] MEDS: PANTOPRAZOLE 40 MG TABLET PO SCH ×2 (08:28→20:27)
[2023-10-04] MEDS: amLODIPine 2.5 MG TAB PO SCH (08:28)
[2023-10-04] MEDS: ANASTROZOLE 1 MG TAB PO SCH (08:28)
[2023-10-04] MEDS: CYANOCOBALAMIN 500 MCG TAB PO SCH (08:28)
[2023-10-04] MEDS: hydrALAZINE HCL 25 MG TAB PO SCH ×2 (08:28→20:27)
[2023-10-04] MEDS: CHOLECALCIFEROL 25 MCG (1000 IU) TABLET PO SCH (08:28)
[2023-10-04] MEDS: ENOXAPARIN 40 MG/0.4 ML SYRINGE SQ SCH (08:29)
[2023-10-04 09:16] LABS: BUN/Creat Ratio 18.58 Ratio (12.00-20.00); Blood Urea Nitrogen 22.3 mg/dL (9.0-27.0); C Reactive Protein <0.30 mg/dL (0.00-0.80); Carbon Dioxide 26.4 mmol/L (21.6-31.8); Chloride 106 mmol/L (96-109); Glucose 130 mg/dL (70-110); Potassium 4.1 mmol/L (3.5-5.5); Sodium 145 mmol/L (135-145)
[2023-10-04 10:19] LABS: HCT 28.3 % (37.2-46.3); HGB 9.1 g/dL (12.0-15.0); MCH 31.1 pg (27.0-32.0); MCHC 32.2 g/dL (32.0-37.0); MCV 96.6 FL (80.0-97.0); Mean Platelet Volume 11.3 FL (9.5-12.2); NRBC Per 100 WBC 0 X 10*3/uL (0.00-0.01); Platelet Count 225 X 10*3/uL (140-440); RBC 2.93 X 10*6/uL (4.10-5.20); RDW 13.2 % (11.5-14.5); WBC 7.69 X 10*3/uL (4.50-10.00)
[2023-10-04 11:29] LABS: Glucose,Whole Blood 269 mg/dL (70-110)
--- NOTE | 2023-10-04 13:01 | P.GSCN ---
History of Present Illness Consult date: 10/04/23 Reason for Consult: Right lower extremity arterial occlusive disease was secondary dry gangrenous changes of the right great toe. History of present illness: Patient is an 82-year-old female who I have seen in the office one time with a history of dry gangrenous changes of the right great toe. She was initially sent for CT angiogram over this was not able to be completed. She was seen in wound care and patient was admitted from wound care. She denies chills or fevers or any changes in her foot. There is no history of ischemic rest pain. She has a history of previous aortoiliac percutaneous intervention. This was done earlier this year at [facility]. Past Medical History Past Medical History: Diabetes Mellitus, Hypertension, Myocardial Infarction ([place]) Additional Past Medical History / Comment(s): 1 functioning kidney Last Myocardial Infarction Date:: 1989 History of Any Multi-Drug Resistant Organisms: None Reported Past Surgical History: Appendectomy, Heart Catheterization With Stent, Tonsillectomy, Tubal Ligation Additional Past Surgical History / Comment(s): 2 stents 2007, peripheral stent- Visi-Pro Past Anesthesia/Blood Transfusion Reactions: No Reported Reaction Date of Last Stent Placement:: 1989 Past Psychological History: No Psychological Hx Reported Smoking Status: Former smoker Past Alcohol Use History: None Reported Past Drug Use History: None Reported - Past Family History Mother Family Medical History: Diabetes Mellitus, Myocardial Infarction ([place]) Father Family Medical History: Diabetes Mellitus, Myocardial Infarction ([place]) Medications and Allergies Home Medications Medication Instructions Recorded Confirmed Type Atorvastatin [Lipitor] 20 mg PO HS 01/03/20 10/02/23 History Alendronate Sodium [Fosamax] 70 mg PO MO 11/16/22 10/02/23 History Anastrozole [Arimidex] 1 mg PO DAILY 11/16/22 10/02/23 History Ondansetron Odt [Zofran ODT] 4 mg PO Q8HR PRN #10 tab 12/03/22 10/02/23 Rx Cyanocobalamin [Vitamin B-12] 500 mcg PO DAILY 12/04/22 10/02/23 History hydroCHLOROthiazide 12.5 mg PO DAILY #15 cap 06/09/23 10/02/23 Rx Cholecalciferol [Vitamin D3 (25 50 mcg PO DAILY 10/02/23 10/02/23 History Mcg = 1000 Iu)] Clopidogrel [Plavix] 75 mg PO DAILY 10/02/23 10/02/23 History Morphine Sulfate [Morphine Sulfate 5 mg PO Q6H PRN 10/02/23 10/02/23 History 10 MG/5 ML] Omeprazole 40 mg PO BID 10/02/23 10/02/23 History Pantoprazole Sodium [Protonix] 40 mg PO BID 10/02/23 10/02/23 History Pregabalin [Lyrica] 50 mg PO BID 10/02/23 10/02/23 History amLODIPine [Norvasc] 2.5 mg PO DAILY 10/02/23 10/02/23 History hydrALAZINE HCL [Apresoline] 25 mg PO BID 10/02/23 10/02/23 History polyethylene glycoL 3350 [Miralax] 17 gm PO DAILY PRN 10/02/23 10/02/23 History Allergies Allergy/AdvReac Type Severity Reaction Status Date / Time Penicillins Allergy "Passes Verified 10/02/23 18:14 out" Surgical - Exam Osteopathic Statement: *. No significant issues noted on an osteopathic structural exam other than those noted in the History and Physical/Consult. Vital Signs Temp Pulse Resp BP Pulse Ox 98.4 F 68 18 179/65 98 10/02/23 11:43 10/02/23 11:43 10/02/23 11:43 10/02/23 11:43 10/02/23 11:43 Femoral pulses are intact bilaterally. Dry gangrenous changes are noted involv ing the right great toe, unchanged when compared to previous office examination. I reviewed with the patient the results of the CT angiography demonstrating bilateral common femoral stenosis. It appears the patient would benefit from a right common femoral thromboendarterectomy. However prior to any elective surgical revascularization I do request cardiac evaluation/clearance. Currently from a surgical standpoint patient is stable and plan for office follow-up for elective revascularization once cleared medically Results - Labs 10/04/23 06:37 10/04/23 06:37 Abnormal Lab Results - Last 24 Hours (Table) 10/03/23 10/03/23 10/04/23 Range/Units 16:39 20:26 05:52 RBC (4.10-5.20) X 10*6/uL Hgb (12.0-15.0) g/dL Hct (37.2-46.3) % Anion Gap (4.00-12.00) mmol/L Est GFR (CKD-EPI) (>=60) Glucose (70-110) mg/dL POC Glucose (mg/dL) 240 H 120 H 144 H (70-110) mg/dL 10/04/23 10/04/23 10/04/23 Range/Units 06:37 06:37 11:28 RBC 2.93 L (4.10-5.20) X 10*6/uL Hgb 9.1 L (12.0-15.0) g/dL Hct 28.3 L (37.2-46.3) % Anion Gap 12.60 H (4.00-12.00) mmol/L Est GFR (CKD-EPI) 45 L (>=60) Glucose 130 H (70-110) mg/dL POC Glucose (mg/dL) 269 H (70-110) mg/dL Microbiology - Last 24 Hours (Table) 10/02/23 13:45 Blood Culture - Preliminary Blood 10/02/23 13:45 Blood Culture - Preliminary Blood Diabetes panel 10/04/23 Range/Units 06:37 Sodium 145 (135-145) mmol/L Potassium 4.1 (3.5-5.5) mmol/L Chloride 106 (96-109) mmol/L Carbon Dioxide 26.4 (21.6-31.8) mmol/L BUN 22.3 (9.0-27.0) mg/dL Creatinine 1.2 (0.6-1.5) mg/dL Glucose 130 H (70-110) mg/dL Calcium 9.0 (8.7-10.3) mg/dL Calcium panel 10/04/23 Range/Units 06:37 Calcium 9.0 (8.7-10.3) mg/dL Pituitary panel 10/04/23 Range/Units 06:37 Sodium 145 (135-145) mmol/L Potassium 4.1 (3.5-5.5) mmol/L Chloride 106 (96-109) mmol/L Carbon Dioxide 26.4 (21.6-31.8) mmol/L BUN 22.3 (9.0-27.0) mg/dL Creatinine 1.2 (0.6-1.5) mg/dL Glucose 130 H (70-110) mg/dL Calcium 9.0 (8.7-10.3) mg/dL Adrenal panel 10/04/23 Range/Units 06:37 Sodium 145 (135-145) mmol/L Potassium 4.1 (3.5-5.5) mmol/L Chloride 106 (96-109) mmol/L Carbon Dioxide 26.4 (21.6-31.8) mmol/L BUN 22.3 (9.0-27.0) mg/dL Creatinine 1.2 (0.6-1.5) mg/dL Glucose 130 H (70-110) mg/dL Calcium 9.0 (8.7-10.3) mg/dL
[2023-10-04 16:29] LABS: Glucose,Whole Blood 114 mg/dL (70-110)
[2023-10-04] MEDS: traMADol 50 MG TAB PO PRN (20:26)
[2023-10-04] MEDS: ATORVASTATIN 20 MG TAB PO SCH (20:27)
[2023-10-04 20:45] LABS: Glucose,Whole Blood 207 mg/dL (70-110)
--- NOTE | 2023-10-05 05:36 | P.PN ---
Subjective 82-year-old patient with past medical history significant for hypertension, diabetes mellitus, coronary artery disease, history of breast cancer status post radiation on oral treatment, presents to the emergency department sent in for Wound Center for evaluation of lower extremity and vascular surgery consult. At the time of presentation in ED initial workup included CBC which showed WBC count of 11.9 hemoglobin 11 platelet count of 252, serum chemistry showed sodium 138 potassium 4.7B and 25 creatinine 0.94 blood glucose 154 X-ray of right foot was obtained which was negative for osteomyelitis, diffuse osteopenia with Arthopathy was noted CT angiography was requested by wound care clinic ordered which showed right common iliac calcified stenosis, calcification in the right PSYCHIATRY PHYSICIAN, constipation and distal PSYCHIATRY PHYSICIAN. Diffuse calcification was noted please see CT report for details At the time of initial presentation patient was noted to be hypertensive in ED she was given 1 dose of hydralazine and a home dose of hydrochlorothiazide. Follow blood pressure improved Patient does complain of wound healing of right foot with discomfort Patient was admitted to medical floor with consultation from vascular surgery for further evaluation 10/04/2023 Patient with dry gangrene of the right big toe with evidence of surrounding mild cellulitis. Pain control no other new complaints Currently covered with cefazolin Patient will require right femoral endarterectomy Cardiology clearance Objective - Vital Signs Vital signs: Vital Signs Temp 98.1 F 10/04/23 07:44 Pulse 54 L 10/04/23 07:44 Resp 16 10/04/23 07:44 BP 157/72 10/04/23 07:44 Pulse Ox 96 10/04/23 07:44 FiO2 Intake & Output 10/03/23 10/04/23 10/04/23 18:59 06:59 18:59 Intake Total 550 Balance 550 Weight 68.039 kg Intake: Oral 550 Other: Voiding Method Toilet Toilet Toilet # Voids 3 0 - Exam GENERAL: The patient is alert and oriented x3, not in any acute distress. Well developed, well nourished. HEENT: Pupils are round and equally reacting to light. EOMI. No scleral icterus. No conjunctival pallor. Normocephalic, atraumatic. No pharyngeal erythema. No thyromegaly. CARDIOVASCULAR: S1 and S2 present. No murmurs, rubs, or gallops. PULMONARY: Chest is clear to auscultation, no wheezing , no crackles. ABDOMEN: Soft, nontender, nondistended, normoactive bowel sounds. No palpable organomegaly. MUSCULOSKELETAL: No joint swelling or deformity. -EXTREMITIES: No cyanosis, clubbing, or pedal edema. Dry gangrene of the right big toe with mild surrounding cellulitis NEUROLOGICAL: Gross neurological examination did not reveal any focal deficits. SKIN: No rashes. no petechiae. - Labs CBC & Chem 7: 10/04/23 06:37 10/04/23 06:37 Labs: Abnormal Lab Results - Last 24 Hours (Table) 10/03/23 10/03/23 10/04/23 Range/Units 16:39 20:26 05:52 RBC (4.10-5.20) X 10*6/uL Hgb (12.0-15.0) g/dL Hct (37.2-46.3) % Anion Gap (4.00-12.00) mmol/L Est GFR (CKD-EPI) (>=60) Glucose (70-110) mg/dL POC Glucose (mg/dL) 240 H 120 H 144 H (70-110) mg/dL 10/04/23 10/04/23 10/04/23 Range/Units 06:37 06:37 11:28 RBC 2.93 L (4.10-5.20) X 10*6/uL Hgb 9.1 L (12.0-15.0) g/dL Hct 28.3 L (37.2-46.3) % Anion Gap 12.60 H (4.00-12.00) mmol/L Est GFR (CKD-EPI) 45 L (>=60) Glucose 130 H (70-110) mg/dL POC Glucose (mg/dL) 269 H (70-110) mg/dL Microbiology - Last 24 Hours (Table) 10/02/23 13:45 Blood Culture - Preliminary Blood 10/02/23 13:45 Blood Culture - Preliminary Blood Assessment and Plan Assessment: Peripheral arterial disease with right lower extremity wound Right foot cellulitis Hypertensive urgency History of breast cancer status post treatment Hyperlipidemia Diabetes mellitus type 2, HbA1c 7. Aug Neuropathic pain Plan: Continue with cefazolin Vascular surgery input is appreciated patient will require right femoral endarterectomy Discussed be done as an outpatient per vascular surgery team. However will require preop cardiology clearance Infectious disease team on the case Labs and medication were reviewed.. Continue same treatment. Continue with symptomatic treatment. Resume home medication. Monitor labs and vitals. DVT and GI prophylaxis. Further recommendations as per clinical course of the patient DVT prophylaxis: Subcutaneous Lovenox GI Prophylaxis: Ppi PT/OT: Pending Prognosis is guarded
[2023-10-05 06:09] LABS: Glucose,Whole Blood 125 mg/dL (70-110)
[2023-10-05] MEDS: INSULIN ASPART (NovoLOG) 100 UNIT/ML VIAL SQ SCH ×4 (06:15→20:22)
[2023-10-05] MEDS: hydroCHLOROthiazide 12.5 MG CAP PO SCH (07:52)
[2023-10-05] MEDS: CYANOCOBALAMIN 500 MCG TAB PO SCH (07:52)
[2023-10-05] MEDS: amLODIPine 2.5 MG TAB PO SCH (07:52)
[2023-10-05] MEDS: hydrALAZINE HCL 25 MG TAB PO SCH ×2 (07:52→20:22)
[2023-10-05] MEDS: PREGABALIN 50 MG CAP PO SCH ×2 (07:52→20:22)
[2023-10-05] MEDS: CHOLECALCIFEROL 25 MCG (1000 IU) TABLET PO SCH (07:52)
[2023-10-05] MEDS: CLOPIDOGREL 75 MG TAB PO SCH (07:52)
[2023-10-05] MEDS: ANASTROZOLE 1 MG TAB PO SCH (07:53)
[2023-10-05] MEDS: ENOXAPARIN 30 MG/0.3 ML SYRINGE SQ SCH (07:53)
[2023-10-05] MEDS: PANTOPRAZOLE 40 MG TABLET PO SCH ×2 (08:03→20:22)
[2023-10-05 11:05] LABS: Glucose,Whole Blood 140 mg/dL (70-110)
--- NOTE | 2023-10-05 14:12 | P.CRDCN ---
History of Present Illness Consult date: 10/05/23 Requesting physician: Petr E Sheet Reason for Consult (text): pre op evaluation Chief complaint: right foot infection, hypertension History of present illness: A pleasant 82-year-old female patient who is new to the area and recently started following in the office, was scheduled for stress testing earlier this year but had to cancel due to hospitalization. She is unsure who she follows wi th. 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 Chest has a history of diabetes, PAD, hypertension, hyperlipidemia, and SMA stenosis s/p revascularization. 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 She's been seen by Dr. Waite and CTA showed bilateral stenosis with significant stenosis of the right common femoral artery. We've been asked to see the patient in consultation for preoperative evaluation. She is being scheduled for right common femoral artery thromboendarterectomy. She denies any complaints of chest discomfort, shortness of breath, orthopnea, edema or PND. She has no dizziness and has had no syncope. This had no recent cardiac workup. Past Medical History Past Medical History: Diabetes Mellitus, Hypertension, Myocardial Infarction (NJ) Additional Past Medical History / Comment(s): 1 functioning kidney Last Myocardial Infarction Date:: 1989 History of Any Multi-Drug Resistant Organisms: None Reported Past Surgical History: Appendectomy, Heart Catheterization With Stent, Tonsi llectomy, Tubal Ligation Additional Past Surgical History / Comment(s): 2 stents 2007, peripheral stent- Visi-Pro Past Anesthesia/Blood Transfusion Reactions: No Reported Reaction Date of Last Stent Placement:: 1989 Past Psychological History: No Psychological Hx Reported Smoking Status: Former smoker Past Alcohol Use History: None Reported Past Drug Use History: None Reported - Past Family History Mother Family Medical History: Diabetes Mellitus, Myocardial Infarction (NJ) Father Family Medical History: Diabetes Mellitus, Myocardial Infarction (NJ) Medications and Allergies Home Medications Medication Instructions Recorded Confirmed Type Atorvastatin [Lipitor] 20 mg PO HS 01/03/20 10/02/23 History Alendronate Sodium [Fosamax] 70 mg PO MO 11/16/22 10/02/23 History Anastrozole [Arimidex] 1 mg PO DAILY 11/16/22 10/02/23 History Ondansetron Odt [Zofran ODT] 4 mg PO Q8HR PRN #10 tab 12/03/22 10/02/23 Rx Cyanocobalamin [Vitamin B-12] 500 mcg PO DAILY 12/04/22 10/02/23 History hydroCHLOROthiazide 12.5 mg PO DAILY #15 cap 06/09/23 10/02/23 Rx Cholecalciferol [Vitamin D3 (25 50 mcg PO DAILY 10/02/23 10/02/23 History Mcg = 1000 Iu)] Clopidogrel [Plavix] 75 mg PO DAILY 10/02/23 10/02/23 History Morphine Sulfate [Morphine Sulfate 5 mg PO Q6H PRN 10/02/23 10/02/23 History 10 MG/5 ML] Omeprazole 40 mg PO BID 10/02/23 10/02/23 History Pantoprazole Sodium [Protonix] 40 mg PO BID 10/02/23 10/02/23 History Pregabalin [Lyrica] 50 mg PO BID 10/02/23 10/02/23 History amLODIPine [Norvasc] 2.5 mg PO DAILY 10/02/23 10/02/23 History hydrALAZINE HCL [Apresoline] 25 mg PO BID 10/02/23 10/02/23 History polyethylene glycoL 3350 [Miralax] 17 gm PO DAILY PRN 10/02/23 10/02/23 History Allergies Allergy/AdvReac Type Severity Reaction Status Date / Time Penicillins Allergy "Passes Verified 10/02/23 18:14 out" Physical Exam Vitals: Vital Signs Temp Pulse Resp BP Pulse Ox 10/05/23 07:09 98.3 F 54 L 16 135/63 95 10/05/23 01:07 98.2 F 54 L 18 138/44 91 L 10/04/23 20:08 98 F 60 18 167/76 98 Intake and Output 10/04/23 10/05/23 10/05/23 22:59 06:59 14:59 Other: Voiding Method Toilet # Voids 5 3 # Bowel Movements 1 PHYSICAL EXAMINATION: This is a 82-year-old female in no apparent distress at the time of my examination. VITAL SIGNS: reviewed HEENT: Head is atraumatic, normocephalic. Pupils are equal, round. Sclerae anicteric. Conjunctivae are clear. Mucous membranes of the mouth are moist. Neck is supple. There is no elevated jugular venous pressure. No carotid bruit is h eard. CHEST EXAMINATION: Clear to auscultation bilaterally. No wheezes rales or rhonchi. Respirations even and nonlabored. HEART EXAMINATION: Heart regular, positive S1 and S2. No S3. No S4. Systolic murmur. ABDOMEN: Soft, nontender. Bowel sounds are heard. No organomegaly noted. EXTREMITIES: No evidence of peripheral edema and no calf tenderness noted. NEUROLOGIC EXAMINATION: Patient is awake, alert and oriented x3. Results 10/04/23 06:37 10/04/23 06:37 Current Medications Generic Name Dose Route Start Last Admin Trade Name Freq PRN Reason Stop Dose Admin Acetaminophen 650 mg 10/02/23 18:10 10/03/23 17:11 Acetaminophen Tab 325 Mg Tab PO 650 mg Q6HR PRN Administration Mild Pain or Fever > 100.5 Aminophylline 100 mg 10/06/23 06:00 Aminophylline 500 Mg/20 Ml Vial IV 10/06/23 12:00 ONCE PRN Patient Response Amlodipine Besylate 2.5 mg 10/03/23 09:00 10/05/23 07:52 Amlodipine 2.5 Mg Tab PO 2.5 mg DAILY TIM Administration Anastrozole 1 mg 10/03/23 09:00 10/05/23 07:53 Anastrozole 1 Mg Tab PO 1 mg DAILY TIM Administration Atorvastatin Calcium 40 mg 10/05/23 21:00 Atorvastatin 40 Mg Tab PO HS TIM Caffeine Citrate 60 mg 10/06/23 06:00 Caffeine Citrate 60 Mg/3 Ml Vial IV 10/06/23 12:00 ONCE PRN Patient Response Cholecalciferol 50 mcg 10/03/23 09:00 10/05/23 07:52 Cholecalciferol 25 Mcg (1000 Iu) Tablet PO 50 mcg DAILY TIM Administration Clopidogrel Bisulfate 75 mg 10/03/23 09:00 10/05/23 07:52 Clopidogrel 75 Mg Tab PO 75 mg DAILY TIM Administration Cyanocobalamin 500 mcg 10/03/23 09:00 12 07:52 Cyanocobalamin 500 Mcg Tab PO 500 mcg DAILY TIM Administration Dextrose/Water 25 ml 10/02/23 18:12 Dextrose 50% Syringe 50 Ml IVP PER PROTOCOL PRN Hypoglycemia Protocol Dextrose/Water 50 ml 10/02/23 18:12 Dextrose 50% Syringe 50 Ml IVP PER PROTOCOL PRN Hypoglycemia Protocol Enoxaparin Sodium 30 mg 10/05/23 09:00 10/05/23 07:53 Enoxaparin 30 Mg/0.3 Ml Syringe SQ 30 mg DAILY TIM Administration Hydralazine HCl 25 mg 10/03/23 09:00 10/05/23 07:52 Hydralazine Hcl 25 Mg Tab PO 25 mg BID TIM Administration Hydralazine HCl 10 mg 10/03/23 08:37 Hydralazine Hcl 20 Mg/Ml 1 Ml Vial IVP Q6HR PRN Blood Pressure - High Hydrochlorothiazide 12.5 mg 10/03/23 09:00 10/05/23 07:52 Hydrochlorothiazide 12.5 Mg Cap PO 12.5 mg DAILY TIM Administration Cefazolin Sodium 2 gm/ Sodium 50 mls @ 100 mls/hr 10/04/23 21:00 10/05/23 07:52 Chloride IVPB 100 mls/hr Q12HR TIM Administration Protocol Insulin Aspart 0 unit 10/02/23 21:00 10/05/23 12:02 Insulin Aspart (Novolog) 100 Unit/Ml Vial SQ Not Given ACHS TIM Protocol Morphine Sulfate 5 mg 10/03/23 06:14 Morphine Oral Soln 10 Mg/5 Ml Cup PO Q6H PRN Pain Naloxone HCl 0.2 mg 10/02/23 18:10 Naloxone 0.4 Mg/Ml 1 Ml Vial IV Q2M PRN Opioid Reversal Ondansetron HCl 4 mg 10/02/23 18:10 Ondansetron 4 Mg/2 Ml Vial IVP Q8HR PRN Nausea And Vomiting Pantoprazole Sodium 40 mg 10/03/23 09:00 10/05/23 08:03 Pantoprazole 40 Mg Tablet PO 40 mg BID TIM Administration Pregabalin 50 mg 10/03/23 09:00 10/05/23 07:52 Pregabalin 50 Mg Cap PO 50 mg BID TIM Administration Regadenoson 0.4 mg 10/06/23 06:00 Regadenoson 0.4 Mg/5 Ml Syringe IV 10/06/23 12:00 ONCE PRN Per Protocol Tramadol HCl 50 mg 10/02/23 18:10 10/04/23 20:26 Tramadol 50 Mg Tab PO 50 mg Q6H PRN Administration Moderate Pain (Scale 4 to 6) Intake and Output 10/04/23 10/05/23 10/05/23 22:59 06:59 14:59 Other: Voiding Method Toilet # Voids 5 3 # Bowel Movements 1 10/04/23 06:37 10/04/23 06:37 Assessment and Plan Assessment: 1 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 Preciado 3 CAD with prior NJ and stenting 4 hypertension 5 hyperlipidemia 6 diabetes mellitus Plan: From cardiology's perspective patient has had no recent cardiac workup. We will schedule the patient to undergo Lexiscan Cardiolite as well as an echocardiogram to be done tomorrow. Further recommendations depending on the results. SPRAY GUN SIZER note has been reviewed, I agree with a documented findings and plan of care. Patient was seen and examined.
[2023-10-05 16:08] LABS: Glucose,Whole Blood 199 mg/dL (70-110)
[2023-10-05 19:23] LABS: Glucose,Whole Blood 204 mg/dL (70-110)
[2023-10-05] MEDS ORDERED: ATORVASTATIN 40 MG TAB PO SCH (21:00)
--- NOTE | 2023-10-05 23:27 | P.PN ---
Subjective 82-year-old patient with past medical history significant for hypertension, diabetes mellitus, coronary artery disease, history of breast cancer status post radiation on oral treatment, presents to the emergency department sent in for Wound Center for evaluation of lower extremity and vascular surgery consult. At the time of presentation in ED initial workup included CBC which showed WBC count of 11.9 hemoglobin 11 platelet count of 252, serum chemistry showed sodium 138 potassium 4.7B and 25 creatinine 0.94 blood glucose 154 X-ray of right foot was obtained which was negative for osteomyelitis, diffuse osteopenia with Arthopathy was noted CT angiography was requested by wound care clinic ordered which showed right common iliac calcified stenosis, calcification in the right WELDER EXPLOSION, constipation and distal WELDER EXPLOSION. Diffuse calcification was noted please see CT report for details At the time of initial presentation patient was noted to be hypertensive in ED she was given 1 dose of hydralazine and a home dose of hydrochlorothiazide. Follow blood pressure improved Patient does complain of wound healing of right foot with discomfort Patient was admitted to medical floor with consultation from vascular surgery for further evaluation 10/04/2023 Patient with dry gangrene of the right big toe with evidence of surrounding mild cellulitis. Pain control no other new complaints Currently covered with cefazolin Patient will require right femoral endarterectomy Cardiology clearance 10/05/2023 Patient infection when the great toe is improving while she is on antibiotic with cefazolin Vascular surgery team are planning for a right common femoral thromboendarterectomy. Chicken Catcher we'll do stress test and echocardiogram as part of preop evaluation prior to discharge Also we'll check CBC tomorrow. Objective - Vital Signs Vital signs: Vital Signs Temp 98.6 F 10/05/23 19:19 Pulse 57 L 10/05/23 19:19 Resp 18 10/05/23 19:19 BP 128/69 10/05/23 19:19 Pulse Ox 94 L 10/05/23 19:19 FiO2 Intake & Output 10/05/23 10/05/23 10/06/23 06:59 18:59 06:59 Other: Voiding Method Toilet # Voids 3 3 - Exam GENERAL: The patient is alert and oriented x3, not in any acute distress. Well developed, well nourished. HEENT: Pupils are round and equally reacting to light. EOMI. No scleral icterus. No conjunctival pallor. Normocephalic, atraumatic. No pharyngeal erythema. No thyromegaly. CARDIOVASCULAR: S1 and S2 present. No murmurs, rubs, or gallops. PULMONARY: Chest is clear to auscultation, no wheezing , no crackles. ABDOMEN: Soft, nontender, nondistended, normoactive bowel sounds. No palpable organomegaly. MUSCULOSKELETAL: No joint swelling or deformity. -EXTREMITIES: No cyanosis, clubbing, or pedal edema. Dry gangrene of the right big toe with mild surrounding cellulitis NEUROLOGICAL: Gross neurological examination did not reveal any focal deficits. SKIN: No rashes. no petechiae. - Labs CBC & Chem 7: 10/04/23 06:37 10/04/23 06:37 Labs: Abnormal Lab Results - Last 24 Hours (Table) 10/05/23 10/05/23 10/05/23 Range/Units 06:08 11:04 16:06 POC Glucose (mg/dL) 125 H 140 H 199 H (70-110) mg/dL 10/05/23 Range/Units 19:21 POC Glucose (mg/dL) 204 H (70-110) mg/dL Microbiology - Last 24 Hours (Table) 10/02/23 13:45 Blood Culture - Preliminary Blood 10/02/23 13:45 Blood Culture - Preliminary Blood Assessment and Plan Assessment: Peripheral arterial disease with right lower extremity wound. Will require a right common femoral thromboendarterectomy. As an outpatient. Will require preoperative evaluation Right foot cellulitis Hypertensive urgency History of breast cancer status post treatment Hyperlipidemia Diabetes mellitus type 2, HbA1c 7. Aug Neuropathic pain Plan: Stress test in the morning Patient is at some risk for going for surgery however there is no also contraindicated Continue with cefazolin Vascular surgery input is appreciated patient will require right femoral endarterectomy Discussed be done as an outpatient per vascular surgery team. However will require preop cardiology clearance Infectious disease team on the case Labs and medication were reviewed.. Continue same treatment. Continue with symptomatic treatment. Resume home medication. Monitor labs and vitals. DVT and GI prophylaxis. Further recommendations as per clinical course of the patient DVT prophylaxis: Subcutaneous Lovenox GI Prophylaxis: Ppi PT/OT: Pending Prognosis is guarded
--- NOTE | 2023-10-05 23:31 | P.PN ---
Subjective 82-year-old patient with past medical history significant for hypertension, diabetes mellitus, coronary artery disease, history of breast cancer status post radiation on oral treatment, presents to the emergency department sent in for Wound Center for evaluation of lower extremity and vascular surgery consult. At the time of presentation in ED initial workup included CBC which showed WBC count of 11.9 hemoglobin 11 platelet count of 252, serum chemistry showed sodium 138 potassium 4.7B and 25 creatinine 0.94 blood glucose 154 X-ray of right foot was obtained which was negative for osteomyelitis, diffuse osteopenia with Arthopathy was noted CT angiography was requested by wound care clinic ordered which showed right common iliac calcified stenosis, calcification in the right VP RESEARCH, constipation and distal VP RESEARCH. Diffuse calcification was noted please see CT report for details At the time of initial presentation patient was noted to be hypertensive in ED she was given 1 dose of hydralazine and a home dose of hydrochlorothiazide. Follow blood pressure improved Patient does complain of wound healing of right foot with discomfort Patient was admitted to medical floor with consultation from vascular surgery for further evaluation 10/04/2023 Patient with dry gangrene of the right big toe with evidence of surrounding mild cellulitis. Pain control no other new complaints Currently covered with cefazolin Patient will require right femoral endarterectomy Cardiology clearance 10/05/2023 Patient infection when the great toe is improving while she is on antibiotic with cefazolin Vascular surgery team are planning for a right common femoral thromboendarterectomy. Supervisor Porcelain Department we'll do stress test and echocardiogram as part of preop evaluation prior to discharge Also we'll check CBC tomorrow. Review of systems CONSTITUTIONAL: No fever, no malaise, no fatigue. HEENT: No recent visual problems or hearing problems. Denied any sore throat. CARDIOVASCULAR: No orthopnea, PND, no palpitations, no syncope. PULMONARY: No shortness of breath, no cough, no hemoptysis. Active Medications Generic Name Dose Route Start Last Admin Trade Name Freq PRN Reason Stop Dose Admin Acetaminophen 650 mg 10/02/23 18:10 10/03/23 17:11 Acetaminophen Tab 325 Mg Tab PO 650 mg Q6HR PRN Administration Mild Pain or Fever > 100.5 Aminophylline 100 mg 10/06/23 06:00 Aminophylline 500 Mg/20 Ml Vial IV 10/06/23 12:00 ONCE PRN Patient Response Amlodipine Besylate 2.5 mg 10/03/23 09:00 10/05/23 07:52 Amlodipine 2.5 Mg Tab PO 2.5 mg DAILY TIM Administration Anastrozole 1 mg 10/03/23 09:00 10/05/23 07:53 Anastrozole 1 Mg Tab PO 1 mg DAILY TIM Administration Atorvastatin Calcium 40 mg 10/05/23 21:00 10/05/23 20:22 Atorvastatin 40 Mg Tab PO 40 mg HS TIM Administration Caffeine Citrate 60 mg 10/06/23 06:00 Caffeine Citrate 60 Mg/3 Ml Vial IV 10/06/23 12:00 ONCE PRN Patient Response Cholecalciferol 50 mcg 10/03/23 09:00 10/05/23 07:52 Cholecalciferol 25 Mcg (1000 Iu) Tablet PO 50 mcg DAILY TIM Administration Clopidogrel Bisulfate 75 mg 10/03/23 09:00 10/05/23 07:52 Clopidogrel 75 Mg Tab PO 75 mg DAILY TIM Administration Cyanocobalamin 500 mcg 10/03/23 09:00 10/05/23 07:52 Cyanocobalamin 500 Mcg Tab PO 500 mcg DAILY TIM Administration Dextrose/Water 25 ml 10/02/23 18:12 Dextrose 50% Syringe 50 Ml IVP PER PROTOCOL PRN Hypoglycemia Protocol Dextrose/Water 50 ml 10/02/23 18:12 Dextrose 50% Syringe 50 Ml IVP PER PROTOCOL PRN Hypoglycemia Protocol Enoxaparin Sodium 30 mg 10/05/23 09:00 10/05/23 07:53 Enoxaparin 30 Mg/0.3 Ml Syringe SQ 30 mg DAILY TIM Administration Hydralazine HCl 25 mg 10/03/23 09:00 10/05/23 20:22 Hydralazine Hcl 25 Mg Tab PO 25 mg BID TIM Administration Hydralazine HCl 10 mg 10/03/23 08:37 Hydralazine Hcl 20 Mg/Ml 1 Ml Vial IVP Q6HR PRN Blood Pressure - High Hydrochlorothiazide 12.5 mg 10/03/23 09:00 10/05/23 07:52 Hydrochlorothiazide 12.5 Mg Cap PO 12.5 mg DAILY TIM Administration Cefazolin Sodium 2 gm/ Sodium 50 mls @ 100 mls/hr 10/04/23 21:00 10/05/23 20:22 Chloride IVPB 100 mls/hr Q12HR TIM Administration Protocol Insulin Aspart 0 unit 10/02/23 21:00 10/05/23 20:22 Insulin Aspart (Novolog) 100 Unit/Ml Vial SQ 6 unit ACHS TIM Administration Protocol Morphine Sulfate 5 mg 10/03/23 06:14 Morphine Oral Soln 10 Mg/5 Ml Cup PO Q6H PRN Pain Naloxone HCl 0.2 mg 10/02/23 18:10 Naloxone 0.4 Mg/Ml 1 Ml Vial IV Q2M PRN Opioid Reversal Ondansetron HCl 4 mg 10/02/23 18:10 Ondansetron 4 Mg/2 Ml Vial IVP Q8HR PRN Nausea And Vomiting Pantoprazole Sodium 40 mg 10/03/23 09:00 10/05/23 20:22 Pantoprazole 40 Mg Tablet PO 40 mg BID TIM Administration Pregabalin 50 mg 10/03/23 09:00 10/05/23 20:22 Pregabalin 50 Mg Cap PO 50 mg BID TIM Administration Regadenoson 0.4 mg 10/06/23 06:00 Regadenoson 0.4 Mg/5 Ml Syringe IV 10/06/23 12:00 ONCE PRN Per Protocol Tramadol HCl 50 mg 10/02/23 18:10 10/04/23 20:26 Tramadol 50 Mg Tab PO 50 mg Q6H PRN Administration Moderate Pain (Scale 4 to 6) Objective - Vital Signs Vital signs: Vital Signs Temp 97.9 F 10/05/23 14:03 Pulse 64 10/05/23 14:03 Resp 16 10/05/23 14:03 BP 161/67 10/05/23 14:03 Pulse Ox 93 L 10/05/23 14:03 FiO2 Intake & Output 10/05/23 10/05/23 10/06/23 06:59 18:59 06:59 Other: Voiding Method Toilet # Voids 3 3 - Exam GENERAL: The patient is alert and oriented x3, not in any acute distress. Well developed, well nourished. HEENT: Pupils are round and equally reacting to light. EOMI. No scleral icterus. No conjunctival pallor. Normocephalic, atraumatic. No pharyngeal erythema. No thyromegaly. CARDIOVASCULAR: S1 and S2 present. No murmurs, rubs, or gallops. PULMONARY: Chest is clear to auscultation, no wheezing , no crackles. ABDOMEN: Soft, nontender, nondistended, normoactive bowel sounds. No palpable organomegaly. MUSCULOSKELETAL: No joint swelling or deformity. -EXTREMITIES: No cyanosis, clubbing, or pedal edema. Dry gangrene of the right big toe with mild surrounding cellulitis NEUROLOGICAL: Gross neurological examination did not reveal any focal deficits. SKIN: No rashes. no petechiae. - Labs CBC & Chem 7: 10/04/23 06:37 10/04/23 06:37 Labs: Abnormal Lab Results - Last 24 Hours (Table) 10/04/23 10/05/23 10/05/23 Range/Units 20:44 06:08 11:04 POC Glucose (mg/dL) 207 H 125 H 140 H (70-110) mg/dL 10/05/23 10/05/23 Range/Units 16:06 19:21 POC Glucose (mg/dL) 199 H 204 H (70-110) mg/dL Microbiology - Last 24 Hours (Table) 10/02/23 13:45 Blood Culture - Preliminary Blood 10/02/23 13:45 Blood Culture - Preliminary Blood Assessment and Plan Assessment: Peripheral arterial disease with right lower extremity wound. Will require a right common femoral thromboendarterectomy. As an outpatient. Will require preoperative evaluation Right foot cellulitis Hypertensive urgency History of breast cancer status post treatment Hyperlipidemia Diabetes mellitus type 2, HbA1c 7. Aug Neuropathic pain Plan: Stress test in the morning Patient is at some risk for going for surgery however there is no also contraindicated Continue with cefazolin Vascular surgery input is appreciated patient will require right femoral endarterectomy Discussed be done as an outpatient per vascular surgery team. However will require preop cardiology clearance Infectious disease team on the case Labs and medication were reviewed.. Continue same treatment. Continue with symptomatic treatment. Resume home medication. Monitor labs and vitals. DVT and GI prophylaxis. Further recommendations as per clinical course of the patie nt DVT prophylaxis: Subcutaneous Lovenox GI Prophylaxis: Ppi PT/OT: Pending Prognosis is guarded
[2023-10-06] MEDS: traMADol 50 MG TAB PO PRN ×2 (01:06→13:16)
[2023-10-06] MEDS ORDERED: CAFFEINE CITRATE 60 MG/3 ML VIAL IV PRN (06:00)
[2023-10-06] MEDS ORDERED: AMINOPHYLLINE 500 MG/20 ML VIAL IV PRN (06:00)
[2023-10-06 06:01] LABS: Glucose,Whole Blood 137 mg/dL (70-110)
[2023-10-06] MEDS: INSULIN ASPART (NovoLOG) 100 UNIT/ML VIAL SQ SCH ×3 (06:06→17:19)
[2023-10-06] MEDS ORDERED: NON FORMULARY DRUG (Alendronate Sodium [Fosamax] 70 MG Tablet) PO SCH (06:14)
[2023-10-06] MEDS ORDERED: REGADENOSON 0.4 MG/5 ML SYRINGE IV PRN (07:00)
--- NOTE | 2023-10-06 09:22 | P.PN ---
Subjective Progress Note Date: 10/06/23 Principal diagnosis: Peripheral arterial disease, on dry gangrene right great toe Patient seen and examined as a follow-up. She is to undergo Lexiscan stress test and echocardiogram today as part of her cardiac workup for cardiac clearance. She denies any acute changes through the night. No fevers, chills, body aches, abdominal pain, nausea or vomiting. Objective - Vital Signs Vital signs: Vital Signs Temp 98.3 F 10/06/23 07:12 Pulse 55 L 10/06/23 07:12 Resp 19 10/06/23 07:12 BP 145/68 10/06/23 07:12 Pulse Ox 93 L 10/06/23 07:12 FiO2 Intake & Output 10/05/23 10/06/23 10/06/23 18:59 06:59 18:59 Other: Voiding Method Toilet # Voids 3 3 - Exam General appearance: The patient is alert, oriented, appears in no acute distress. HET: Head is normocephalic and atraumatic. Pupils are equal and reactive. Neck: Supple. Abdomen: Soft, nondistended. Extremities: Great toe dry gangrene. Neurological: No focal deficits. Strength and sensation are grossly intact. - Labs CBC & Chem 7: 10/04/23 06:37 10/04/23 06:37 Labs: Abnormal Lab Results - Last 24 Hours (Table) 10/05/23 10/05/23 10/05/23 Range/Units 11:04 16:06 19:21 POC Glucose (mg/dL) 140 H 199 H 204 H (70-110) mg/dL 10/06/23 Range/Units 06:00 POC Glucose (mg/dL) 137 H (70-110) mg/dL Microbiology - Last 24 Hours (Table) 10/02/23 13:45 Blood Culture - Preliminary Blood 10/02/23 13:45 Blood Culture - Preliminary Blood Assessment and Plan Assessment: 1. Right great toe with dry gangrene 2. Peripheral artery disease 3. Diabetes 4. Coronary artery disease Plan: Cardiology following patient for cardiac workup and cardiac clearance for right common femoral thromboendarterectomy which is planned for outpatient at this time. Await further recommendations from cardiology. She is otherwise cleared for discharge from vascular surgery and will need to follow up with Dr. Preciado in one to two weeks. The impression and plan of care has been dictated as directed. I performed a history and examination of this patient, discussed the same with the dictator. I agree with the dictator's note ,documented as a scribe. Any additional findings or plans will be noted.
[2023-10-06] MEDS: hydrALAZINE HCL 25 MG TAB PO SCH (09:39)
[2023-10-06] MEDS: amLODIPine 2.5 MG TAB PO SCH (09:39)
--- NOTE | 2023-10-06 11:11 | P.PN ---
Subjective Progress Note Date: 10/06/23 Chief complaint: right foot infection, hypertension History of present illness: A pleasant 82-year-old female patient who is new to the area and recently s tarted following in the office, was scheduled for stress testing earlier this year but had to cancel due to hospitalization. She is unsure who she follows with. She has a history of an WV in 1989 and subsequently underwent stenting in the early 1999. Chest has a history of diabetes, PAD, hypertension, hyperlipidemia, and SMA stenosis s/p revascularization. 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 She's been seen by Dr. Waite and CTA showed bilateral stenosis with significant stenosis of the right common femoral artery. We've been asked to see the patient in consultation for preoperative evaluation. She is being scheduled for right common femoral artery thromboendarterectomy. She denies any complaints of chest discomfort, shortness of breath, orthopnea, edema or PND. She has no dizziness and has had no syncope. This had no recent cardiac workup. 10/06 Patient is seen today in follow-up on the [facility] floor. She is scheduled for Lexiscan Cardiolite stress test and echocardiogram today. Patient denies having any chest pain. Thromboendarterectomy is tentatively scheduled for outpatient. Blood pressure 145/68, heart rate 55, pulse ox 93% on room air. PHYSICAL EXAMINATION: This is a 82-year-old female in no apparent distress at the time of my examination. VITAL SIGNS: reviewed HEENT: Head is atraumatic, normocephalic. Pupils are equal, round. Sclerae anicteric. Conjunctivae are clear. CHEST EXAMINATION: Clear to auscultation bilaterally. No wheezes rales or r honchi. Respirations even and nonlabored. HEART EXAMINATION: Heart regular, positive S1 and S2. No S3. No S4. Systolic murmur. EXTREMITIES: No evidence of peripheral edema and no calf tenderness noted. NEUROLOGIC EXAMINATION: Patient is awake, alert and oriented x3. 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 Preciado CAD with prior WV and stenting Hypertension Hyperlipidemia Diabetes mellitus Plan: Patient to undergo Lexiscan Cardiolite today 2-D echocardiogram ordered for today Follow up on results. PROJECT MANAGEMENT SPECIALIST note has been reviewed, I agree with a documented findings and plan of care. Patient was seen and examined. Objective - Vital Signs Vital signs: Vital Signs Temp 98.3 F 10/06/23 07:12 Pulse 55 L 10/06/23 07:12 Resp 19 10/06/23 07:12 BP 145/68 10/06/23 07:12 Pulse Ox 93 L 10/06/23 07:12 FiO2 Intake & Output 10/05/23 10/06/23 10/06/23 18:59 06:59 18:59 Other: Voiding Method Toilet # Voids 3 3 - Labs CBC & Chem 7: 10/04/23 06:37 10/04/23 06:37 Labs: Abnormal Lab Results - Last 24 Hours (Table) 10/05/23 10/05/23 10/05/23 Range/Units 11:04 16:06 19:21 POC Glucose (mg/dL) 140 H 199 H 204 H (70-110) mg/dL 10/06/23 Range/Units 06:00 POC Glucose (mg/dL) 137 H (70-110) mg/dL Microbiology - Last 24 Hours (Table) 10/02/23 13:45 Blood Culture - Preliminary Blood 10/02/23 13:45 Blood Culture - Preliminary Blood
[2023-10-06 13:13] LABS: Glucose,Whole Blood 146 mg/dL (70-110)
[2023-10-06] MEDS: hydroCHLOROthiazide 12.5 MG CAP PO SCH (13:13)
[2023-10-06] MEDS: PREGABALIN 50 MG CAP PO SCH (13:13)
[2023-10-06] MEDS: CYANOCOBALAMIN 500 MCG TAB PO SCH (13:14)
[2023-10-06] MEDS: ANASTROZOLE 1 MG TAB PO SCH (13:14)
[2023-10-06] MEDS: CLOPIDOGREL 75 MG TAB PO SCH (13:14)
[2023-10-06] MEDS: PANTOPRAZOLE 40 MG TABLET PO SCH (13:14)
[2023-10-06] MEDS: CHOLECALCIFEROL 25 MCG (1000 IU) TABLET PO SCH (13:14)
[2023-10-06] MEDS: ENOXAPARIN 30 MG/0.3 ML SYRINGE SQ SCH (13:15)
--- NOTE | 2023-10-06 13:17 | NM ---
EXAMINATION TYPE: NM stress lexiscan cardiolite DATE OF EXAM: 10/06/2023 COMPARISON: NONE CLINICAL INDICATION: Female, 82 years old with history of CAD, pre-op; TECHNIQUE: After the intravenous administration of 10.17 mCi Tc 99m Sestamibi - Cardiolite resting S PECT images acquired 75 minutes post injection. The patient received 0.4mg Lexiscan, 25.1 mCi Tc 99m Sestamibi - Stress images obtained [address] injection FINDINGS: Review of stress and rest SPECT images demonstrates no distinct perfusion abnormality. Gated analysi s shows normal wall motion with an estimated left ventricular ejection fraction of 60 %. IMPRESSION: No scintigraphic evidence for reversible ischemia.
[2023-10-06 15:17] VITALS: BP 169/71; PULSE 90; RESP 17; TEMP 97.4
--- NOTE | 2023-10-06 15:49 | CA ---
Lexiscan Nuclear Stress Test Report Name: Sirisha Rodriguez Exam Date: 10/06/2023 11:30 Exam Location: [place] Stress Ht (in): 63 Wt (lb): 150 BSA: 1.71 Ordering Phys: Dagmar Lynne NPC Referring Phys: DAGMAR LYNNE,, Technologist: Doyle Lawson Age: 82 Gender: F : 1940 Procedure CPT: Indications: Reflex order-Stress test ICD-10 Codes: Patient History: HTN, DM, CHOL, FAMILY HX, LA, CATH Medications: SEE CHART Meds past 24 hrs: Pretest Chest Pain: STRESS TEST Lexiscan Protocol Exercise Duration (min:sec): 02:[address] Depressions (mm): Angina Score: Muñoz Score: Resting HR (bpm): 62 Peak HR (bpm): 85 Resting BP (mmHg): 187 / 53 Peak BP (mmHg): 150 / 48 MPHR: 136 Target HR: 116 % MPHR: 63 METS: 1.0 Total Dose: Peak Dose: Atropine: Double Product: 10311 BP Response: Stress Termination: END OF DOSAGE Stress Symptoms: No reported symptoms with Lexiscan infusion. Stress Summary: ECG ANALYSIS Resting ECG: Resting EKG shows sinus rhythm with right bundle branch, heart rate 62 bpm Stress ECG: No significant ST-T wave changes diagnostic for ischemia by ST segment analysis. There were occasional PVCs. No sustained arrhythmia CONCLUSIONS Nonischemic ECG response to Lexiscan infusion Overall normal ECG portion of Lexiscan stress test Please refer to the nuclear portion of the imaging for complete interpretation of the study Dr Sukhwinder Garzon (Electronically Signed) Final Date: 06 October 2023 15:48
--- NOTE | 2023-10-06 15:52 | CA ---
Transthoracic Echo Report Name: Sirisha Rodriguez Age: 82 Gender: F : 1940 Exam Date: 10/06/2023 10:00 Exam Location: [place] Echo Ht (in): 63 Wt (lb): 150 Ordering Physician: Dagmar Candelario Attending/Referring Phys: [id number], [employer] Lock Technician Gabrielle Collins RDCS Procedure CPT: Indications: pre-op, cad Cardiac Hx: Technical Quality: Fair Contrast 1: Total Dose (mL): Contrast 2: Total Dose (mL): MEASUREMENTS (Male / Female) Normal Values 2D ECHO LV Diastolic Diameter PLAX 3.9 cm 4.2 - 5.9 / 3.9 - 5.3 cm LV Systolic Diameter PLAX 2.6 cm IVS Diastolic Thickness 1.5 cm 0.6 - 1.0 / 0.6 - 0.9 cm LVPW Diastolic Thickness 1.5 cm 0.6 - 1.0 / 0.6 - 0.9 cm LV Relative Wall Thickness 0.8 LA Volume 71.7 cm??? 18 - 58 / 22 - 52 cm??? LA Volume Index 40.8 cm???/m??? 16 - 28 cm???/m??? M-MODE Aortic Root Diameter MM 3.5 cm LA Systolic Diameter MM 3.9 cm LA Ao Ratio MM 1.1 AV Cusp Separation MM 1.7 cm DOPPLER AV Peak Velocity 125.9 cm/s AV Peak Gradient 6.3 mmHg AV Mean Velocity 85.9 cm/s AV Mean Gradient 3.4 mmHg AV Velocity Time Integral 35.6 cm LVOT Peak Velocity 101.8 cm/s LVOT Peak Gradient 4.1 mmHg LVOT Velocity Time Integral 28.6 cm MV Area PHT 3.0 cm??? Mitral E Point Velocity 73.0 cm/s Mitral A Point Velocity 120.0 cm/s Mitral E to A Ratio 0.6 MV Deceleration Time 248.9 ms MV E' Velocity 4.9 cm/s Mitral E to MV E' Ratio 14.8 TR Peak Velocity 217.7 cm/s TR Peak Gradient 19.0 mmHg Right Ventricular Systolic Press 23.3 mmHg FINDINGS Left Ventricle Moderately increased left ventricular wall thickness. Left ventricular cavity size normal. Normal left ventricular systolic function with no obvious regional wall motion abnormalities. Left ventricular ejection fraction is estimated at 55%. Right Ventricle Normal right ventricular size. Right ventricular systolic pressure within normal limits. Right Atrium Normal right atrial size. Left Atrium Moderately increased left atrial volume. Mitral Valve Structurally normal mitral valve. Mild mitral annular calcification. Mitral valve thickened. Trace to mild mitral regurgitation. Aortic Valve Trileaflet aortic valve. No aortic valve stenosis or regurgitation. Tricuspid Valve Structurally normal tricuspid valve. Mild tricuspid regurgitation. Pulmonic Valve Structurally normal pulmonic valve. No pulmonic regurgitation. Pericardium No pericardial effusion. Aorta Normal size aortic root and proximal ascending aorta. CONCLUSIONS Normal LV size and systolic function. LVEF 55% Moderate concentric LVH Grade 1 diastolic dysfunction No significant valvular dysfunction Previewed by: Dr Sukhwinder Garzon (Electronically Signed) Final Date: 06 October 2023 15:50
[2023-10-06 17:08] LABS: HCT 31.7 % (34.0-46.0); HGB 10.4 gm/dL (11.4-16.0); MCH 32.4 pg (25.0-35.0); MCHC 32.9 g/dL (31.0-37.0); MCV 98.4 fL (80.0-100.0); Mean Platelet Volume 8.7; Platelet Count 218 k/uL (150-450); RBC 3.22 m/uL (3.80-5.40); RDW 12.9 % (11.5-15.5); WBC 9.5 k/uL (3.8-10.6)
--- NOTE | 2023-10-06 18:24 | P.PN ---
Subjective Progress Note Date: 10/04/23 Principal diagnosis: Reason for follow-up is right big toe cellulitis This is a telemetry health visit Patient is a 82-year-old female with a past medical history signifi cant for diabetes mellitus hypertension [place] apparently did have a nonhealing wound with some discoloration to the right big toe, patient with the hospital concerning for right big toe gangrene and possible cellulitis On today's evaluation that is 10/04/2023, the patient continues to be afebrile, the patient is breathing comfortably on room air, patient denies chest pain shortness of breath, or cough, patient denies Abdominal pain and denies any nausea/vomiting or diarrhea , the patient pain to the right big toe slightly decreased in intensity Patient did have a white count of 7.69, creatinine 1.2 Objective - Vital Signs Vital signs: Vital Signs Temp 98.1 F 10/04/23 07:44 Pulse 54 L 10/04/23 07:44 Resp 16 10/04/23 07:44 BP 157/72 10/04/23 07:44 Pulse Ox 96 10/04/23 07:44 FiO2 Intake & Output 10/03/23 10/04/23 10/04/23 18:59 06:59 18:59 Intake Total 550 Balance 550 Weight 68.039 kg Intake: Oral 550 Other: Voiding Method Toilet Toilet # Voids 3 0 - Exam Elderly female lying in bed in no distress Unlabored breathing Right big toe discoloration about the same swelling redness slight decrease - Labs CBC & Chem 7: 10/06/23 16:38 10/04/23 06:37 Labs: Abnormal Lab Results - Last 24 Hours (Table) 10/03/23 10/03/23 10/03/23 Range/Units 07:15 07:15 07:15 WBC 10.44 H (4.50-10.00) X 10*3/uL RBC 3.28 L (4.10-5.20) X 10*6/uL Hgb 10.4 L (12.0-15.0) g/dL Hct 31.4 L (37.2-46.3) % Immature Gran # 0.08 H (0.00-0.04) X 10*3/uL Anion Gap 13.00 H (4.00-12.00) mmol/L Est GFR (CKD-EPI) 50 L (>=60) Glucose 126 H (70-110) mg/dL POC Glucose (mg/dL) (70-110) mg/dL Hemoglobin A1c 8.0 H (<=6.0) % 10/03/23 10/03/23 10/03/23 Range/Units 11:23 16:39 20:26 WBC (4.50-10.00) X 10*3/uL RBC (4.10-5.20) X 10*6/uL Hgb (12.0-15.0) g/dL Hct (37.2-46.3) % Immature Gran # (0.00-0.04) X 10*3/uL Anion Gap (4.00-12.00) mmol/L Est GFR (CKD-EPI) (>=60) Glucose (70-110) mg/dL POC Glucose (mg/dL) 153 H 240 H 120 H (70-110) mg/dL Hemoglobin A1c (<=6.0) % 10/04/23 10/04/23 Range/Units 05:52 06:37 WBC (4.50-10.00) X 10*3/uL RBC (4.10-5.20) X 10*6/uL Hgb (12.0-15.0) g/dL Hct (37.2-46.3) % Immature Gran # (0.00-0.04) X 10*3/uL Anion Gap 12.60 H (4.00-12.00) mmol/L Est GFR (CKD-EPI) 45 L (>=60) Glucose 130 H (70-110) mg/dL POC Glucose (mg/dL) 144 H (70-110) mg/dL Hemoglobin A1c (<=6.0) % Microbiology - Last 24 Hours (Table) 10/02/23 13:45 Blood Culture - Preliminary Blood 10/02/23 13:45 Blood Culture - Preliminary Blood Assessment and Plan (1) Cellulitis of great toe, right Current Visit: Yes Status: Acute Code(s): L03.031 - CELLULITIS OF RIGHT TOE SNOMED Code(s): 81927024 Plan: 1patient presented to hospital with gangrene to the right big toe and did have mild erythema in addition to low-grade fever and mild elevated white count concern for possible component of secondary cellulitis likely from gram-positive skin moy 2-patient with a penicillin allergy that will limit the number of antibiotics safe to use 3Patient to continue with cefazolin 2 g every 8 hours and monitor clinical course closely Dictation was produced using [employer] dictation software. please excuse any grammatical, word or spelling errors. Time with Patient: Less than 30
--- NOTE | 2023-10-06 18:26 | P.PN ---
Subjective Progress Note Date: 10/05/23 Principal diagnosis: Reason for follow-up is right big toe cellulitis This is a telemetry health visit Patient is a 82-year-old female with a past medical history signifi cant for diabetes mellitus hypertension [place] apparently did have a nonhealing wound with some discoloration to the right big toe, patient with the hospital concerning for right big toe gangrene and possible cellulitis On today's evaluation that is 10/05/2023 the patient continues to be afebrile, the patient is breathing comfortably on room air without need for oxygen, the patient denies having any chest pain or cough and no sputum production, patient denies nausea vomiting or any diarrhea, and no abdominal pain, the patient denies any worsening pain to the right big toe Patient did have a white count of 7.69, creatinine 1.2 as of yesterday no lab draw today Objective - Vital Signs Vital signs: Vital Signs Temp 98.3 F 10/05/23 07:09 Pulse 54 L 10/05/23 07:09 Resp 16 10/05/23 07:09 BP 135/63 10/05/23 07:09 Pulse Ox 95 10/05/23 07:09 FiO2 Intake & Output 10/04/23 10/05/23 10/05/23 18:59 06:59 18:59 Other: Voiding Method Toilet # Voids 5 3 # Bowel Movements 1 - Exam Elderly female lying in bed in no distress Unlabored breathing Right big toe discoloration about the same swelling redness slight decrease - Labs CBC & Chem 7: 10/06/23 16:38 10/04/23 06:37 Labs: Abnormal Lab Results - Last 24 Hours (Table) 10/04/23 10/04/23 10/04/23 Range/Units 06:37 11:28 16:27 RBC 2.93 L (4.10-5.20) X 10*6/uL Hgb 9.1 L (12.0-15.0) g/dL Hct 28.3 L (37.2-46.3) % POC Glucose (mg/dL) 269 H 114 H (70-110) mg/dL 10/04/23 10/05/23 Range/Units 20:44 06:08 RBC (4.10-5.20) X 10*6/uL Hgb (12.0-15.0) g/dL Hct (37.2-46.3) % POC Glucose (mg/dL) 207 H 125 H (70-110) mg/dL Microbiology - Last 24 Hours (Table) 10/02/23 13:45 Blood Culture - Preliminary Blood 10/02/23 13:45 Blood Culture - Preliminary Blood Assessment and Plan (1) Cellulitis of great toe, right Current Visit: Yes Status: Acute Code(s): L03.031 - CELLULITIS OF RIGHT TOE SNOMED Code(s): 44111301 Plan: 1patient presented to hospital with gangrene to the right big toe and did have mild erythema in addition to low-grade fever and mild elevated white count concern for possible component of secondary cellulitis likely from gram-positive skin moy 2-patient with a penicillin allergy that will limit the number of antibiotics safe to use 3Patient did have some clinical improvement and will continue with cefazolin 2 g every 8 hours and monitor clinical course closely Dictation was produced using [employer] dictation software. please excuse any grammatical, word or spelling errors. Time with Patient: Less than 30
--- NOTE | 2023-10-06 18:27 | P.PN ---
Subjective Progress Note Date: 10/06/23 Principal diagnosis: Reason for follow-up is right big toe cellulitis Patient is a 82-year-old female with a past medical history significant for diabetes mellitus hypertension [place] apparently did have a nonhealing wound with some discoloration to the right big toe, patient with the hospital concerning for right big toe gangrene and possible cellulitis On today's evaluation that is 10/06/2023 the patient denies any fever or any chills, the patient is breathing comfortably on room air, the patient denies nausea vomiting or any diarrhea, and no abdominal pain, the patient denies having any chest pain shortness of breath or cough, the patient pain to the right big toe has decreased in intensity Patient did have a white count of 9.5, creatinine 1.2 as of 10/04/2023 Objective - Vital Signs Vital signs: Vital Signs Temp 98.3 F 10/06/23 07:12 Pulse 55 L 10/06/23 07:12 Resp 19 10/06/23 07:12 BP 145/68 10/06/23 07:12 Pulse Ox 93 L 10/06/23 07:12 FiO2 Intake & Output 10/05/23 10/06/23 10/06/23 18:59 06:59 18:59 Other: Voiding Method Toilet Toilet # Voids 3 3 - Exam GENERAL DESCRIPTION: An elderly female male lying in bed in no distress RESPIRATORY SYSTEM: Unlabored breathing , clear to auscultation anteriorly HEART: S1 S2 regular rate and rhythm , ABDOMEN: Soft , no tenderness EXTREMITIES: Right big toe discoloration about the same surrounding redness has improved no drainage - Labs CBC & Chem 7: 10/06/23 16:38 10/04/23 06:37 Labs: Abnormal Lab Results - Last 24 Hours (Table) 10/05/23 10/05/23 10/06/23 Range/Units 16:06 19:21 06:00 POC Glucose (mg/dL) 199 H 204 H 137 H (70-110) mg/dL Microbiology - Last 24 Hours (Table) 10/02/23 13:45 Blood Culture - Preliminary Blood 10/02/23 13:45 Blood Culture - Preliminary Blood Assessment and Plan (1) Cellulitis of great toe, right Current Visit: Yes Status: Acute Code(s): L03.031 - CELLULITIS OF RIGHT TOE SNOMED Code(s): 41317433 Plan: 1patient presented to hospital with gangrene to the right big toe and did have mild erythema in addition to low-grade fever and mild elevated white count concern for possible component of secondary cellulitis likely from gram-positive skin moy 2-patient with a penicillin allergy that will limit the number of antibiotics safe to use 3Patient did have some clinical improvement and will continue with cefazolin 2 g every 8 hours while inpatient and plan to finish therapy with oral Keflex prescription was sent to the pharmacy Dictation was produced using [employer] dictation software. please excuse any grammatical, word or spelling errors. Time with Patient: Less than 30
--- NOTE | 2023-10-07 07:01 | P.DS ---
Providers Date of admission: 10/02/23 16:52 Attending physician: Senthil Alvarez MD Consults: 10/02/23 16:52 Consult Physician Urgent Consulting Provider: Lázaro Preciado Consult Reason/Comments: Peripheral artery disease Do you want consulting provider notified?: Yes 10/03/23 11:45 Consult Physician Routine Consulting Provider: Estrella Brooke Consult Reason/Comments: right foot cellulitis Do you want consulting provider notified?: Yes 10/05/23 05:31 Consult Physician Routine Consulting Provider: Yoon Bond Consult Reason/Comments: pre op evaluation Do you want consulting provider notified?: Yes, Notify in am Primary care physician: [facility] Hospital Course: Diagnoses: Peripheral arterial disease with right lower extremity wound. Will require a right common femoral thromboendarterectomy. As an outpatient. Will require preoperative evaluation Right foot cellulitis, improving Hypertension, stable upon discharge History of breast cancer status post treatment Hyperlipidemia Diabetes mellitus type 2, HbA1c 7. Aug Neuropathic pain Hospital course: 82-year-old patient with past medical history significant for hypertension, diabetes mellitus, coronary artery disease, history of breast cancer status post radiation on oral treatment, presents to the emergency department sent in for [facility]ound [facility] for evaluation of lower extremity and vascular surgery consult. Patient was found to have right great toe cellulitis with a dry gangrene related to his peripheral artery disease on the right lower extremity, he is been evaluated by vascular surgeon Dr. Waite and cleared him for discharge and follow-up outpatient for right common femoral thromboendarterectomy. As such patient evaluated by dobie man and he underwent stress test which was unremarkable for any reversible ischemia while echocardiogram: Showed ejection fraction of 55% with moderate LVH and grade 1 diastolic dysfunction and no significant valvular dysfunction. Also patient treated with IV antibiotics cefazolin which is switched to oral complex upon discharge 3 weeks per recommendation of infectious disease team who were following the patient closely Patient remained clinically stable with no chest pain dyspnea. New complaints. She was cleared for discharge by all consults used with vascular surgery team, dobie man and infectious disease team. Problems and management plan were discussed with the patient and he verbalized understanding and acceptance Patient was found stable and can be discharged home in guarded prognosis however he needs follow-up as an outpatient. Patient was instructed to follow up with PCP within one week and patient agrees Physical exam Gen: patient is a AAOx3, no distress CVS: S1-S2, RRR, no murmur Lungs: B/L CTA, no wheezing Abdomen: soft, no distention, no tenderness, positive bowel sounds -Extremity: no leg edema or induration improving right great toe cellulitis with a dry gangrene. Time spent more than 35 minutes Plan - Discharge Summary Discharge Rx Participant: No New Discharge Prescriptions: New Atorvastatin [Lipitor] 40 mg PO HS #30 tab Acetaminophen Tab [Tylenol] 650 mg PO Q6HR PRN #20 tab PRN Reason: Mild Pain Or Fever > 100.5 Cephalexin [Keflex] 500 mg PO Q8HR 7 Days #21 cap traMADol HCl [Ultram] 50 mg PO BID 5 Days #10 tab Continue Anastrozole [Arimidex] 1 mg PO DAILY Ondansetron Odt [Zofran ODT] 4 mg PO Q8HR PRN #10 tab PRN Reason: Nausea Cyanocobalamin [Vitamin B-12] 500 mcg PO DAILY hydroCHLOROthiazide 12.5 mg PO DAILY #15 cap Morphine Sulfate [Morphine Sulfate 10 MG/5 ML] 5 mg PO Q6H PRN PRN Reason: Pain Pantoprazole Sodium [Protonix] 40 mg PO BID Omeprazole 40 mg PO BID hydrALAZINE HCL [Apresoline] 25 mg PO BID amLODIPine [Norvasc] 2.5 mg PO DAILY Pregabalin [Lyrica] 50 mg PO BID 3 Days #6 cap Alendronate Sodium [Fosamax] 70 mg PO MO polyethylene glycoL 3350 [Miralax] 17 gm PO DAILY PRN PRN Reason: Constipation Clopidogrel [Plavix] 75 mg PO DAILY Cholecalciferol [Vitamin D3 (25 Mcg = 1000 Iu)] 50 mcg PO DAILY Discontinued Atorvastatin [Lipitor] 20 mg PO HS Discharge Medication List Alendronate Sodium [Fosamax] 70 mg PO MO 11/16/22 [History] Anastrozole [Arimidex] 1 mg PO DAILY 11/16/22 [History] Ondansetron Odt [Zofran ODT] 4 mg PO Q8HR PRN #10 tab 12/03/22 [Rx] Cyanocobalamin [Vitamin B-12] 500 mcg PO DAILY 12/04/22 [History] hydroCHLOROthiazide 12.5 mg PO DAILY #15 cap 06/09/23 [Rx] Cholecalciferol [Vitamin D3 (25 Mcg = 1000 Iu)] 50 mcg PO DAILY 10/02/23 [History] Clopidogrel [Plavix] 75 mg PO DAILY 10/02/23 [History] Morphine Sulfate [Morphine Sulfate 10 MG/5 ML] 5 mg PO Q6H PRN 10/02/23 [History] Omeprazole 40 mg PO BID 10/02/23 [History] Pantoprazole Sodium [Protonix] 40 mg PO BID 10/02/23 [History] amLODIPine [Norvasc] 2.5 mg PO DAILY 10/02/23 [History] hydrALAZINE HCL [Apresoline] 25 mg PO BID 10/02/23 [History] polyethylene glycoL 3350 [Miralax] 17 gm PO DAILY PRN 10/02/23 [History] Acetaminophen Tab [Tylenol] 650 mg PO Q6HR PRN #20 tab 10/06/23 [Rx] Atorvastatin [Lipitor] 40 mg PO HS #30 tab 10/06/23 [Rx] Cephalexin [Keflex] 500 mg PO Q8HR 7 Days #21 cap 10/06/23 [Rx] Pregabalin [Lyrica] 50 mg PO BID 3 Days #6 cap 10/06/23 [Rx] traMADol HCl [Ultram] 50 mg PO BID 5 Days #10 tab 10/06/23 [Rx] Follow up Appointment(s)/Referral(s): Thomas Lima MD [Primary Care Provider] - 1-2 days Lázaro Preciado DO [Doctor of Osteopathic Medicine] - 1 Week Activity/Diet/Wound Care/Special Instructions: heart healthy diet activity is restricted till you see your doctor Discharge Disposition: HOME SELF-CARE
== END 2023-10-06 19:05 | disposition home or self-care (01) | DRG 300 ==
LOC: EC 11:36 → 4SSUR 16:52
PROVIDERS: ADMIT Internal Medicine; ATTEND Internal Medicine
DX: E11.52 Type 2 diabetes mellitus with diabetic peripheral angiopathy with gangrene (principal); I70.261 Atherosclerosis of native arteries of extremities with gangrene, right leg; K55.1 Chronic vascular disorders of intestine; L03.115 Cellulitis of right lower limb; E78.5 Hyperlipidemia, unspecified; I16.0 Hypertensive urgency; I10 Essential (primary) hypertension; I25.10 Atherosclerotic heart disease of native coronary artery without angina pectoris; I25.2 Old myocardial infarction; Z53.09 Procedure and treatment not carried out because of other contraindication; L03.031 Cellulitis of right toe; Z79.811 Long term (current) use of aromatase inhibitors; Z79.82 Long term (current) use of aspirin; Z79.83 Long term (current) use of bisphosphonates; Z79.84 Long term (current) use of oral hypoglycemic drugs; Z79.899 Other long term (current) drug therapy; Z82.49 Family history of ischemic heart disease and other diseases of the circulatory system; Z83.3 Family history of diabetes mellitus; Z85.3 Personal history of malignant neoplasm of breast; Z92.3 Personal history of irradiation; Z79.02 Long term (current) use of antithrombotics/antiplatelets; Z95.5 Presence of coronary angioplasty implant and graft
CPT/HCPCS: 36415; 78452; 80048; 80053; 83036; 83605; 83735; 84145; 85025; 85027; 86140; 87040; 93017; 93306; 99285

== ENCOUNTER → 2023-11-03 | Day surgery (SDC) | payer BC ==
[~2023-11-03] MED LIST: ALPRAZolam 0.25 MG TAB PO PRN; ASPIRIN 325 MG TAB PO PRN; HEPARIN SODIUM,PORCINE (1 ML) 2,500 UNIT in SODIUM CHLORIDE 0.9% 250 ML IRRIGATION PRN; HEPARIN SODIUM,PORCINE 10,000 UNIT in SODIUM CHLORIDE 0.9% 1,000 ML IRRIGATION PRN; HYDROcodone/APAP 7.5-325MG 1 EACH TAB ONE; HYDROcodone/APAP 7.5-325MG 1 EACH TAB PO ONE; IOPAMIDOL-370 100ML BTL INJ ONE; LIDOCAINE 1% INJ 10MG/ML (30 ML VIAL-PF) SQ ONE; MIDAZOLAM 2 MG/2 ML VIAL IVP ONE; SODIUM CHLORIDE 0.9% 1,000 ML in EMPTY BAG 1 BAG IV ONE; ZOLPIDEM 5 MG TAB PO PRN; fentaNYL (PF) 50 MCG/1 ML VIAL IVP ONE; fentaNYL (PF) 50 MCG/ML 2 ML AMP ONE; hydrALAZINE HCL 25 MG TAB PO SCH
[2023-11-03 08:18] LABS: Glucose,Whole Blood 140 mg/dL (70-110)
[2023-11-03 08:43] VITALS: RESP 16; TEMP 96.1
--- NOTE | 2023-11-03 11:14 | IR ---
EXAMINATION TYPE: IR angio abdominal w runoff DATE OF EXAM: 11/03/2023 FLUOROSCOPY right leg pain, 19.1min fluoro, 64.9Gycm2. 341 images provided.
--- NOTE | 2023-11-03 12:02 | P.OP ---
Date of Procedure: 11/03/23 Preoperative Diagnosis: 1: Iliac artery occlusive disease. 2: Bilateral femoral artery occlusive disease. 3: Dry gangrenous changes bilateral feet secondary to #1 and #2 above. Postoperative Diagnosis: 1: Occluded right common iliac artery. 2: High-grade left common femoral artery stenosis. 3: Multi segment in bilateral SFA stenosis. 4: Bilateral tibial artery occlusive disease. 5: Dry gangrenous changes bilateral feet secondary to above. Procedure(s) Performed: 1: Ultrasound-guided cannulation common femoral artery bilaterally. 2: Abdominal aortogram with runoffs. 3: Selective cannulation contralateral iliac artery. 4: Right iliac angiogram. Anesthesia: local (With IV sedation for moderate conscious sedation) Surgeon: Lázaro Preciado Estimated Blood Loss (ml): 25 IV fluids (ml): 0 Pathology: none sent Condition: stable Disposition: no change Indications for Procedure: Patient is an 82-year-old female who presented with dry gangrenous changes of the great toe right foot. She underwent CT angiography imaging of the abdominal, pelvic and lower extremity vessels. This demonstrated multi segmental arterial occlusive disease. To improve the arterial flow to the lower extremities patient is offered catheter angiogram with attempt and of percutaneous intervention. The procedure, risk and benefits were discussed with the patient. All questions were answered to patient satisfaction. Consent form signed. Description of Procedure: Patient was brought to the special procedure suite. Both groins were sterilely prepped and draped in the usual manner. Patient did receive both Versed and fentanyl for moderate conscious sedation via the intravenous route. Utilizing ultrasound the left common femoral artery was identified. 1% Xylocaine was utilized for local anesthesia the tissues overlying this area. Through this anesthetized area and with the aid of ultrasound a micropuncture needle was utilized to cannulate the artery. Once cannulated a Softip guidewire is advanced into the artery. The needle was withdrawn and a micropuncture sheath and dilator advanced over the guidewire. The guidewire and dilator were withdrawn. A 0.035 inch guidewire was advanced in the micropuncture sheath was withdrawn and exchanged for 6-Kosovan sheath. The pigtail and guidewire catheter combination were utilized together to place the catheter at the L1-L2 interspace. Abdominal area gram was performed. Sub sequently the cath was pulled down to the level aortic bifurcation pelvic imaging as well as a femoral, popliteal and tibial artery imaging was performed. With the finding of a high-grade/possibly occluded right common iliac artery the pigtail catheter was manipulated across the aortic bifurcation and a guidewire was advanced down into the iliac artery. Multiple catheter and guidewire combinations were used in combination in an attempt to cross this lesion. This was not successful. Subsequently a 6-Kosovan sheath was placed from the right femoral artery approach in a manner as described for the previously placed sheath. Once again multiple catheter and guidewire combinations were utilized to attempt cross the lesion. This was unsuccessful. With the above findings noted the guidewire and catheter was withdrawn and each sheath was withdrawn. Pressure was held at each groin site until all evidence of bleeding ceased. Patient tolerated procedure well and was taken to the outpatient area in satisfactory and stable condition. Findings: Aorta: The abdominal aorta is patent. High-grade right renal artery stenosis is noted. The left renal artery is patent. The aorta itself is tapered distally although patent. Right iliac artery: The common iliac artery is heavily calcified and subtotally 20 totally occluded. Distal to that the internal and external iliac segments are unremarkable. Right femoral artery: The common and profundus are patent with some degree of stenosis of the common femoral artery. The right superficial femoral artery demonstrates heavily calcified multisegmental stenotic areas. Right popliteal artery: Is patent. Right tibial angiography demonstrates the anterior tibial artery to be patent with significant disease involving both the peroneal and posterior tibial arterial segments. Left iliac artery: There is stenosis of the proximal segment of the iliac artery otherwise the remainder of the common, internal and external iliac arteries are unremarkable. Left common femoral artery: Demonstrates a high-grade heavily calcified stenosis. Left femoral artery: Is patent although similar to the contralateral side multisegmental heavily calcified stenotic areas are identified. Left popliteal artery: Is patent with some areas of stenosis. Left tibial arteries: Multisegmented disease is identified at all 3 vessels. Total moderate conscious sedation time: 69 minutes. Total contrast volume used: 84 ML's of Isovue 370. Plan - Discharge Summary Discharge Rx Participant: No New Discharge Prescriptions: No Action Anastrozole [Arimidex] 1 mg PO QAM Ondansetron Odt [Zofran ODT] 4 mg PO Q8HR PRN #10 tab PRN Reason: Nausea Cyanocobalamin [Vitamin B-12] 500 mcg PO QAM Morphine Sulfate [Morphine Sulfate 10 MG/5 ML] 5 mg PO Q6H PRN PRN Reason: Pain Pantoprazole Sodium [Protonix] 40 mg PO BID Omeprazole 40 mg PO BID hydrALAZINE HCL [Apresoline] 25 mg PO BID amLODIPine [Norvasc] 2.5 mg PO QAM Pregabalin [Lyrica] 50 mg PO BID 3 Days #6 cap Atorvastatin [Lipitor] 40 mg PO HS #30 tab Acetaminophen Tab [Tylenol] 650 mg PO Q6HR PRN #20 tab PRN Reason: Mild Pain Or Fever > 100.5 hydroCHLOROthiazide 12.5 mg PO QAM Nitrzc 1 tab PO QAM Alendronate Sodium [Fosamax] 70 mg PO MO polyethylene glycoL 3350 [Miralax] 17 gm PO DAILY PRN PRN Reason: Constipation Clopidogrel [Plavix] 75 mg PO QAM Cholecalciferol [Vitamin D3 (25 Mcg = 1000 Iu)] 50 mcg PO QAM traMADol HCl [Ultram] 50 mg PO BID 5 Days #10 tab Gabapentin [Neurontin] 100 mg PO BID Discharge Medication List Alendronate Sodium [Fosamax] 70 mg PO MO 11/16/22 [History] Anastrozole [Arimidex] 1 mg PO QAM 11/16/22 [History] Ondansetron Odt [Zofran ODT] 4 mg PO Q8HR PRN #10 tab 12/03/22 [Rx] Cyanocobalamin [Vitamin B-12] 500 mcg PO QAM 12/04/22 [History] Cholecalciferol [Vitamin D3 (25 Mcg = 1000 Iu)] 50 mcg PO QAM 10/02/23 [History] Clopidogrel [Plavix] 75 mg PO QAM 10/02/23 [History] Morphine Sulfate [Morphine Sulfate 10 MG/5 ML] 5 mg PO Q6H PRN 10/02/23 [History] Omeprazole 40 mg PO BID 10/02/23 [History] Pantoprazole Sodium [Protonix] 40 mg PO BID 10/02/23 [History] amLODIPine [Norvasc] 2.5 mg PO QAM 10/02/23 [History] hydrALAZINE HCL [Apresoline] 25 mg PO BID 10/02/23 [History] polyethylene glycoL 3350 [Miralax] 17 gm PO DAILY PRN 10/02/23 [History] Acetaminophen Tab [Tylenol] 650 mg PO Q6HR PRN #20 tab 10/06/23 [Rx] Atorvastatin [Lipitor] 40 mg PO HS #30 tab 10/06/23 [Rx] Pregabalin [Lyrica] 50 mg PO BID 3 Days #6 cap 10/06/23 [Rx] traMADol HCl [Ultram] 50 mg PO BID 5 Days #10 tab 10/06/23 [Rx] Gabapentin [Neurontin] 100 mg PO BID 10/28/23 [History] Nitrzc 1 tab PO QAM 10/28/23 [History] hydroCHLOROthiazide 12.5 mg PO QAM 10/28/23 [History] Follow up Appointment(s)/Referral(s): Lázaro Preciado DO [Doctor of Osteopathic Medicine] - 11/20/23 9:45 am
--- NOTE | 2023-11-03 14:01 | P.CRDCN ---
History of Present Illness Consult date: 11/03/23 Reason for Consult (text): Preoperative clearance History of present illness: History of present illness: This is an 82 year old female patient with Dr. 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 We have been asked to evaluate the patient for preop clearance. Patient had a recent hospitalization in middle of September 2023 and she was seen by cardiology at that time. Patient underwent Lexiscan stress test at that time revealed no reversible ischemia. Echocardiogram revealed EF 55%, moderate concentric left hypertrophy, grade 1 diastolic dysfunction. No significant valvular dysfunction. Patient is seen today in the [facility] status post abdominal aortogram with runoffs that revealed occluded right common iliac artery. High-grade left common femoral artery stenosis. Multi-segments in the bilateral SFA stenosis. Bilateral tibial artery occlusive disease. Dry gangrene changes in the bilateral feet secondary to above. Blood pressure readings have been elevated [id number]/[id number]/80. Home cardiac medications: Norvasc 2.5 mg daily, Lipitor 40 mg at bedtime, Plavix 75 mg daily, hydralazine 25 mg twice daily, hydrochlorothiazide 12.5 mg daily Review Of Systems: At the time of my exam: CONSTITUTIONAL: Denies fever or chills. CARDIOVASCULAR: Denies chest pain, Denies shortness of breath, no orthopnea, PND or palpitations. RESPIRATORY: Denies cough. GASTROINTESTINAL: Denies abdominal pain, diarrhea, constipation, nausea or vomiting. MUSCULOSKELETAL: Denies myalgias. NEUROLOGIC: Denies numbness, tingling or weakness. ENDOCRINE: Denies fatigue, weight change, polydipsia or polyurina. GENITOURINARY: Denies burning, hematuria or urgency with micturation. HEMATOLOGIC: Denies history of anemia or bleeding. Physical examination: Gen: This is an 82 year old female resting on the stretcher and appears to be in no acute distress. VS: reviewed HEENT: Head is atraumatic, normocephalic. Pupils equal, round. Sclerae is anicteric. NECK: Supple. No JVD. LUNGS: Clear to auscultation. No wheezes or rhonchi. No intercostal retractions. HEART: Regular rate and rhythm. Systolic murmur. ABDOMEN: Soft No tenderness. EXTREMITIES: No pedal edema. No calf tenderness. NEUROLOGICAL: Patient is awake, alert and oriented x3. Assessment: Peripheral artery disease Coronary artery disease status post stenting Hypertension Hyperlipidemia Diabetes Gangrene of the right great toe Plan: Patient is at acceptable risk for surgical intervention which is planned for next week. Following surgery, patient will have follow-up with Dr. Bond 1-2 weeks. Thank you kindly for this consultation. Nurse practitioner note has been reviewed, I agree with documented findings and plan of care. Patient was seen and examined. Past Medical History Past Medical History: Coronary Artery Disease (CAD), Cancer, Diabetes Mellitus, Hyperlipidemia, Hypertension, Myocardial Infarction (SD), Renal Disease, Vascular Disorder Additional Past Medical History / Comment(s): Current large R great toe sore and small L great toe sore, NIDDM type II/diet controlled, one functioning kidney, R breast cancer/lumpectomy with radiation/oral treatment Last Myocardial Infarction Date:: 1989 History of Any Multi-Drug Resistant Organisms: None Reported Past Surgical History: Appendectomy, Heart Catheterization With Stent, Tonsillectomy, Tubal Ligation Additional Past Surgical History / Comment(s): 2 cardiac stents 2007, 02/2023 aortic vascular stent per patient, Past Anesthesia/Blood Transfusion Reactions: No Reported Reaction Additional Past Anesthesia/Blood Transfusion Reaction / Comment(s): DIFFICULTY STARTING IVS Date of Last Stent Placement:: 1989 Smoking Status: Former smoker - Past Family History Mother Family Medical History: Diabetes Mellitus, Myocardial Infarction (SD), Vascular Disorder Father Family Medical History: Diabetes Mellitus, Myocardial Infarction (SD) Medications and Allergies Home Medications Medication Instructions Recorded Confirmed Type Alendronate Sodium [Fosamax] 70 mg PO MO 11/16/22 11/03/23 History Anastrozole [Arimidex] 1 mg PO QAM 11/16/22 11/03/23 History Ondansetron Odt [Zofran ODT] 4 mg PO Q8HR PRN #10 tab 12/03/22 10/28/23 Rx Cyanocobalamin [Vitamin B-12] 500 mcg PO QAM 12/04/22 11/03/23 History Cholecalciferol [Vitamin D3 (25 50 mcg PO QAM 10/02/23 11/03/23 History Mcg = 1000 Iu)] Clopidogrel [Plavix] 75 mg PO QAM 10/02/23 10/28/23 History Morphine Sulfate [Morphine Sulfate 5 mg PO Q6H PRN 10/02/23 11/03/23 History 10 MG/5 ML] Omeprazole 40 mg PO BID 10/02/23 11/03/23 History Pantoprazole Sodium [Protonix] 40 mg PO BID 10/02/23 11/03/23 History amLODIPine [Norvasc] 2.5 mg PO QAM 10/02/23 11/03/23 History hydrALAZINE HCL [Apresoline] 25 mg PO BID 10/02/23 11/03/23 History polyethylene glycoL 3350 [Miralax] 17 gm PO DAILY PRN 10/02/23 10/28/23 History Acetaminophen Tab [Tylenol] 650 mg PO Q6HR PRN #20 tab 10/06/23 11/03/23 Rx Atorvastatin [Lipitor] 40 mg PO HS #30 tab 10/06/23 11/03/23 Rx Pregabalin [Lyrica] 50 mg PO BID 3 Days #6 cap 10/06/23 11/03/23 Rx traMADol HCl [Ultram] 50 mg PO BID 5 Days #10 tab 10/06/23 11/03/23 Rx Gabapentin [Neurontin] 100 mg PO BID 10/28/23 11/03/23 History Nitrzc 1 tab PO QAM 10/28/23 11/03/23 History hydroCHLOROthiazide 12.5 mg PO QAM 10/28/23 11/03/23 History Allergies Allergy/AdvReac Type Severity Reaction Status Date / Time Penicillins Allergy "Passes Verified 10/28/23 13:46 out" Physical Exam Vitals: Vital Signs Temp Pulse Resp BP BP Pulse Ox 11/03/23 08:20 96.1 F L 71 16 184/97 203/80 98 Intake and Output 11/02/23 11/03/23 11/03/23 22:59 06:59 14:59 Intake Total 400 Balance 400 Intake: IV 400 Other: Weight 69.5 kg Results Current Medications Generic Name Dose Route Start Last Admin Trade Name Freq PRN Reason Stop Dose Admin Alprazolam 0.25 mg 11/03/23 05:48 Alprazolam 0.25 Mg Tab PO 12/03/23 05:49 Q4HR PRN Mild Anxiety Aspirin 325 mg 11/03/23 05:48 Aspirin 325 Mg Tab PO 11/04/23 05:49 ONCE PRN Pre-Op Heparin Sodium (Porcine) 10, 1,001 mls @ 999 mls/hr 11/03/23 05:48 000 unit/ Sodium Chloride IRRIGATION 11/04/23 05:49 ONCE PRN INTRA-OP Heparin Sodium (Porcine) 2,500 250.5 mls @ 250 mls/hr 11/03/23 05:48 unit/ Sodium Chloride IRRIGATION 11/04/23 05:49 ONCE PRN INTRA-OP Sodium Chloride 1,000 ml/ IV 1,000 mls @ 68.039 mls/hr 11/03/23 05:48 11/03/23 08:30 Solution IV 11/03/23 20:29 400 mls .[id number] ONE Administration 1 ML/KG/HR Zolpidem Tartrate 5 mg 11/03/23 05:48 Zolpidem 5 Mg Tab PO 12/03/23 05:49 HS PRN Insomnia Intake and Output 11/02/23 11/03/23 11/03/23 22:59 06:59 14:59 Intake Total 400 Balance 400 Intake: IV 400 Other: Weight 69.5 kg Patient Weight 11/04/23 06:59 Weight 69.5 kg
[2023-11-03 17:55] VITALS: BP 151/65; PULSE 60
== END ==
LOC: CATHCVL 07:46
PROVIDERS: ATTEND Surgery
DX: E11.52 Type 2 diabetes mellitus with diabetic peripheral angiopathy with gangrene (principal); E78.5 Hyperlipidemia, unspecified; I10 Essential (primary) hypertension; I25.10 Atherosclerotic heart disease of native coronary artery without angina pectoris; I25.2 Old myocardial infarction; I70.203 Unspecified atherosclerosis of native arteries of extremities, bilateral legs; Z79.02 Long term (current) use of antithrombotics/antiplatelets; Z79.899 Other long term (current) drug therapy; Z85.3 Personal history of malignant neoplasm of breast; Z87.891 Personal history of nicotine dependence; Z88.0 Allergy status to penicillin
CPT/HCPCS: 36246; 75625; 75716; 76937; C1894 ×2; C1769 ×8; C1887; J2250; J2001; Q9967; J3010

== ENCOUNTER 2024-02-04 09:05 | Inpatient (IN) | payer BC ==
--- NOTE | 2024-02-04 09:14 | ED ---
Weakness HPI - General Chief complaint: Weakness Stated complaint: Diarrhea Time Seen by Provider: 02/04/24 09:07 Source: patient, EMS, RN notes reviewed Mode of arrival: EMS Limitations: no limitations - History of Present Illness Initial comments: This is an 83-year-old female who presents to the emergency department for diarrhea and generalized weakness. States that 3 days ago she developed diarrhea with persistent nausea and vomiting. Symptoms improved over the next couple of days, however today the diarrhea started again. She has only gone on ce, but states that it was very soft. She has generalized lower abdominal cramping as well. She does not currently feel nauseous. Denies any coughing, congestion, chest pain, or shortness of breath, but states that she does feel very weak and has no energy. Denies any sick contacts, fevers, or chills. She does have problems with blood flow to her extremities and a scheduled to have the great toe on her right foot amputated in [address] Preciado. Complaint: generalized weakness - Related Data Home Medications Medication Instructions Recorded Confirmed Alendronate Sodium [Fosamax] 70 mg PO MO 11/16/22 02/04/24 Anastrozole [Arimidex] 1 mg PO DAILY 11/16/22 02/04/24 Clopidogrel [Plavix] 75 mg PO DAILY 10/02/23 02/04/24 amLODIPine [Norvasc] 2.5 mg PO DAILY 10/02/23 02/04/24 hydrALAZINE HCL [Apresoline] 25 mg PO BID 10/02/23 02/04/24 hydroCHLOROthiazide 12.5 mg PO DAILY 10/28/23 02/04/24 Aspirin EC [Ecotrin Low Dose] 81 mg PO DAILY 02/04/24 02/04/24 Pregabalin [Lyrica] 50 mg PO HS 02/04/24 02/04/24 Previous Rx's Medication Instructions Recorded Atorvastatin [Lipitor] 40 mg PO HS #30 tab 10/06/23 Allergies Allergy/AdvReac Type Severity Reaction Status Date / Time Penicillins Allergy "Passes Verified 02/04/24 12:17 out" Review of Systems ROS Statement: Those systems with pertinent positive or pertinent negative responses have been documented in the HPI. ROS Other: All systems not noted in ROS Statement are negative. Past Medical History Past Medical History: Coronary Artery Disease (CAD), Cancer, Diabetes Mellitus, Hyperlipidemia, Hypertension, Myocardial Infarction ([place]), Renal Disease, Vascular Disorder Additional Past Medical History / Comment(s): Current large R great toe sore and small L great toe sore, NIDDM type II/diet controlled, one functioning kidney, R breast cancer/lumpectomy with radiation/oral treatment Last Myocardial Infarction Date:: 1989 History of Any Multi-Drug Resistant Organisms: None Reported Past Surgical History: Appendectomy, Heart Catheterization With Stent, Tonsillectomy, Tubal Ligation Additional Past Surgical History / Comment(s): 2 cardiac stents 2007, 02/2023 aortic vascular stent per patient, Past Anesthesia/Blood Transfusion Reactions: No Reported Reaction Additional Past Anesthesia/Blood Transfusion Reaction / Comment(s): DIFFICULTY STARTING IVS Date of Last Stent Placement:: 1989 Smoking Status: Former smoker - Past Family History Mother Family Medical History: Diabetes Mellitus, Myocardial Infarction ([place]), Vascular Disorder Father Family Medical History: Diabetes Mellitus, Myocardial Infarction ([place]) General Exam Limitations: no limitations General appearance: alert, in no apparent distress Head exam: Present: atraumatic, normocephalic, normal inspection Respiratory exam: Present: normal lung sounds bilaterally. Absent: respiratory distress, wheezes, rales, rhonchi, stridor Cardiovascular Exam: Present: regular rate, normal rhythm, normal heart sounds. Absent: systolic murmur, diastolic murmur, rubs, gallop, clicks GI/Abdominal exam: Present: soft, normal bowel sounds. Absent: distended, tenderness, guarding, rebound, rigid Neurological exam: Present: alert, oriented X3, CN II-XII intact Psychiatric exam: Present: normal affect, normal mood Skin exam: Present: warm, dry, intact, normal color. Absent: rash Course Vital Signs 02/04/24 02/04/24 02/04/24 09:07 10:12 12:30 Temperature 97.3 F L Pulse Rate 67 70 67 Respiratory 18 18 18 Rate Blood Pressure 185/70 180/65 176/54 O2 Sat by Pulse 97 96 96 Oximetry 02/04/24 14:08 Temperature Pulse Rate 56 L Respiratory 18 Rate Blood Pressure 161/78 O2 Sat by Pulse 97 Oximetry Medical Decision Making - Medical Decision Making This is an 83 year old female who presents to the emergency department for weakness. Was pt. sent in by a medical professional or institution? @ -No Did you speak to anyone other than the patient for history? @ -No Did you review nursing and triage notes? @ -Yes, and I agree, it is accurate with regards to the patient's symptoms. Were old charts reviewed? @ -No Differential Diagnosis? @ -Differential Weakness: Hypoglycemia, shock, sepsis, hyponatremia, anemia, infection, CO, ETOH, adverse medicine reaction, overdose, stroke, this is not meant to be an all-inclusive list. EKG interpreted by me (3pts min.)? @ -EKG interpreted by me demonstrating the following: Sinus rhythm. Ventricular rate 63 bpm, [place] interval 187 ms, QRS duration 136 ms, QTc 482 ms. X-rays interpreted by me (1pt min.)? @ -Chest x-ray obtained. My interpretation identifies linear changes of the lungs. CT interpreted by me (1pt min.)? @ -CT scan of the abdomen and pelvis obtained. My interpretation identifies no evidence of bowel wall thickening or free air. U/S interpreted by me (1pt. min.)? @ -Not obtained What testing was considered but not performed? (CT, X-rays, U/S, labs)? Why? @ -None What meds were considered but not given? Why? @ -None Did you discuss the management of the patient with other professionals? @ -Yes, Dr. Maloney, who accepts the patient for admission. Did you reconcile home meds? @ -Yes - Plavix on hold per the patient for upcoming surgery Was smoking cessation discussed for >3mins.? @ -No Was critical care preformed (if so, how long)? @ -No Were there social determinants of health that impacted care today? How? (Homelessness, low income, unemployed, alcoholism, drug addiction, transportation, low edu. Level, literacy, decrease access to med. care, custodial, rehab)? @ -No Was there de-escalation of care discussed even if they declined? (Discuss DNR or withdrawal of care, Hospice)? @ -No What co-morbidities impacted this encounter? (DM, HTN, Smoking, COPD, CAD, Cancer, CVA, Hep., AIDS, mental health diagnosis, sleep apnea, morbid obesity)? @ -CAD, HTN, HLD, DM, renal disease Was patient admitted / discharged? @ -Admitted. Lab work fairly unremarkable. COVID, influenza, and RSV testing were negative. Urinalysis consistent with infection. Chest x-ray states that they favor bilateral areas of atelectasis or scarring over pneumonia based on subsegmental linear changes involving the lungs. Patient denies any chest pain or shortness of breath. CT scan of the abdomen and pelvis obtained. She was noted to have cholelithiasis, however there were no acute processes noted. We did get the patient up to ambulate with her walker and she started to feel very dizzy. She was also unable to go very far before having to sit back down in the bed. Given the patient's progressive weakness and UTI, especially given her upcoming surgery, she was admitted to medicine for further management. Blood and urine cultures were obtained and she was given 2 g of ceftriaxone. Undiagnosed new problem with uncertain prognosis? @ -None Drug Therapy requiring intensive monitoring for toxicity (Heparin, Nitro, I nsulin, Cardizem)? @ -None Were any procedures done? @ -None Diagnosis/symptom? @ -UTI, weakness Acute, or Chronic, or Acute on Chronic? @ -Acute Uncomplicated (without systemic symptoms) or Complicated (systemic symptoms)? @ -Complicated Side effects of treatment? @ -None Exacerbation, Progression, or Severe Exacerbation] @ -Not applicable Poses a threat to life or bodily function? @ -Yes This case was discussed in detail with the attending ED physician, Dr. Ratliff. Presentation, findings, and treatment plan discussed in detail as well. - Lab Data Result diagrams: 02/04/24 09:24 02/04/24 09:24 Lab Results 02/04/24 02/04/24 02/04/24 Range/Units 09:24 09:24 09:24 WBC 10.2 (3.8-10.6) k/uL RBC 3.52 L (3.80-5.40) m/uL Hgb 10.7 L (11.4-16.0) gm/dL Hct 32.4 L (34.0-46.0) % MCV 91.9 (80.0-100.0) fL MCH 30.4 (25.0-35.0) pg MCHC 33.0 (31.0-37.0) g/dL RDW 14.0 (11.5-15.5) % Plt Count 260 (150-450) k/uL MPV 8.7 Neutrophils % 55 % Lymphocytes % 35 % Monocytes % 6 % Eosinophils % 2 % Basophils % 1 % Neutrophils # 5.7 (1.3-7.7) k/uL Lymphocytes # 3.6 (1.0-4.8) k/uL Monocytes # 0.6 (0-1.0) k/uL Eosinophils # 0.2 (0-0.7) k/uL Basophils # 0.1 (0-0.2) k/uL Hypochromasia Slight PT 10.5 (10.0-12.5) sec INR 1.0 (<1.2) APTT 22.4 (22.0-30.0) sec Sodium (137-145) mmol/L Potassium (3.5-5.1) mmol/L Chloride (98-107) mmol/L Carbon Dioxide (22-30) mmol/L Anion Gap mmol/L BUN (7-17) mg/dL Creatinine (0.52-1.04) mg/dL Est GFR (CKD-EPI)AfAm (>60 ml/min/1.73 sqM) Est GFR (CKD-EPI)NonAf (>60 ml/min/1.73 sqM) Glucose (74-99) mg/dL Plasma Lactic Acid João (0.7-2.0) mmol/L Calcium (8.4-10.2) mg/dL Magnesium (1.6-2.3) mg/dL Total Bilirubin (0.2-1.3) mg/dL AST (14-36) U/L ALT (4-34) U/L Alkaline Phosphatase (38-126) U/L Troponin I (0.000-0.034) ng/mL Total Protein (6.3-8.2) g/dL Albumin (3.5-5.0) g/dL Lipase (23-300) U/L Urine Color Colorless Urine Appearance Cloudy H (Clear) Urine pH 6.0 (5.0-8.0) Ur Specific [place] 1.015 (1.001-1.035) Urine Protein Trace H (Negative) Urine Glucose (UA) Negative (Negative) Urine Ketones Negative (Negative) Urine Blood Negative (Negative) Urine Nitrite Positive H (Negative) Urine Bilirubin Negative (Negative) Urine Urobilinogen <2.0 (<2.0) mg/dL Ur Leukocyte Esterase Moderate H (Negative) Urine RBC 2 (0-5) /hpf Urine WBC 15 H (0-5) /hpf Ur Squamous Epith Cells 6 H (0-4) /hpf Urine Bacteria Many H (None) /hpf Influenza Type A (PCR) (Not Detectd) Influenza Type B (PCR) (Not Detectd) RSV (PCR) (Not Detectd) SARS-CoV-2 (PCR) (Not Detectd) 02/04/24 02/04/24 02/04/24 Range/Units 09:24 09:24 09:24 WBC (3.8-10.6) k/uL RBC (3.80-5.40) m/uL Hgb (11.4-16.0) gm/dL Hct (34.0-46.0) % MCV (80.0-100.0) fL MCH (25.0-35.0) pg MCHC (31.0-37.0) g/dL RDW (11.5-15.5) % Plt Count (150-450) k/uL MPV Neutrophils % % Lymphocytes % % Monocytes % % Eosinophils % % Basophils % % Neutrophils # (1.3-7.7) k/uL Lymphocytes # (1.0-4.8) k/uL Monocytes # (0-1.0) k/uL Eosinophils # (0-0.7) k/uL Basophils # (0-0.2) k/uL Hypochromasia PT (10.0-12.5) sec INR (<1.2) APTT (22.0-30.0) sec Sodium 138 (137-145) mmol/L Potassium 3.5 (3.5-5.1) mmol/L Chloride 109 H (98-107) mmol/L Carbon Dioxide 20 L (22-30) mmol/L Anion Gap 9 mmol/L BUN 22 H (7-17) mg/dL Creatinine 1.00 (0.52-1.04) mg/dL Est GFR (CKD-EPI)AfAm 60 (>60 ml/min/1.73 sqM) Est GFR (CKD-EPI)NonAf 52 (>60 ml/min/1.73 sqM) Glucose 128 H (74-99) mg/dL Plasma Lactic Acid João 1.5 (0.7-2.0) mmol/L Calcium 8.9 (8.4-10.2) mg/dL Magnesium 1.9 (1.6-2.3) mg/dL Total Bilirubin 0.4 (0.2-1.3) mg/dL AST 22 (14-36) U/L ALT 16 (4-34) U/L Alkaline Phosphatase 72 (38-126) U/L Troponin I <0.012 (0.000-0.034) ng/mL Total Protein 6.6 (6.3-8.2) g/dL Albumin 3.4 L (3.5-5.0) g/dL Lipase 113 (23-300) U/L Urine Color Urine Appearance (Clear) Urine pH (5.0-8.0) Ur Specific [place] (1.001-1.035) Urine Protein (Negative) Urine Glucose (UA) (Negative) Urine Ketones (Negative) Urine Blood (Negative) Urine Nitrite (Negative) Urine Bilirubin (Negative) Urine Urobilinogen (<2.0) mg/dL Ur Leukocyte Esterase (Negative) Urine RBC (0-5) /hpf Urine WBC (0-5) /hpf Ur Squamous Epith Cells (0-4) /hpf Urine Bacteria (None) /hpf Influenza Type A (PCR) (Not Detectd) Influenza Type B (PCR) (Not Detectd) RSV (PCR) (Not Detectd) SARS-CoV-2 (PCR) (Not Detectd) 02/04/24 Range/Units 09:24 WBC (3.8-10.6) k/uL RBC (3.80-5.40) m/uL Hgb (11.4-16.0) gm/dL Hct (34.0-46.0) % MCV (80.0-100.0) fL MCH (25.0-35.0) pg MCHC (31.0-37.0) g/dL RDW (11.5-15.5) % Plt Count (150-450) k/uL MPV Neutrophils % % Lymphocytes % % Monocytes % % Eosinophils % % Basophils % % Neutrophils # (1.3-7.7) k/uL Lymphocytes # (1.0-4.8) k/uL Monocytes # (0-1.0) k/uL Eosinophils # (0-0.7) k/uL Basophils # (0-0.2) k/uL Hypochromasia PT (10.0-12.5) sec INR (<1.2) APTT (22.0-30.0) sec Sodium (137-145) mmol/L Potassium (3.5-5.1) mmol/L Chloride (98-107) mmol/L Carbon Dioxide (22-30) mmol/L Anion Gap mmol/L BUN (7-17) mg/dL Creatinine (0.52-1.04) mg/dL Est GFR (CKD-EPI)AfAm (>60 ml/min/1.73 sqM) Est GFR (CKD-EPI)NonAf (>60 ml/min/1.73 sqM) Glucose (74-99) mg/dL Plasma Lactic Acid João (0.7-2.0) mmol/L Calcium (8.4-10.2) mg/dL Magnesium (1.6-2.3) mg/dL Total Bilirubin (0.2-1.3) mg/dL AST (14-36) U/L ALT (4-34) U/L Alkaline Phosphatase (38-126) U/L Troponin I (0.000-0.034) ng/mL Total Protein (6.3-8.2) g/dL Albumin (3.5-5.0) g/dL Lipase (23-300) U/L Urine Color Urine Appearance (Clear) Urine pH (5.0-8.0) Ur Specific [place] (1.001-1.035) Urine Protein (Negative) Urine Glucose (UA) (Negative) Urine Ketones (Negative) Urine Blood (Negative) Urine Nitrite (Negative) Urine Bilirubin (Negative) Urine Urobilinogen (<2.0) mg/dL Ur Leukocyte Esterase (Negative) Urine RBC (0-5) /hpf Urine WBC (0-5) /hpf Ur Squamous Epith Cells (0-4) /hpf Urine Bacteria (None) /hpf Influenza Type A (PCR) Not Detected (Not Detectd) Influenza Type B (PCR) Not Detected (Not Detectd) RSV (PCR) Not Detected (Not Detectd) SARS-CoV-2 (PCR) Not Detected (Not Detectd) - Radiology Data Radiology results: report reviewed, image reviewed Disposition Clinical Impression: UTI (urinary tract infection), Weakness Disposition: ADMITTED IP TO THIS [facility] Time of Disposition: 12:29
[2024-02-04] MEDS: SODIUM CHLORIDE 0.9% 1,000 ML IV STA (09:27)
[2024-02-04 09:41] LABS: Basophils # (A) 0.1 k/uL (0-0.2); Basophils % (A) 1 %; Eosinophils # (A) 0.2 k/uL (0-0.7); Eosinophils % (A) 2 %; HCT 32.4 % (34.0-46.0); HGB 10.7 gm/dL (11.4-16.0); Hypochromasia Slight; Lymphocytes # (A) 3.6 k/uL (1.0-4.8); Lymphocytes % (A) 35 %; MCH 30.4 pg (25.0-35.0); MCV 91.9 fL (80.0-100.0); Mean Platelet Volume 8.7; Monocytes # (A) 0.6 k/uL (0-1.0); Monocytes % (A) 6 %; Neutrophils # (A) 5.7 k/uL (1.3-7.7); Neutrophils % (A) 55 %; Platelet Count 260 k/uL (150-450); RBC 3.52 m/uL (3.80-5.40); WBC 10.2 k/uL (3.8-10.6)
[2024-02-04 09:48] LABS: Partial Thromboplastin Time 22.4 sec (22.0-30.0); Prothrombin Time 10.5 sec (10.0-12.5)
--- NOTE | 2024-02-04 09:56 | XR ---
EXAMINATION TYPE: XR chest 2V DATE OF EXAM: 02/04/2024 COMPARISON: 11/16/2022 TECHNIQUE: PA and lateral views submitted. HISTORY: Weakness FINDINGS: The lungs are clear and there is no pneumothorax, pleural effusion, or focal pneumonia. Heart size normal and no overt failure. Osseous structures demonstrate hypertrophic and degenerative changes of the spine. Diffuse osteopenia. Arthropathy of the shoulders. Atherosclerotic change aorta. Postsurgic al changes right axilla. Subsegmental linear changes involving the lungs. Correlate for COPD. IMPRESSION: 1. Favor bilateral areas of atelectasis or scarring over pneumonia.
[2024-02-04 09:58] LABS: ALT 16 U/L (4-34); AST 22 U/L (14-36); African American GFR (CKD) 60 (>60 ml/min/1.73 sqM); Albumin 3.4 g/dL (3.5-5.0); Alkaline Phosphatase 72 U/L (38-126); Anion Gap 9 mmol/L; Blood Urea Nitrogen 22 mg/dL (7-17); Calcium 8.9 mg/dL (8.4-10.2); Carbon Dioxide 20 mmol/L (22-30); Chloride 109 mmol/L (98-107); Glucose 128 mg/dL (74-99); Lipase 113 U/L (23-300); Magnesium 1.9 mg/dL (1.6-2.3); Non-African American GFR(CKD) 52 (>60 ml/min/1.73 sqM); Potassium 3.5 mmol/L (3.5-5.1); Sodium 138 mmol/L (137-145); Total Bilirubin 0.4 mg/dL (0.2-1.3); Total Protein 6.6 g/dL (6.3-8.2)
[2024-02-04] MEDS: SODIUM CHLORIDE 0.9% 500 ML 500 ML IV STA (11:16)
--- NOTE | 2024-02-04 11:16 | CT ---
EXAMINATION TYPE: CT abdomen pelvis w con DATE OF EXAM: 02/04/2024 COMPARISON: To 723 INDICATION: Lower abdominal pain, nausea, vomiting and diarrhea. DLP: 832 mGycm, Automated exposure control for dose reduction was used. CONTRAST: 80ml mL of Isovue 300. Study performed without Oral Contrast TECHNIQUE: Axial images were obtained from above the diaphragm to the pubic rami in the axial plane a t 5 mm thick sections. Reconstructed images are reviewed on the computer in the coronal plane. FINDINGS: Limited CT sections are obtained the lung bases. The lung bases are clear. CT ABDOMEN: Liver: Scattered small hypodensities within the liver likely on the basis of hepatic cysts. Spleen: Normal Pancreas: Normal Adrenal glands: The adrenal glands are normal. Gallbladder: Multiple gallstones are present. Kidneys: Right kidney is atrophic. Left kidney appears normal. No discrete masses are identified. Vas cular calcification appears to be present bilaterally.. No hydronephrosis is present. No cysts are present. Delayed images were obtained through the kidneys, which remain unremarkable. Aorta: Vascular calcification is within the aorta. Axillary left femoral bypass appears to be presen t. Femorofemoral bypass on the left right appears to be present. Inferior vena cava: Normal. CT PELVIS: Loops of bowel within the abdomen and pelvis are normal. There are loops of bowel which are incom pletely distended or lack oral contrast limiting their evaluation. Appendix: Not visualized. Urinary bladder: Normal. Genitourinary structures: Uterus contains dense calcifications compatible fibroids. Adnexa appear nor mal Osseous structures: No suspicious lytic or sclerotic lesions. IMPRESSION: 1. Cholelithiasis. 2. Atrophic right kidney. 3. No suspicious abnormality within the bowel. 4. Left axillary femoral bypass and Femoral-Femoral bypass.
[2024-02-04 11:58] LABS: Appearance,Urine Cloudy (Clear); Bacteria,Urine Many /hpf; Bilirubin,Urine Negative (Negative); Blood,Urine Negative (Negative); Color,Urine Colorless; Glucose,Urine (UA) Negative (Negative); Ketones,Urine Negative (Negative); Leukocyte Esterase,Urine Moderate (Negative); Nitrite,Urine Positive (Negative); Protein,Urine Trace (Negative); RBC,Urine 2 /hpf (0-5); Specific Gravity,Urine 1.015 (1.001-1.035); Squamous Epithelial Cell,Urine 6 /hpf (0-4); Urobilinogen,Urine <2.0 mg/dL (<2.0); WBC,Urine 15 /hpf (0-5)
[2024-02-04] MEDS ORDERED: ONDANSETRON 4 MG/2 ML VIAL IVP PRN (12:27)
[2024-02-04] MEDS ORDERED: NALOXONE 0.4 MG/ML 1 ML VIAL IV PRN (12:27)
[2024-02-04] MEDS ORDERED: ACETAMINOPHEN TAB 325 MG TAB PO PRN (12:27)
[2024-02-04] MEDS: amLODIPine 5 MG TAB PO STA (12:37)
[2024-02-04] MEDS: hydroCHLOROthiazide 12.5 MG CAP PO STA (12:38)
[2024-02-04] MEDS: HYDROcodone/APAP 5-325MG 1 EACH TAB PO PRN (12:49)
[2024-02-04] MEDS: SODIUM CHLORIDE 0.9% 1,000 ML IV SCH (12:51)
[2024-02-04] MEDS ORDERED: hydrALAZINE HCL 20 MG/ML 1 ML VIAL IVP PRN (16:21)
[2024-02-04 16:23] LABS: Glucose,Whole Blood 102 mg/dL (70-110)
[2024-02-04] MEDS: amLODIPine 10 MG TAB PO SCH (17:15)
[2024-02-04] MEDS: metroNIDAZOLE-NS PMX 500 MG in SALINE 1 100ML.BAG IVPB SCH (17:15)
--- NOTE | 2024-02-04 19:20 | P.HPIM ---
History of Present Illness This is a pleasant 83 years old female with multiple medical problems. Presents because of nausea vomiting and diarrhea. Patient states she has diarrhea about once per day for the last few days. She complains from abdominal pain about 3/10, on admission it was 4-5/10 felt like pressure nonspecific nonradiating Patient also has poor appetite. Patient was trying to get up today when she felt dizzy and very weak so she decided to come to emergency room No chest pain no dyspnea The patient has evidence of right toe ischemic injury as she is supposed to follow-up with Dr. Esparza on Friday for amputation, she was placed on aspirin and Plavix on hold for preop preparation No headache or numbness. Patient vitals are stable CBC is unremarkable except for mildly low hemoglobin 10.7, INR 1.0, creatinine 1.0. Liver enzymes not elevated, lipase within the reference range. Urinalysis showed evidence of UTI and patient was started on ceftriaxone in the emergency room Influenza A and type B, RSV, SARS (coronavirus) are undetected CT of the abdomen pelvis showing multiple gallstones with atrophic right kidney, no bowel abnormality. Left axillary femoral bypass and femorofemoral bypass Patient also started on ceftriaxone and normal saline 75 mL/h Past Medical History Past Medical History: Coronary Artery Disease (CAD), Cancer, Diabetes Mellitus, Hyperlipidemia, Hypertension, Myocardial Infarction ([place]), Renal Disease, Vascular Disorder Additional Past Medical History / Comment(s): Current large R great toe sore and small L great toe sore, NIDDM type II/diet controlled, one functioning kidney, R breast cancer/lumpectomy with radiation/oral treatment Last Myocardial Infarction Date:: 1989 History of Any Multi-Drug Resistant Organisms: None Reported Past Surgical History: Appendectomy, Heart Catheterization With Stent, Tonsillectomy, Tubal Ligation Additional Past Surgical History / Comment(s): 2 cardiac stents 2007, 02/2023 aortic vascular stent per patient, Past Anesthesia/Blood Transfusion Reactions: No Reported Reaction Additional Past Anesthesia/Blood Transfusion Reaction / Comment(s): DIFFICULTY STARTING IVS Date of Last Stent Placement:: 1989 Smoking Status: Former smoker - Past Family History Mother Family Medical History: Diabetes Mellitus, Myocardial Infarction ([place]), Vascular Disorder Father Family Medical History: Diabetes Mellitus, Myocardial Infarction ([place]) Medications and Allergies Home Medications Medication Instructions Recorded Confirmed Type Alendronate Sodium [Fosamax] 70 mg PO MO 11/16/22 02/04/24 History Anastrozole [Arimidex] 1 mg PO DAILY 11/16/22 02/04/24 History Clopidogrel [Plavix] 75 mg PO DAILY 10/02/23 02/04/24 History amLODIPine [Norvasc] 2.5 mg PO DAILY 10/02/23 02/04/24 History hydrALAZINE HCL [Apresoline] 25 mg PO BID 10/02/23 02/04/24 History Atorvastatin [Lipitor] 40 mg PO HS #30 tab 10/06/23 02/04/24 Rx hydroCHLOROthiazide 12.5 mg PO DAILY 10/28/23 02/04/24 History Aspirin EC [Ecotrin Low Dose] 81 mg PO DAILY 02/04/24 02/04/24 History Pregabalin [Lyrica] 50 mg PO HS 02/04/24 02/04/24 History Allergies Allergy/AdvReac Type Severity Reaction Status Date / Time Penicillins Allergy "Passes Verified 02/04/24 12:17 out" Physical Exam Vitals: Vital Signs Temp Pulse Pulse Resp BP BP Pulse Ox 02/04/24 15:53 99.2 F 61 183/65 98 02/04/24 15:36 70 18 169/78 96 02/04/24 14:08 56 L 18 161/78 97 02/04/24 12:30 67 18 176/54 96 02/04/24 10:12 70 18 180/65 96 02/04/24 09:07 97.3 F L 67 18 185/70 97 Intake and Output 02/04/24 02/04/24 02/04/24 06:59 14:59 22:59 Other: Weight 68.039 kg Results CBC & Chem 7: 02/04/24 09:24 02/04/24 09:24 Labs: Abnormal Lab Results - Last 24 Hours (Table) 02/04/24 02/04/24 02/04/24 Range/Units 09:24 09:24 09:24 RBC 3.52 L (3.80-5.40) m/uL Hgb 10.7 L (11.4-16.0) gm/dL Hct 32.4 L (34.0-46.0) % Chloride 109 H (98-107) mmol/L Carbon Dioxide 20 L (22-30) mmol/L BUN 22 H (7-17) mg/dL Glucose 128 H (74-99) mg/dL Albumin 3.4 L (3.5-5.0) g/dL Urine Appearance Cloudy H (Clear) Urine Protein Trace H (Negative) Urine Nitrite Positive H (Negative) Ur Leukocyte Esterase Moderate H (Negative) Urine WBC 15 H (0-5) /hpf Ur Squamous Epith Cells 6 H (0-4) /hpf Urine Bacteria Many H (None) /hpf Assessment and Plan Assessment: Acute gastroenteritis, with nausea vomiting and diarrhea Right gallbladder sludge, about acute gallbladder disease Acute urinary tract infection Acute right big toe ischemic injury. Patient is scheduled for with Dr. Casanova on this coming Thursday 02/08 Peripheral arterial disease with history of right lower extremity wound. Also patient with history with femorofemoral stent on the left lower extremity Chronic kidney disease stage III Plan: Continue with antibiotic, ceftriaxone and add Flagyl Follow-up culture Continue with gentle hydration, however blood pressure is on the high side, lower fluid to 50 mL/h. Check liver ultrasound Check for C. difficile in the stool, check stool studies Consult vascular surgery Dr. Waite For her right toe injury. Hold aspirin and Plavix for vascular surgery team recommendation for s planned surgery Labs and medication were reviewed.. Continue same treatment. Continue with symptomatic treatment. Resume home medication. Monitor labs and vitals. DVT and GI prophylaxis. Further recommendations as per clinical course of the patient DVT prophylaxis: Subcutaneous heparin GI Prophylaxis: Pepcid PT/OT: Pending Prognosis is guarded
[2024-02-04] MEDS: hydrALAZINE HCL 25 MG TAB PO SCH (20:40)
[2024-02-04] MEDS: HEPARIN SODIUM,PORCINE 5,000 UNIT/ML 1 ML VIAL SQ SCH (20:40)
[2024-02-04] MEDS: ATORVASTATIN 40 MG TAB PO SCH (20:40)
[2024-02-04] MEDS: PREGABALIN 50 MG CAP PO SCH (20:40)
[2024-02-04 21:01] LABS: Glucose,Whole Blood 118 mg/dL (70-110)
[2024-02-04] MEDS: MELATONIN 5 MG TABLET PO PRN (22:42)
[2024-02-05 05:33] LABS: Glucose,Whole Blood 96 mg/dL (70-110)
--- NOTE | 2024-02-05 08:30 | US ---
EXAMINATION TYPE: US liver DATE OF EXAM: 02/05/2024 COMPARISON: 02/03 CT CLINICAL INDICATION: Female, 83 years old with history of gall stone; CT yesterday shows gallstones TECHNIQUE: Multiple sonographic images of the right upper quadrant are obtained. FINDINGS: EXAM MEASUREMENTS: Liver Length: 16.8 cm Gallbladder Wall: 0.1 cm CBD: 0.7 cm Right Kidney: 7.9x3.4x4.0 cm BUFFER MACHINE NOTES: Pancreas: Obscured by bowel gas Liver: upper limits in size, wnl as visualized otherwise Gallbladder: several small gallstones noted within similar to 12/03/2022 CT Evidence for sonographic Rausch's sign: No CBD: upper limits Right Kidney: atrophic with calcified vessels exam limited by bowel gas IMPRESSION: 1. Cholelithiasis no CT evidence of cholecystitis. Common bile duct is the upper limits of normal hayley suring 7 m. 2. Echogenic and atrophic right kidney correlate for chronic medical renal disease.
[2024-02-05] MEDS ORDERED: ASPIRIN 81 MG PO SCH (09:00)
[2024-02-05] MEDS ORDERED: CLOPIDOGREL 75 MG TAB PO SCH (09:00)
[2024-02-05] MEDS ORDERED: amLODIPine 2.5 MG TAB PO SCH (09:00)
[2024-02-05 09:03] LABS: BUN/Creat Ratio 13.67 Ratio (12.00-20.00); Blood Urea Nitrogen 12.3 mg/dL (9.0-27.0); Glucose 89 mg/dL (70-110)
[2024-02-05 09:04] LABS: Calcium 7.5 mg/dL (8.7-10.3); Carbon Dioxide 20.6 mmol/L (21.6-31.8); Chloride 107 mmol/L (96-109); Sodium 142 mmol/L (135-145)
[2024-02-05 09:06] LABS: Basophils # (A) 0.06 X 10*3/uL (0.00-0.10); Basophils % (A) 0.9 %; Eosinophils # (A) 0.25 X 10*3/uL (0.04-0.35); Eosinophils % (A) 3.7 %; HCT 26.9 % (37.2-46.3); HGB 8.5 g/dL (12.0-15.0); Lymphocytes # (A) 2.65 X 10*3/uL (0.90-5.00); Lymphocytes % (A) 38.8 %; MCH 29.3 pg (27.0-32.0); MCHC 31.6 g/dL (32.0-37.0); MCV 92.8 FL (80.0-97.0); Mean Platelet Volume 11.1 FL (9.5-12.2); Monocytes # (A) 0.54 X 10*3/uL (0.20-1.00); Monocytes % (A) 7.9 %; NRBC Per 100 WBC 0 X 10*3/uL (0.00-0.01); Neutrophils % (A) 48.3 %; Platelet Count 236 X 10*3/uL (140-440); RDW 13.7 % (11.5-14.5); WBC 6.83 X 10*3/uL (4.50-10.00)
--- NOTE | 2024-02-05 09:25 | P.GSCN ---
History of Present Illness Consult date: 02/05/24 Reason for Consult: Right big toe gangrene Requesting physician: Petr E Sheet History of present illness: This is a pleasant 83-year-old female well-known to vascular surgery and Dr. Waite. She has a history of peripheral arterial disease with previous aortoiliac percutaneous intervention which was done last year at [facility]. She has a past medical history including diabetes mellitus, hypertension, coronary artery disease with stent, and bilateral gangrene great toes. Patient presented to the emergency department with complaints of nausea vomiting and diarrhea. States that she has had diarrhea once a day for the last few days duration. Some abdominal discomfort and states that she felt very weak and had decreased appetite and intake. She came to the emergency department for further evaluation. She is seen and examined this morning and is sitting up in bed eating her breakfast. She states she is feeling much better. She was diagnosed with a urinary tract infection started on ceftriaxone. She had a CT of the abdomen and pelvis reporting cholelithiasis, atrophic right kidney no suspicious abnormality within the bowel left axillary femoral bypass and femoral-femoral bypass. She has outpatient surgery scheduled for right great toe amputation on 02/09/[address] Preciado. Does state that she has pain in both her left and right great toes. She has been following with wound care. She currently denies any shortness of breath, chest pain, abdominal pain, nausea or vomiting. She has been afebrile. Review of Systems A 14 point review systems was completed all pertinent positives and negatives as stated in the HPI. Past Medical History Past Medical History: Coronary Artery Disease (CAD), Cancer, Diabetes Mellitus, Hyperlipidemia, Hypertension, Myocardial Infarction (AR), Renal Disease, Vascular Disorder Additional Past Medical History / Comment(s): Current large R great toe sore and small L great toe sore, NIDDM type II/diet controlled, one functioning kidney, R breast cancer/lumpectomy with radiation/oral treatment Last Myocardial Infarction Date:: 1989 History of Any Multi-Drug Resistant Organisms: None Reported Past Surgical History: Appendectomy, Heart Catheterization With Stent, Tonsillectomy, Tubal Ligation Additional Past Surgical History / Comment(s): 2 cardiac stents 2007, 02/2023 aortic vascular stent per patient, Past Anesthesia/Blood Transfusion Reactions: No Reported Reaction Additional Past Anesthesia/Blood Transfusion Reaction / Comm: DIFFICULTY STARTING IVS Date of Last Stent Placement:: 1989 Smoking Status: Former smoker - Past Family History Mother Family Medical History: Diabetes Mellitus, Myocardial Infarction (AR), Vascular Disorder Father Family Medical History: Diabetes Mellitus, Myocardial Infarction (AR) Medications and Allergies Home Medications Medication Instructions Recorded Confirmed Type Alendronate Sodium [Fosamax] 70 mg PO MO 11/16/22 02/04/24 History Anastrozole [Arimidex] 1 mg PO DAILY 11/16/22 02/04/24 History Clopidogrel [Plavix] 75 mg PO DAILY 10/02/23 02/04/24 History amLODIPine [Norvasc] 2.5 mg PO DAILY 10/02/23 02/04/24 History hydrALAZINE HCL [Apresoline] 25 mg PO BID 10/02/23 02/04/24 History Atorvastatin [Lipitor] 40 mg PO HS #30 tab 10/06/23 02/04/24 Rx hydroCHLOROthiazide 12.5 mg PO DAILY 10/28/23 02/04/24 History Aspirin EC [Ecotrin Low Dose] 81 mg PO DAILY 02/04/24 02/04/24 History Pregabalin [Lyrica] 50 mg PO HS 02/04/24 02/04/24 History Allergies Allergy/AdvReac Type Severity Reaction Status Date / Time Penicillins Allergy "Passes Verified 02/04/24 12:17 out" Surgical - Exam Vital Signs Temp Pulse Resp BP Pulse Ox 97.3 F L 67 18 185/70 97 02/04/24 09:07 02/04/24 09:07 02/04/24 09:07 02/04/24 09:07 02/04/24 09:07 General appearance: The patient is alert, oriented, appears in no acute distress. HET: Head is normocephalic and atraumatic. Neck: Supple. Heart: Regular. Lungs: Equal expansion, normal respiratory effort. Abdomen: Soft, nontender, nondistended. Extremities: Right great toe wound down to the tendon, left great toe with dry gangrene. Bilateral extremities warm to the touch with good capillary refill. Neurological: No focal deficits. Strength and sensation are grossly intact. Results - Labs 02/05/24 05:09 02/05/24 05:09 Abnormal Lab Results - Last 24 Hours (Table) 02/04/24 02/04/24 02/04/24 Range/Units 09:24 09:24 09:24 RBC 3.52 L (3.80-5.40) m/uL Hgb 10.7 L (11.4-16.0) gm/dL Hct 32.4 L (34.0-46.0) % Chloride 109 H (98-107) mmol/L Carbon Dioxide 20 L (22-30) mmol/L BUN 22 H (7-17) mg/dL Glucose 128 H (74-99) mg/dL POC Glucose (mg/dL) (70-110) mg/dL Albumin 3.4 L (3.5-5.0) g/dL Urine Appearance Cloudy H (Clear) Urine Protein Trace H (Negative) Urine Nitrite Positive H (Negative) Ur Leukocyte Esterase Moderate H (Negative) Urine WBC 15 H (0-5) /hpf Ur Squamous Epith Cells 6 H (0-4) /hpf Urine Bacteria Many H (None) /hpf 02/04/24 Range/Units 20:59 RBC (3.80-5.40) m/uL Hgb (11.4-16.0) gm/dL Hct (34.0-46.0) % Chloride (98-107) mmol/L Carbon Dioxide (22-30) mmol/L BUN (7-17) mg/dL Glucose (74-99) mg/dL POC Glucose (mg/dL) 118 H (70-110) mg/dL Albumin (3.5-5.0) g/dL Urine Appearance (Clear) Urine Protein (Negative) Urine Nitrite (Negative) Ur Leukocyte Esterase (Negative) Urine WBC (0-5) /hpf Ur Squamous Epith Cells (0-4) /hpf Urine Bacteria (None) /hpf Diabetes panel 02/04/24 Range/Units 09:24 Sodium 138 (137-145) mmol/L Potassium 3.5 (3.5-5.1) mmol/L Chloride 109 H (98-107) mmol/L Carbon Dioxide 20 L (22-30) mmol/L BUN 22 H (7-17) mg/dL Creatinine 1.00 (0.52-1.04) mg/dL Glucose 128 H (74-99) mg/dL Calcium 8.9 (8.4-10.2) mg/dL AST 22 (14-36) U/L ALT 16 (4-34) U/L Alkaline Phosphatase 72 (38-126) U/L Total Protein 6.6 (6.3-8.2) g/dL Albumin 3.4 L (3.5-5.0) g/dL Calcium panel 02/04/24 Range/Units 09:24 Calcium 8.9 (8.4-10.2) mg/dL Albumin 3.4 L (3.5-5.0) g/dL Pituitary panel 02/04/24 Range/Units 09:24 Sodium 138 (137-145) mmol/L Potassium 3.5 (3.5-5.1) mmol/L Chloride 109 H (98-107) mmol/L Carbon Dioxide 20 L (22-30) mmol/L BUN 22 H (7-17) mg/dL Creatinine 1.00 (0.52-1.04) mg/dL Glucose 128 H (74-99) mg/dL Calcium 8.9 (8.4-10.2) mg/dL Adrenal panel 02/04/24 Range/Units 09:24 Sodium 138 (137-145) mmol/L Potassium 3.5 (3.5-5.1) mmol/L Chloride 109 H (98-107) mmol/L Carbon Dioxide 20 L (22-30) mmol/L BUN 22 H (7-17) mg/dL Creatinine 1.00 (0.52-1.04) mg/dL Glucose 128 H (74-99) mg/dL Calcium 8.9 (8.4-10.2) mg/dL Total Bilirubin 0.4 (0.2-1.3) mg/dL AST 22 (14-36) U/L ALT 16 (4-34) U/L Alkaline Phosphatase 72 (38-126) U/L Total Protein 6.6 (6.3-8.2) g/dL Albumin 3.4 L (3.5-5.0) g/dL Assessment and Plan Assessment: 1. Nausea vomiting and diarrhea 2. Urinary tract infection 3. Gangrene right great toe with plan for scheduled outpatient amputation on 02/09/2024 4. Gangrene left great toe, healing 5. History of peripheral arterial disease 6. Coronary artery disease status post stent 7. Diabetes mellitus Plan: Patient was already scheduled for right great toe amputation on 02/09/2024 as an outpatient. No plans on changing date. Patient may resume aspirin and Plavix and does not need to be held for her amputation. Continue medical management per primary medical team. Sirisha is cleared from vascular surgery for discharge and instructed to return as scheduled on 02/09/2024 for outpatient right great toe amputation. Patient verbalizes understanding. Thank you for this consultation. The impression and plan of care has been dictated as directed. I performed a history and examination of this patient, discussed the same with the dictator. I agree with the dictator's note ,documented as a scribe. Any additional findings or plans will be noted.
[2024-02-05] MEDS: PANTOPRAZOLE 40 MG/10 ML VIAL IV SCH ×2 (10:14→22:51)
[2024-02-05] MEDS: ANASTROZOLE 1 MG TAB PO SCH (10:17)
[2024-02-05] MEDS: hydroCHLOROthiazide 12.5 MG CAP PO SCH (10:17)
[2024-02-05] MEDS: CLOPIDOGREL 75 MG TAB PO SCH (10:41)
[2024-02-05] MEDS: ASPIRIN 81 MG PO SCH (10:41)
[2024-02-05] MEDS ORDERED: Potassium Replacement Protocol 1 EACH MISC MISCELLANE PRN ×2 (10:57→11:09)
[2024-02-05 11:49] LABS: Glucose,Whole Blood 134 mg/dL (70-110)
[2024-02-05] MEDS: POTASSIUM CHLORIDE ER 20 MEQ TAB.ER PO SCH (12:31)
[2024-02-05 16:17] LABS: % Iron Saturation 6.68 (12.00-45.00); Ferritin 23.3 ng/mL (10.0-291.0)
[2024-02-05 16:52] LABS: Glucose,Whole Blood 151 mg/dL (70-110)
[2024-02-05 20:55] LABS: Glucose,Whole Blood 204 mg/dL (70-110)
--- NOTE | 2024-02-05 22:09 | P.PN ---
Subjective This is a pleasant 83 years old female with multiple medical problems. Presents because of nausea vomiting and diarrhea. Patient states she has diarrhea about once per day for the last few days. She complains from abdominal pain about 3/10, on admission it was 4-5/10 felt like pressure nonspecific nonradiating Patient also has poor appetite. Patient was trying to get up today when she felt dizzy and very weak so she decided to come to emergency room No chest pain no dyspnea The patient has evidence of right toe ischemic injury as she is supposed to follow-up with Dr. Esparza on Friday for amputation, she was placed on aspirin and Plavix on hold for preop preparation No headache or numbness. Patient vitals are stable CBC is unremarkable except for mildly low hemoglobin 10.7, INR 1.0, creatinine 1.0. Liver enzymes not elevated, lipase within the reference range. Urinalysis showed evidence of UTI and patient was started on ceftriaxone in the emergency room Influenza A and type B, RSV, SARS (coronavirus) are undetected CT of the abdomen pelvis showing multiple gallstones with atrophic right kidney, no bowel abnormality. Left axillary femoral bypass and femorofemoral bypass Patient also started on ceftriaxone and normal saline 75 mL/h 02/05/2024 Patient awake alert lying in bed looks comfortable Patient reports improvement today regarding her abdominal symptoms. Her diarrhea has stopped, her abdomen pain is improved, no generalized tenderness. She tolerates diet well. She remains on ceftriaxone and urine culture growing gram-negative bacilli However her hemoglobin dropped 10.7 down to 8.5 We did full workup today, B12 and folate levels are acceptable however she has evidence of iron deficiency anemia Occult blood in the stool is requested and is pending Remains on ceftriaxone and IV Flagyl at normal side at 50 mL/h Vascular surgery cleared the patient for discharge regarding her ischemic toe and recommended to resume aspirin and Plavix, no need to be held for surgery. If there is more evidence of bleeding or more drop in hemoglobin will consider holding this medication. Discussed with staff. Discussed with vascular surgery team Review of systems CONSTITUTIONAL: No fever, no malaise, no fatigue. HEENT: No recent visual problems or hearing problems. Denied any sore thro HEMATOLOGICAL: Denies any bleeding or petechiae. GENITOURINARY: Denies any burning micturition, frequency, or urgency. MUSCULOSKELETAL/RHEUMATOLOGICAL: Denies any joint pain, swelling, or any muscle pain. ENDOCRINE: Denies any polyuria or polydipsia. Active Medications Generic Name Dose Route Start Last Admin Trade Name Freq PRN Reason Stop Dose Admin Acetaminophen 650 mg 02/04/24 12:27 Acetaminophen Tab 325 Mg Tab PO Q6HR PRN Mild Pain or Fever > 100.5 Hydrocodone Bitart/Acetaminophen 1 each 02/04/24 12:27 02/05/24 08:20 Hydrocodone/Apap 5-325mg 1 Each Tab PO 1 each Q4HR PRN Administration Moderate Pain (Scale 4 to 6) Amlodipine Besylate 10 mg 02/04/24 16:45 02/05/24 10:17 Amlodipine 10 Mg Tab PO 10 mg DAILY TIM Administration Anastrozole 1 mg 02/05/24 09:00 02/05/24 10:17 Anastrozole 1 Mg Tab PO 1 mg DAILY TIM Administration Aspirin 81 mg 02/05/24 09:00 02/05/24 10:41 Aspirin 81 Mg PO 81 mg DAILY TIM Administration Atorvastatin Calcium 40 mg 02/04/24 21:00 02/05/24 20:19 Atorvastatin 40 Mg Tab PO 40 mg HS TIM Administration Clopidogrel Bisulfate 75 mg 02/05/24 09:00 02/05/24 10:41 Clopidogrel 75 Mg Tab PO 75 mg DAILY TIM Administration Heparin Sodium (Porcine) 5,000 unit 02/04/24 21:00 02/05/24 20:19 Heparin Sodium,Porcine 5,000 Unit/Ml 1 Ml Vial SQ 5,000 unit Q12HR TIM Administration Hydralazine HCl 25 mg 02/04/24 21:00 02/05/24 20:19 Hydralazine Hcl 25 Mg Tab PO 25 mg BID TIM Administration Hydralazine HCl 10 mg 02/04/24 16:21 Hydralazine Hcl 20 Mg/Ml 1 Ml Vial IVP Q4HR PRN Blood Pressure - High Hydrochlorothiazide 12.5 mg 02/05/24 09:00 02/05/24 10:17 Hydrochlorothiazide 12.5 Mg Cap PO 12.5 mg DAILY TIM Administration Sodium Chloride 1,000 mls @ 50 mls/hr 02/04/24 12:30 02/05/24 08:15 Saline 0.9% IV Not Given .Q20H TIM Ceftriaxone Sodium 1 gm/ 50 mls @ 100 mls/hr 02/05/24 09:00 02/05/24 10:16 Sodium Chloride IVPB 100 mls/hr DAILY TIM Administration Protocol Metronidazole 500 mg/ IV 100 mls @ 100 mls/hr 02/04/24 16:45 02/05/24 16:05 Solution IVPB 100 mls/hr Q8HR TIM Administration Protocol Melatonin 5 mg 02/04/24 16:44 02/04/24 22:42 Melatonin 5 Mg Tablet PO 5 mg HS PRN Administration Insomnia Miscellaneous Information 1 each 02/05/24 10:57 Potassium Replacement Protocol 1 Each Misc MISCELLANE DAILY PRN Per Protocol Protocol Miscellaneous Information 1 each 02/05/24 11:09 Potassium Replacement Protocol 1 Each Misc MISCELLANE DAILY PRN Per Protocol Protocol Naloxone HCl 0.2 mg 02/04/24 12:27 Naloxone 0.4 Mg/Ml 1 Ml Vial IV Q2M PRN Opioid Reversal Non-Formulary Medication 70 mg 02/09/24 09:00 Alendronate Sodium [Fosamax] PO MO TIM Ondansetron HCl 4 mg 02/04/24 12:27 Ondansetron 4 Mg/2 Ml Vial IVP Q8HR PRN Nausea And Vomiting Pantoprazole Sodium 40 mg 02/05/24 09:00 02/05/24 10:14 Pantoprazole 40 Mg/10 Ml Vial IV 40 mg DAILY TIM Administration Pregabalin 50 mg 02/04/24 21:00 02/05/24 20:19 Pregabalin 50 Mg Cap PO 50 mg HS TIM Administration Objective - Vital Signs Vital signs: Vital Signs Temp 98.3 F 02/05/24 06:52 Pulse 55 L 02/05/24 06:52 Resp 17 02/05/24 06:52 BP 116/66 02/05/24 06:52 Pulse Ox 97 02/05/24 06:52 FiO2 Intake & Output 02/04/24 02/05/24 02/05/24 18:59 06:59 18:59 Intake Total 240 960 Output Total 700 Balance 240 260 Weight 68.039 kg Intake: Oral 240 960 Output: Urine 700 Other: Voiding Method External Catheter External Catheter # Voids 2 - Exam GENERAL: The patient is alert and oriented x3, not in any acute distress. Well developed, well nourished. HEENT: Pupils are round and equally reacting to light. EOMI. No scleral icterus. No conjunctival pallor. Normocephalic, atraumatic. No pharyngeal erythema. No t hyromegaly. CARDIOVASCULAR: S1 and S2 present. No murmurs, rubs, or gallops. PULMONARY: Chest is clear to auscultation, no wheezing , no crackles. ABDOMEN: Soft, nontender, nondistended, normoactive bowel sounds. No palpable organomegaly. MUSCULOSKELETAL: No joint swelling or deformity. -EXTREMITIES: No cyanosis, clubbing, or pedal edema. Right great toe ischemic changes with some gangrene, stable NEUROLOGICAL: Gross neurological examination did not reveal any focal deficits. SKIN: No rashes. no petechiae. - Labs CBC & Chem 7: 02/05/24 05:09 02/05/24 05:09 Labs: Abnormal Lab Results - Last 24 Hours (Table) 02/04/24 02/05/24 02/05/24 Range/Units 20:59 05:09 05:09 RBC 2.90 L (4.10-5.20) X 10*6/uL Hgb 8.5 L (12.0-15.0) g/dL Hct 26.9 L (37.2-46.3) % MCHC 31.6 L (32.0-37.0) g/dL Potassium 3.0 L (3.5-5.5) mmol/L Carbon Dioxide 20.6 L (21.6-31.8) mmol/L Anion Gap 14.40 H (4.00-12.00) mmol/L POC Glucose (mg/dL) 118 H (70-110) mg/dL Calcium 7.5 L (8.7-10.3) mg/dL 02/05/24 Range/Units 11:48 RBC (4.10-5.20) X 10*6/uL Hgb (12.0-15.0) g/dL Hct (37.2-46.3) % MCHC (32.0-37.0) g/dL Potassium (3.5-5.5) mmol/L Carbon Dioxide (21.6-31.8) mmol/L Anion Gap (4.00-12.00) mmol/L POC Glucose (mg/dL) 134 H (70-110) mg/dL Calcium (8.7-10.3) mg/dL Microbiology - Last 24 Hours (Table) 02/04/24 12:16 Urine Culture - Preliminary Urine,Clean Catch Gram Neg Bacilli Assessment and Plan Assessment: Acute urinary tract infection Iron deficiency anemia Acute gastroenteritis, with nausea vomiting and diarrhea. Could be reactive secondary to above versus infectious Right gallbladder sludge, no evidence of acute gallbladder disease Acute right big toe ischemic injury. Patient is scheduled for with Dr. Casanova on this coming Thursday 02/08 Peripheral arterial disease with history of right lower extremity wound. Also patient with history with femorofemoral stent on the left lower extremity Chronic kidney disease stage III Plan: Check occult blood in the stool. Monitor hemoglobin closely. Start iron replacement therapy Continue with antibiotic, ceftriaxone and add Flagyl Follow-up culture Continue with gentle hydration, 50 mL/h. Of normal saline Consult vascular surgery Dr. Waite For her right toe injury. Hold aspirin and Plavix for vascular surgery team recommendation for s planned surgery Labs and medication were reviewed.. Continue same treatment. Continue with symptomatic treatment. Resume home medication. Monitor labs and vitals. DVT and GI prophylaxis. Further recommendations as per clinical course of the patient DVT prophylaxis: Discontinue subcutaneous heparin as patient is on dual antiplatelet therapy GI Prophylaxis: Patient was already on Protonix, we will increase it to twice daily PT/OT: Pending Prognosis is guarded
[2024-02-05] MEDS: FERROUS SULFATE 325 MG TAB PO SCH (22:51)
[2024-02-06] MEDS: POTASSIUM CHLORIDE ER 20 MEQ TAB.ER PO SCH ×2 (06:09→11:11)
[2024-02-06 06:53] LABS: Glucose,Whole Blood 107 mg/dL (70-110)
[2024-02-06 07:59] LABS: African American GFR (CKD) 80 (>60 ml/min/1.73 sqM); Anion Gap 9 mmol/L; Basophils # (A) 0.1 k/uL (0-0.2); Basophils % (A) 1 %; Blood Urea Nitrogen 9 mg/dL (7-17); Calcium 7.6 mg/dL (8.4-10.2); Carbon Dioxide 18 mmol/L (22-30); Chloride 110 mmol/L (98-107); Eosinophils # (A) 0.2 k/uL (0-0.7); Eosinophils % (A) 4 %; Glucose 111 mg/dL (74-99); Hypochromasia Slight; Lymphocytes # (A) 2.5 k/uL (1.0-4.8); Lymphocytes % (A) 41 %; MCHC 31.2 g/dL (31.0-37.0); Magnesium 1.8 mg/dL (1.6-2.3); Mean Platelet Volume 8.5; Monocytes # (A) 0.5 k/uL (0-1.0); Monocytes % (A) 8 %; Neutrophils # (A) 2.6 k/uL (1.3-7.7); Neutrophils % (A) 44 %; Non-African American GFR(CKD) 69 (>60 ml/min/1.73 sqM); Platelet Count 210 k/uL (150-450); RBC 3.11 m/uL (3.80-5.40); RDW 13.9 % (11.5-15.5); Sodium 137 mmol/L (137-145); WBC 6.1 k/uL (3.8-10.6)
--- NOTE | 2024-02-06 09:35 | P.PN ---
Subjective Progress Note Date: 02/06/24 Patient is seen and examined today as a follow-up. She states overall she is doing much better. No further nausea or vomiting no diarrhea. Denies any blood or black stool. She has been afebrile. Preliminary urine culture is positive for gram-negative bacilli. She is currently IV Rocephin and Flagyl. Yesterday patient was noted to have a drop in her hemoglobin and primary medical group ordered anemia workup. They are supplementing with oral iron. She does still report pain to bilateral great toes. Objective - Vital Signs Vital signs: Vital Signs Temp 98.3 F 02/06/24 07:26 Pulse 61 02/06/24 07:26 Resp 17 02/06/24 07:26 BP 158/62 02/06/24 07:26 Pulse Ox 97 02/06/24 07:26 FiO2 Intake & Output 02/05/24 02/06/24 02/06/24 18:59 06:59 18:59 Intake Total 1380 Output Total 400 100 Balance -400 1280 Intake: Oral 1380 Output: Urine 400 100 Other: Voiding Method External Catheter External Catheter # Voids 2 - Exam General appearance: The patient is alert, oriented, appears in no acute distress. HET: Head is normocephalic and atraumatic. Neck: Supple. Heart: Regular. Lungs: Equal expansion, normal respiratory effort. Abdomen: Soft, nontender, nondistended. Extremities: Right great toe wound with dressing in place, clean dry and intact. Left great toe with dry gangrene. Bilateral extremities warm to the touch with good capillary refill. Neurological: No focal deficits. Alert and oriented x 3. - Labs CBC & Chem 7: 02/06/24 07:29 02/06/24 07:29 Labs: Abnormal Lab Results - Last 24 Hours (Table) 02/05/24 02/05/24 02/05/24 Range/Units 05:09 11:48 16:51 RBC (3.80-5.40) m/uL Hgb (11.4-16.0) gm/dL Hct (34.0-46.0) % Potassium (3.5-5.1) mmol/L Chloride (98-107) mmol/L Carbon Dioxide (22-30) mmol/L Glucose (74-99) mg/dL POC Glucose (mg/dL) 134 H 151 H (70-110) mg/dL Calcium (8.4-10.2) mg/dL Iron 25 L (50-170) UG/DL % Saturation 6.68 L (12.00-45.00) Vitamin B12 1840.0 H (200.0-944.0) pg/mL 02/05/24 02/06/24 02/06/24 Range/Units 20:54 07:29 07:29 RBC 3.11 L (3.80-5.40) m/uL Hgb 9.0 L D (11.4-16.0) gm/dL Hct 29.0 L (34.0-46.0) % Potassium 3.0 L (3.5-5.1) mmol/L Chloride 110 H (98-107) mmol/L Carbon Dioxide 18 L (22-30) mmol/L Glucose 111 H (74-99) mg/dL POC Glucose (mg/dL) 204 H (70-110) mg/dL Calcium 7.6 L (8.4-10.2) mg/dL Iron (50-170) UG/DL % Saturation (12.00-45.00) Vitamin B12 (200.0-944.0) pg/mL Microbiology - Last 24 Hours (Table) 02/04/24 12:45 Blood Culture - Preliminary Blood 02/04/24 13:00 Blood Culture - Preliminary Blood 02/04/24 12:16 Urine Culture - Preliminary Urine,Clean Catch Gram Neg Bacilli Assessment and Plan Assessment: 1. Nausea vomiting and diarrhea 2. Urinary tract infection 3. Gangrene right great toe with plan for scheduled outpatient amputation on 02/09/2024 4. Gangrene left great toe, healing 5. History of peripheral arterial disease 6. Coronary artery disease status post stent 7. Diabetes mellitus Plan: Patient is already scheduled for right great toe amputation on 02/09/2024 as an outpatient. No plans on changing date. Patient may resume aspirin and Plavix and does not need to be held for her amputation. Continue medical management per primary medical team. Sirisha is cleared from vascular surgery for discharge and instructed to return as scheduled on 02/09/2024 for outpatient right great toe amputation if medically cleared. Patient verbalizes understanding. Otherwise if patient is going to remain hospitalized through the weekend please make n.p.o. after midnight. Thank you for this consultation. The impression and plan of care has been dictated as directed. I performed a history and examination of this patient, discussed the same with the dictator. I agree with the dictator's note ,documented as a scribe. Any additional findings or plans will be noted.
[2024-02-06] MEDS: MAGNESIUM SULFATE-D5W PMX 1 GM in DEXTROSE/WATER 1 100ML.BAG IVPB ONE (11:10)
[2024-02-06] MEDS: LACTULOSE 20 GM/30 ML CUP PO ONE (11:11)
[2024-02-06] MEDS: bisacodyL 10 MG SUPP RECTAL STA (11:11)
[2024-02-06 11:40] LABS: Glucose,Whole Blood 156 mg/dL (70-110)
[2024-02-06 16:21] VITALS: BP 138/59; PULSE 67; RESP 14; TEMP 98.2
[2024-02-09] MEDS ORDERED: NON FORMULARY DRUG (Alendronate Sodium [Fosamax] 70 MG Tablet) PO SCH (09:00)
== END 2024-02-06 16:37 | disposition home health service (06) | DRG 690 ==
LOC: EC 09:05 → 6NMEDSUR 12:11 → 4SSUR 13:54 → OBSVTOIN 02-05 06:13
PROVIDERS: ADMIT Internal Medicine; ATTEND Internal Medicine
PROC: 05HA33Z Insertion of Infusion Device into Left Brachial Vein, Percutaneous Approach (ICD-10-PCS; principal; 2024-02-05 17:35)
DX: N39.0 Urinary tract infection, site not specified (principal); A09 Infectious gastroenteritis and colitis, unspecified; E11.52 Type 2 diabetes mellitus with diabetic peripheral angiopathy with gangrene; E87.1 Hypo-osmolality and hyponatremia; K80.00 Calculus of gallbladder with acute cholecystitis without obstruction; I70.261 Atherosclerosis of native arteries of extremities with gangrene, right leg; B96.20 Unspecified Escherichia coli [E. coli] as the cause of diseases classified elsewhere; D50.9 Iron deficiency anemia, unspecified; E11.22 Type 2 diabetes mellitus with diabetic chronic kidney disease; I25.10 Atherosclerotic heart disease of native coronary artery without angina pectoris; E78.5 Hyperlipidemia, unspecified; N18.30 Chronic kidney disease, stage 3 unspecified; I12.9 Hypertensive chronic kidney disease with stage 1 through stage 4 chronic kidney disease, or unspecified chronic kidney disease; I25.2 Old myocardial infarction; K82.8 Other specified diseases of gallbladder; N26.1 Atrophy of kidney (terminal); Z79.02 Long term (current) use of antithrombotics/antiplatelets; Z79.811 Long term (current) use of aromatase inhibitors; Z79.82 Long term (current) use of aspirin; Z79.83 Long term (current) use of bisphosphonates; Z79.84 Long term (current) use of oral hypoglycemic drugs; Z79.899 Other long term (current) drug therapy; Z82.49 Family history of ischemic heart disease and other diseases of the circulatory system; Z95.5 Presence of coronary angioplasty implant and graft; Z85.3 Personal history of malignant neoplasm of breast; Z87.891 Personal history of nicotine dependence; Z98.51 Tubal ligation status; Z88.0 Allergy status to penicillin
CPT/HCPCS: 36410; 36415; 51702; 71046; 74177; 76705; 76937; 80048; 80053; 81001; 82272; 82607; 82728; 82746; 83540; 83550; 83605; 83630; 83690; 83735; 84132; 84484; 85025; 85610; 85730; 87040; 87045; 87046; 87077; 87086; 87186; 87636; 93005; 96361; 96365; 99285

== ENCOUNTER 2024-02-09 07:26 | Day surgery (SDC) | payer BC ==
[~2024-02-09 07:26] MED LIST changes: -ALPRAZolam 0.25 MG TAB PO PRN; -ASPIRIN 325 MG TAB PO PRN; -HEPARIN SODIUM,PORCINE (1 ML) 2,500 UNIT in SODIUM CHLORIDE 0.9% 250 ML IRRIGATION PRN; -HEPARIN SODIUM,PORCINE 10,000 UNIT in SODIUM CHLORIDE 0.9% 1,000 ML IRRIGATION PRN; +HEPARIN SODIUM,PORCINE 5,000 UNIT/ML 1 ML VIAL SQ PRN; -HYDROcodone/APAP 7.5-325MG 1 EACH TAB ONE; -HYDROcodone/APAP 7.5-325MG 1 EACH TAB PO ONE; +HYDROmorphone 0.5 MG/0.5 ML SYRINGE IVP PRN; -IOPAMIDOL-370 100ML BTL INJ ONE; +LIDOCAINE 1% (10MG/ML) FOR IV START INTRADERMA PRN; -LIDOCAINE 1% INJ 10MG/ML (30 ML VIAL-PF) SQ ONE; -MIDAZOLAM 2 MG/2 ML VIAL IVP ONE; -SODIUM CHLORIDE 0.9% 1,000 ML in EMPTY BAG 1 BAG IV ONE; -ZOLPIDEM 5 MG TAB PO PRN; -fentaNYL (PF) 50 MCG/1 ML VIAL IVP ONE; -fentaNYL (PF) 50 MCG/ML 2 ML AMP ONE; -hydrALAZINE HCL 25 MG TAB PO SCH
[2024-02-09] MEDS: LACTATED RINGERS 1,000 ML IV SCH (07:53)
[2024-02-09 08:05] LABS: Glucose,Whole Blood 136 mg/dL (70-110)
[2024-02-09] MEDS: ONDANSETRON 4 MG/2 ML VIAL IVP ONE (08:18)
[2024-02-09 08:23] VITALS: TEMP 97.3
[2024-02-09 08:27] LABS: HCT 30.8 % (34.0-46.0); HGB 9.7 gm/dL (11.4-16.0); MCH 29.2 pg (25.0-35.0); MCHC 31.6 g/dL (31.0-37.0); MCV 92.4 fL (80.0-100.0); Mean Platelet Volume 8.5; Platelet Count 247 k/uL (150-450); RBC 3.33 m/uL (3.80-5.40); RDW 14.2 % (11.5-15.5); WBC 9.2 k/uL (3.8-10.6)
[2024-02-09 08:42] LABS: African American GFR (CKD) 65 (>60 ml/min/1.73 sqM); Anion Gap 5 mmol/L; Blood Urea Nitrogen 9 mg/dL (7-17); Calcium 9.1 mg/dL (8.4-10.2); Carbon Dioxide 22 mmol/L (22-30); Chloride 108 mmol/L (98-107); Glucose 139 mg/dL (74-99); Non-African American GFR(CKD) 57 (>60 ml/min/1.73 sqM); Potassium 4.2 mmol/L (3.5-5.1); Sodium 135 mmol/L (137-145)
[2024-02-09] MEDS ORDERED: MIDAZOLAM 2 MG/2 ML VIAL ONE (11:40)
[2024-02-09] MEDS ORDERED: PROPOFOL 10 MG/ML 20 ML VIAL IV ONE (11:40)
[2024-02-09] MEDS ORDERED: fentaNYL (PF) 50 MCG/ML 2 ML AMP ONE (11:40)
[2024-02-09] MEDS: LIDOCAINE 1% INJ 10MG/ML (20 ML MDV) SQ ONE (12:29)
--- NOTE | 2024-02-09 12:33 | P.OP ---
Date of Procedure: 02/09/24 Preoperative Diagnosis: Osteomyelitis right great toe. Postoperative Diagnosis: Same. Procedure(s) Performed: Amputation right great toe at the proximal phalanges level. Anesthesia: MAC, local (1% Xylocaine.) Surgeon: Lázaro Preciado Estimated Blood Loss (ml): 5 Pathology: other (Right great toe) Condition: stable Disposition: no change Indications for Procedure: Patient is an 83-year-old female who had presented with ischemia of both upper lower extremities and was found to be suffering from severe aortoiliac occlusive disease. She did undergo axillobifemoral bypass graft with sabianist of good blood flow to both of her lower extremities. Her previously ischemic right great toe improved however the patient did develop a wound which tracked down to her joint space of the right great toe. It is felt that the patient would be best served with great toe amputation. The procedure, risks and benefits were discussed with the patient. All questions were answered to patient's satisfaction and consent form was signed. Description of Procedure: Patient was brought the op room placed in the supine position administered attended anesthesia delivered by the department anesthesiology. Patient received intravenously administered antibiotics in the perioperative phase for prophylactic therapy. The right foot was sterilely prepped and draped in usual manner. 1% Xylocaine was utilized for local anesthesia and a digital block fashion. S ubsequently a cup type incision was made and carried down through subcutaneous tissues. Bleeding was very good. The incision was deepened to the level of bone and utilizing a bone cutter the bone was transected. The specimen was sent to the department of pathology. [place] was utilized to take the bone back to allow for closure of the wound. Tendons were also taken back with sharp technique. The wound was irrigated. Hemostasis was assured. The wound was closed with 4-0 nylon suture placed in vertical mattress form. Appropriate dressing was applied. Patient tolerated the procedure well and was taken to the recovery area satisfactory and stable condition. Plan - Discharge Summary Discharge Rx Participant: No New Discharge Prescriptions: No Action Anastrozole [Arimidex] 1 mg PO DAILY hydrALAZINE HCL [Apresoline] 25 mg PO BID Atorvastatin [Lipitor] 40 mg PO HS #30 tab hydroCHLOROthiazide 12.5 mg PO DAILY Pregabalin [Lyrica] 50 mg PO HS Aspirin 81 mg PO DAILY tab Potassium Chloride 10 meq PO DAILY 3 Days #3 cap Alendronate Sodium [Fosamax] 70 mg PO MO Clopidogrel [Plavix] 75 mg PO DAILY Aspirin EC [Ecotrin Low Dose] 81 mg PO DAILY cefUROXime axetiL [Ceftin] 500 mg PO BID 3 Days #6 tab Ferrous Sulfate [Iron (65 MG Elemental)] 325 mg PO BID-W/MEALS 30 Days #60 tab amLODIPine [Norvasc] 10 mg PO DAILY #30 tab Acetaminophen Tab [Tylenol] 650 mg PO Q6HR PRN tab PRN Reason: Mild Pain Or Fever > 100.5 Pantoprazole Sodium [Protonix] 40 mg PO HS #30 tab Magnesium Oxide [Mag-Ox] 400 mg PO DAILY #3 tablet Discharge Medication List Alendronate Sodium [Fosamax] 70 mg PO MO 11/16/22 [History] Anastrozole [Arimidex] 1 mg PO DAILY 11/16/22 [History] Clopidogrel [Plavix] 75 mg PO DAILY 10/02/23 [History] hydrALAZINE HCL [Apresoline] 25 mg PO BID 10/02/23 [History] Atorvastatin [Lipitor] 40 mg PO HS #30 tab 10/06/23 [Rx] hydroCHLOROthiazide 12.5 mg PO DAILY 10/28/23 [History] Aspirin EC [Ecotrin Low Dose] 81 mg PO DAILY 02/04/24 [History] Pregabalin [Lyrica] 50 mg PO HS 02/04/24 [History] Acetaminophen Tab [Tylenol] 650 mg PO Q6HR PRN tab 02/06/24 [Rx] Aspirin 81 mg PO DAILY tab 02/06/24 [Rx] Ferrous Sulfate [Iron (65 MG Elemental)] 325 mg PO BID-W/MEALS 30 Days #60 tab 02/06/24 [Rx] Magnesium Oxide [Mag-Ox] 400 mg PO DAILY #3 tablet 02/06/24 [Rx] Pantoprazole Sodium [Protonix] 40 mg PO HS #30 tab 02/06/24 [Rx] Potassium Chloride 10 meq PO DAILY 3 Days #3 cap 02/06/24 [Rx] amLODIPine [Norvasc] 10 mg PO DAILY #30 tab 02/06/24 [Rx] cefUROXime axetiL [Ceftin] 500 mg PO BID 3 Days #6 tab 02/06/24 [Rx]
[2024-02-09 12:54] LABS: Glucose,Whole Blood 139 mg/dL (70-110)
[2024-02-09 13:23] VITALS: RESP 18
[2024-02-09] MEDS ORDERED: hydrALAZINE HCL 20 MG/ML 1 ML VIAL ONE (13:49)
[2024-02-09] MEDS: hydrALAZINE HCL 20 MG/ML 1 ML VIAL IVP ONE (13:54)
[2024-02-09 14:48] VITALS: BP 143/63; PULSE 61
== END 2024-02-09 14:35 | disposition home or self-care (01) ==
LOC: OR 07:26
PROVIDERS: ATTEND Surgery
DX: M86.8X8 Other osteomyelitis, other site (principal); Z79.82 Long term (current) use of aspirin; Z79.899 Other long term (current) drug therapy; Z79.811 Long term (current) use of aromatase inhibitors; Z98.890 Other specified postprocedural states; I10 Essential (primary) hypertension; E11.9 Type 2 diabetes mellitus without complications; Z90.49 Acquired absence of other specified parts of digestive tract; Z90.89 Acquired absence of other organs; Z88.0 Allergy status to penicillin; I25.10 Atherosclerotic heart disease of native coronary artery without angina pectoris; I25.2 Old myocardial infarction; E78.5 Hyperlipidemia, unspecified; I73.9 Peripheral vascular disease, unspecified; Z95.5 Presence of coronary angioplasty implant and graft; Z87.891 Personal history of nicotine dependence; N28.9 Disorder of kidney and ureter, unspecified; Z79.01 Long term (current) use of anticoagulants
CPT/HCPCS: 80048; 85027; 28825; J0360; J0690; J2405; J2001; 88305; 88311

== ENCOUNTER → 2024-09-24 | Outpatient (CLI) | payer BC ==
[2024-09-24 13:01] LABS: African American GFR (CKD) 39 (>60 ml/min/1.73 sqM); Blood Urea Nitrogen 32 mg/dL (7-17); Non-African American GFR(CKD) 34 (>60 ml/min/1.73 sqM)
== END | disposition home or self-care (01) ==
LOC: RADCTMAIN 11:57
PROVIDERS: ATTEND Surgery
DX: I70.92 Chronic total occlusion of artery of the extremities (principal)
CPT/HCPCS: 82565; 84520